=== PATIENT | male | born 1955 | race Caucasian/White ===

== ENCOUNTER 2020-07-30 22:53 | Outpatient (RCR) | payer BC, SELFPAY ==
[2020-07-30] MEDS: COVID-19 VACC, MRNA(PFIZER)/PF 30 MCG/0.3 ML SYRINGE IM (14:03)
[2020-08-20] MEDS: COVID-19 VACC, MRNA(PFIZER)/PF 30 MCG/0.3 ML SYRINGE IM (14:07)
== END 2020-10-29 23:59 ==
LOC: IMMUN 22:53
PROVIDERS: PCP Internal Medicine; Visit Provider Family Medicine
DX: Z23 Encounter for immunization (principal)
CPT/HCPCS: 0001A; 0002A; 91300

== ENCOUNTER 2024-04-05 17:51 | Inpatient (IN) | payer MEDICARE, OTHER, SELFPAY ==
[2024-04-05 17:52] VITALS: BP 151/103; PULSE 91; RESP 16; TEMP 36.8; O2SAT 96; BMI 34.4
--- NOTE | 2024-04-05 18:35 | EDS_ITS ---
HPI HPI - Fall History of Present Illness Chief Complaint: Fall Narrative Narrative: 69-year-old male past medical history of sciatica and spinal stenosis states he usually gets numbness of his low back and pain radiating down his legs. There are times when his legs buckled out from under him. He states that today, while he was in the bathroom, he experienced the same pain and numbness and his knees buckled causing him to fall hard onto his left hip. He states he may have struck his head but is unsure, but does not take any blood thinners. He states he was unable to move his leg especially at the hip secondary to pain. He also has mild ankle pain on the left as well. His was at home and heard him yelling. She called EMS because he was unable to get up secondary to his left hip and ankle pain. He denies any neck pain, no other injury. Pain is worsened by attempted movement of his left hip and lower extremity. [facility] Medical History (Updated 04/05/24 @ 22:00 by Efrain Lobo MD) Former tobacco use BPH (benign prostatic hyperplasia) Obesity GERD (gastroesophageal reflux disease) Lumbar back pain with radiculopathy affecting lower extremity History of pelvic fracture Hernia Arthritis Spinal stenosis of lumbar region Home Medications ?Medication ?Instructions ?Recorded ?Last Taken ?Type famotidine 40 mg tablet 40 mg PO DAILY 04/05/24 Unknown History finasteride 5 mg tablet 5 mg PO DAILY 04/05/24 Unknown History gabapentin 600 mg tablet 600 mg PO TID 04/05/24 Unknown History meloxicam 15 mg tablet 15 mg PO DAILY 04/05/24 Unknown History tamsulosin 0.4 mg capsule 0.4 mg PO DAILY 04/05/24 Unknown History tramadol 50 mg tablet 50 mg PO TID 04/05/24 Unknown History Allergy/AdvReac Type Severity Reaction Status Date / Time No Known Allergies Allergy Verified 04/05/24 17:52 Social History Smoking Status: Former smoker ROS ROS ED ROS Narrative Review of systems positive for left hip and left ankle pain. No headache. No neck pain. Denies any prodromal chest pain or shortness of breath. EXAM Physical Exam Narrative Exam Narrative: GCS 15. ABCs intact. Head is normocephalic and atraumatic. PERRL EOMI. Cardiovascular examination reveals a regular rate and rhythm. Lungs clear to auscultation bilaterally. Abdomen soft nontender with positive bowel sounds. Pelvis appears stable but he has diffuse tenderness to palpation left hip. His left leg is held in external rotation. There is diffuse tenderness to the left ankle as well. EHL intact, left. Range of motion of left hip limited secondary to pain. Positive pain with minimal logrolling of left femur. Const Vital Signs: 04/05/24 17:52 04/05/24 17:56 04/05/24 19:51 Temperature 98.3 F Temperature Source Oral Pulse Rate 91 85 Respiratory Rate 16 16 Respiratory Effort Normal Respiratory Depth Normal Respiratory Pattern Normal Blood Pressure 151/103 H 164/115 H Blood Pressure Mean 119 131 Pulse Ox 96 97 Oxygen Delivery Method Room Air Room Air Room Air Oxygen Flow Rate (L/min) 96 04/05/24 21:00 04/05/24 21:44 Temperature 97.8 F Temperature Source Pulse Rate 71 113 H Respiratory Rate 16 16 Respiratory Effort Respiratory Depth Respiratory Pattern Blood Pressure 161/112 H 166/109 H Blood Pressure Mean 128 128 Pulse Ox 97 96 Oxygen Delivery Method Room Air Oxygen Flow Rate (L/min) MDM MDM MDM Narrative Medical decision making narrative: Differential diagnosis includes but not limited to left hip fracture versus p elvic fracture versus fracture dislocation versus hip contusion. Patient had received 100 mcg of fentanyl per EMS. He was administered Dilaudid 0.5 mg here intravenously and x-rays obtained of the pelvis and left hip as well as the left ankle. Patient was unable to tolerate laying flat for CT of the brain, I do not think that it is necessarily indicated as I have low suspicion for intracranial hemorrhage because he does have a headache and there was no loss of consciousness. X-rays of the left hip interpreted by myself independently show intertrochanteric fracture of the left hip. I will obtain medical screening laboratories including CBC, CMP, EKG, and chest x-ray. I reviewed and interpreted the x-rays of the left ankle and see no evidence of acute fracture or dislocation. I reviewed the radiology report which confirms my independent interpretation. I reviewed the radiology report for the left hip as well, and they comment that there is no visualized fracture line and that the re is deformity and CT would be helpful. Although clinically and on my independent interpretation I do feel that he probably has an intertrochanteric hip fracture, I discussed patient with Dr. Lucas with orthopedics who agrees with CT scan of the left hip. Patient did receive additional dose of Dilaudid 0.5 mg and oral Valium 2.5 mg for muscle spasms. He was able to lie flat for the left hip CT scan. I reviewed the radiology report for the CT scan of the left hip which does show an impacted, comminuted left hip fracture that is intertrochanteric. Chest x-ray in 1 view interpreted by myself for preop clearance shows no evidence of an acute pneumothorax or pneumonia. I reviewed the radiology report which comments on right middle lobe atelectasis which confirms my independent interpretation. I was able to review his laboratory work, and he has a normal white count of 7.9 with hemoglobin 13.9 and platelet count low at 125 which I think is nonspecific. There is no prior with which to compare. CMP is remarkable for glucose of 137. Chloride slightly elevated at 109, normal sodium and potassium. EKG obtained and interpreted by myself independently as sinus tachycardia at [address] changes. No STEMI. Given his left hip fracture, I did inform Dr. Lucas of the CT results via backline. I then discussed patient with Dr. Beatriz Hsieh for admission to the medical surgical floor. Disposition admit in stable condition. History & Record Review Discussion w/independent historian: Patient and Family Lab Data Attestation: I reviewed the patient's lab results. Labs: Laboratory Results - last 24 hr 04/05/24 20:06 WBC 7.9 RBC 4.17 L Hgb 13.9 Hct 41.1 MCV 98.6 H MCH 33.3 H MCHC 33.8 RDW Std Deviation 48.8 H RDW Coeff of Roseann 13.4 Plt Count 125 L MPV 10.7 Immature Gran % (Auto) 0.800 Neut % (Auto) 85.1 H Lymph % (Auto) 7.5 L Wilbarger % (Auto) 6.0 Eos % (Auto) 0.3 Baso % (Auto) 0.3 Absolute Neuts (auto) 6.7 Absolute Lymphs (auto) 0.59 L Nucleated RBC % 0 Sodium 141 Potassium 4.4 Chloride 109 H Carbon Dioxide 27.0 Anion Gap 5 BUN 26 H Creatinine 0.88 Estim Creat Clear Calc 112.84 Est GFR (MDRD) Af Amer 111 Est GFR (MDRD) Non-Af 92 BUN/Creatinine Ratio 29.6 H Glucose 137 H Calcium 8.7 Total Bilirubin 1.30 H AST 24 ALT 23 Alkaline Phosphatase 71 Total Protein 7.2 Albumin 3.7 Globulin 3.5 Albumin/Globulin Ratio 1.1 Radiography Diagnostic Testing: Clinical Impression(s) from Imaging Studies Ankle X-Ray 04/05/24 18:55 IMPRESSION: Severe diffuse osteopenia of uncertain etiology. No acute fracture or dislocation Electronically Signed: Tevin Braun MD at 20:13 EST , Hip/Pelvis X-Ray 04/05/24 18:55 IMPRESSION: Deformity of the left hip possibly posttraumatic. CT would be helpful for further evaluation if strong clinical suspicion for acute fracture . Electronically Signed: Tevin Braun MD at 20:10 EST , Chest X-Ray 04/05/24 20:26 IMPRESSION: Probable right middle lobe atelectasis. Lateral view would be useful for further assessment Electronically Signed: Tevin Braun MD at 20:51 EST , Lower Extremity CT 04/05/24 20:43 IMPRESSION: Acute impacted comminuted impacted intertrochanteric fracture. Electronically Signed: Tevin Braun MD at 21:11 EST , Management Discussion w/another healthcare provider: Hospitalist (Dr. Hsieh) and Hand Bindery Assembly Worker (Dr. Lucas, Orthopaedics) Discharge Plan Dx/Rx/DC Orders Clinical Impression: Fall, Closed left hip fracture, Left ankle sprain Disposition Disposition: Acute Care Hospital [facility]
[2024-04-05] MEDS: HYDROmorphone 0.5 MG/0.5 ML SYRINGE IV ×2 (18:41→20:17)
--- NOTE | 2024-04-05 18:55 | RAD_ITS ---
STUDY: X-RAY - LEFT ANKLE REASON FOR EXAM: Male, 69 years old. trauma, pain TECHNIQUE: 2 view(s) of the ankle. COMPARISON: None. FINDINGS: Bony structures are severely osteopenic for age. No evidence for acute fracture or dislocation. Normal medial and lateral malleoli. Normal tibiotalar articulation and ankle mortise. Normal visualized talus and calcaneus. The visualized subtalar, talonavicular, calcaneocuboid and tarsal articulations are normal. The soft tissue structures are unremarkable. RAD/Ankle 2 Views IMPRESSION: Severe diffuse osteopenia of uncertain etiology. No acute fracture or dislocation Electronically Signed: Tevin Braun MD at 20:13 EST ,
--- NOTE | 2024-04-05 18:55 | RAD_ITS ---
STUDY: X-RAY - PELVIS AND LEFT HIP REASON FOR EXAM: Male, 69 years old. trauma, pain TECHNIQUE: 3 views of the pelvis and hip. COMPARISON: None. FINDINGS: There is a non-specific bowel gas pattern. Normal visualized soft tissue structures. Normal bilateral iliac wings, sacroiliac joints and visualized sacrum. Normal bilateral superior and inferior pubic rami. Normal pubic symphysis. Normal bilateral ischial tuberosities. There are degenerative changes of both hips . There is deformity of left hip although no fracture line is observed. CT would be useful for more definitive evaluation. RAD/HIP, UNI W/ Pelvis 2-3 Views IMPRESSION: Deformity of the left hip possibly posttraumatic. CT would be helpful for further evaluation if strong clinical suspicion for acute fracture . Electronically Signed: Tevin Braun MD at 20:10 EST ,
[2024-04-05 19:51] VITALS: BP 164/115; PULSE 85; RESP 16; O2SAT 97
--- NOTE | 2024-04-05 19:55 | EKG12_ITS ---
Test Reason : ARRYTH Blood Pressure : */* mmHG Vent. Rate : 101 BPM Atrial Rate : 101 BPM P-R Int : 148 ms QRS Dur : 94 ms QT Int : 330 ms P-R-T Axes : 31 6 58 degrees QTcB Int : 427 ms Sinus tachycardia Junctional ST depression, probably normal Borderline ECG Confirmed by CISCO BORDEN, BYRON ([id number]), associate editor SAM BOUCHER ([id number]) on 04/06/2024 1:50:22 P M Referred By: Efrain Lobo Confirmed By: BYRON PECK MD
[2024-04-05 20:13] LABS: Absolute Lymphocyte Count 0.59 X10^3/uL (0.83-4.51); Absolute Neutrophil Count 6.7 X10^3/uL (2.0-7.7); Basophil# 0.02 X10^3/uL; Basophil% 0.3 % (0-1); Eosinophil# 0.02 X10^3/uL; Eosinophils% 0.3 % (0-5); Hematocrit 41.1 % (40-54); Hemoglobin 13.9 g/dL (13.0-16.5); Lymphocyte # 0.59 X10^3/ul (0.83-4.51); Lymphocyte % 7.5 % (19-41); Mean Corp Hgb Conc 33.8 g/dL (32-36); Mean Corpuscular Hgb 33.3 pg (27.0-32.0); Mean Corpuscular Volume 98.6 fL (80-94); Mean Platelet Vol. 10.7 fl (6.2-12.0); Monocyte# 0.47 X10^3/uL; NRBC Flagged by Analyzer 0 % (0-5); Neutrophil # 6.72 X10^3/uL (2.7-7.7); Neutrophil % 85.1 % (47-70); POSITIVE DIFFERENTIAL YES; Platelet Count 125 K/mm3 (150-450); RBC Distribution Width CV 13.4 % (11.6-14.6); RBC Distribution Width SD 48.8 fl (35.1-43.9); Red Blood Count 4.17 M/mm3 (4.6-6.2); White Blood Count 7.9 K/mm3 (4.4-11.0)
[2024-04-05] MEDS: diazePAM 5 MG Tablet 2.5 MG PO (20:17)
--- NOTE | 2024-04-05 20:26 | RAD_ITS ---
STUDY: X-RAY CHEST REASON FOR EXAM: Male, 69 years old. cad TECHNIQUE: AP portable COMPARISON: None. FINDINGS: Mildly increased density obscuring the right lung border which may be consistent with mild right middle lobe atelectasis. There is no demonstrated pleural abnormality. Normal size heart. Normal mediastinum and rene. Normal visualized pulmonary arteries. Normal visualized aortic arch and descending thoracic aorta. Dorsal spine demonstrates degenerative changes. Normal visualized ribs, clavicles, and shoulders. There is no demonstrated abnormality of the visualized soft tissue structures of the upper abdomen. RAD/Chest 1 View (Portable) IMPRESSION: Probable right middle lobe atelectasis. Lateral view would be useful for further assessment Electronically Signed: Tevin Braun MD at 20:51 EST ,
[2024-04-05 20:33] LABS: ALB/GLOB Ratio 1.1 RATIO (0.9-2.4); AST(SGOT) 24 U/L (15-37); Alanine Aminotransfer ALT/SGPT 23 U/L (16-61); Albumin, Serum 3.7 g/dL (3.2-5.0); Alkaline Phosphatase 71 U/L (45-117); Anion Gap 5 (5-15); BUN 26 mg/dL (7-18); BUN/Creat Ratio 29.6 RATIO (10-20); Calcium,Total 8.7 mg/dL (8.5-10.1); Chloride 109 mmol/L (98-107); Creatinine, Serum 0.88 mg/dL (0.70-1.30); EST Glomerular Filtration Rate 92 mL/min (>60); Est Glom Filt Rate - Afr Amer 111 mL/min (>60); Estimated Creatinine Clearance 112.84 ml/min; Globulin 3.5 g/dL (2.2-4.2); Glucose 137 mg/dL (74-106); Potassium 4.4 mmol/L (3.5-5.1); Protein, Total 7.2 g/dL (6.4-8.2); Sodium Level 141 mmol/L (136-145)
--- NOTE | 2024-04-05 20:43 | CT_ITS ---
CT LEFT LOWER EXTREMITY WITH 3-D IMAGING CLINICAL INDICATION: pain TECHNIQUE: Axial CT images of the LEFT lower extremity was performed IV contrast material. Coronal and sagittal reformats were provided. The protocol utilizes one or more of the following dose reduction techniques: automated exposure control, adjustment of mA and/or kV according to patient size,and/or use of iterative reconstruction technique. RADIATION DOSAGE (If Supplied By Facility): CTDIvol = ( 46.14 ) mGy, DLP = ( 1359.25 ) mGycm COMPARISON: FINDINGS: Bones: There is an acute impacted comminuted intertrochanteric fracture with mild separation separation, overlapping and varus angulation of fracture fragments. No lytic or blastic osseous masses. Soft Tissues: There are mild edematous changes seen within the muscle bundles. The superficial soft tissues are unremarkable without evidence of edema, hematoma, or foreign body. CT/Extremity Lower without Contra IMPRESSION: Acute impacted comminuted impacted intertrochanteric fracture. Electronically Signed: Tevin Braun MD at 21:11 [facility] ,
[2024-04-05 21:00] VITALS: BP 161/112; PULSE 71; RESP 16; O2SAT 97
--- NOTE | 2024-04-05 21:42 | PCM.HP.STD ---
HPI - General General Date of Admission: 04/05/24 Date of Service: 04/05/24 Chief Complaint: Fall, L hip pain. HPI Narrative The patient is a 69 y/o M w/ PMHx: RADHA not using PAP therapy, Former, tobacco use, Obesity, BPH, Chronic neuropathy/sciatica with spinal stenosis, GERD who presents to the [facility] ED on 04/05/24 with history of chronic issues with paresthesias to the lumbar back rating down his legs unfortunately sometimes causing his legs to buckle and unfortunately on day of presentation he was in the restroom and experienced the same symptoms causing him to fall onto his left hip with unclear trauma to the head with immediate pain following as well as to the left ankle prompting to immediately call EMS as he was unable to get up and crying out for pain. He is currently reporting his pain 5/10 in severity, worse with movement attempts, but improved following ED interventions. Workup in the ED included T98.3, heart rate 91, BP 151/103, respiratory rate 16, 96% on room air, CBC with WBC 7.9, hemoglobin 13.9, platelet 125 with lymphopenia, CMP with chloride 109, BUN/creatinine 26/0.88, GFR 92, glucose 137, T. bili 1.30 otherwise hepatic profile not marked appearing, plain film of the left ankle with severe diffuse osteopenia of unclear etiology with no acute fracture or dislocation, plain film of the left hip and pelvis with deformity of the left hip possibly posttraumatic with recommended CT follow-up, chest x-ray with probable right middle lobe atelectasis, left lower extremity CT with acute impacted comminuted intertrochanteric fracture, EKG with sinus tachycardia with no acute evidence of ischemia. In the ED patient administered Dilaudid 0.5 mg IV x 1 as well as diazepam 2.5 mg p.o. x 1. Per ED report patient did receive 100 mcg of fentanyl per EMS on route secondary to pain. ED discussed case with Orthopedic surgeon Dr. Lucas. [facility] Medical History (Updated 04/05/24 @ 23:[address] Beatriz Hsieh MD) RADHA (obstructive sleep apnea) Former tobacco use BPH (benign prostatic hyperplasia) Obesity GERD (gastroesophageal reflux disease) Lumbar back pain with radiculopathy affecting lower extremity History of pelvic fracture Hernia Arthritis Spinal stenosis of lumbar region Home Medications ?Medication ?Instructions ?Recorded ?Last Taken ?Type famotidine 40 mg tablet 40 mg PO DAILY stomach 04/05/24 Unknown History finasteride 5 mg tablet 5 mg PO DAILY prostate 04/05/24 Unknown History gabapentin 600 mg tablet 600 mg PO TID Pain 04/05/24 Unknown History meloxicam 15 mg tablet 15 mg PO DAILY Pain 04/05/24 Unknown History tamsulosin 0.4 mg capsule 0.4 mg PO DAILY Bph 04/05/24 Unknown History tramadol 50 mg tablet 50 mg PO TID pain 04/05/24 Unknown History Allergy/AdvReac Type Severity Reaction Status Date / Time No Known Allergies Allergy Verified 04/05/24 17:52 Family History (Updated 04/05/24 @ 23:[address] Beatriz Hsieh MD) Mother Kidney disease Father Heart disease CAD (coronary artery disease) Hypertension Surgical History (Updated 04/05/24 @ 23:[address] Beatriz Hsieh MD) History of bilateral inguinal hernia repair History of ankle surgery S/P foot surgery, right Social History (Updated 04/05/24 @ 23:[address] Beatriz Hsieh MD) household members: spouse Smoking Status: Former smoker Tobacco: How many years used: 3 how long ago did patient quit smoking: Smoked in the 1980s x 3 years < 1/4 ppd. alcohol intake: never substance use type: does not use ROS ROS Narrative Admission Review of Systems: CONSTITUTIONAL: No weight loss, fever, chills, + weakness or fatigue. HEENT: Eyes: No visual loss, blurred vision, double vision or yellow sclerae. Ears, Nose, Throat: No hearing loss, sneezing, congestion, runny nose or sore throat. SKIN: No rash or itching, lesions, wounds. CARDIOVASCULAR: No chest pain, chest pressure or chest discomfort, palpitations, edema, orthopnea, syncopal events. RESPIRATORY: No shortness of breath, cough or sputum, wheezing, hemoptysis. GASTROINTESTINAL: No anorexia, nausea, vomiting or diarrhea, abdominal pain, melena, BRBPR. GENITOURINARY: + Intermittent chronic issues with urinary retention w/ BPH. No dysuria, frequency, urgency. NEUROLOGICAL: + intermittent lumbar back pain with radiculopathy/radicular pain. No headache, dizziness, syncope, paralysis, ataxia, focal weakness, change in bowel or bladder control, seizure. MUSCULOSKELETAL: + muscle, back pain, joint pain or stiffness. HEMATOLOGIC: No anemia, bleeding or bruising. LYMPHATICS: No enlarged nodes. No history of splenectomy. PSYCHIATRIC: No history of depression or anxiety. ENDOCRINOLOGIC: No reports of sweating, cold or heat intolerance. No polyuria or polydipsia. ALLERGIES: No history of asthma, hives, eczema or rhinitis. Vital Signs Vital Signs Vital Signs: 04/05/24 17:52 04/05/24 17:56 04/05/24 19:51 Temperature 98.3 F Temperature Source Oral Pulse Rate 91 85 Respiratory Rate 16 16 Respiratory Effort Normal Respiratory Depth Normal Respiratory Pattern Normal Blood Pressure 151/103 H 164/115 H Blood Pressure Mean 119 131 Pulse Ox 96 97 Oxygen Delivery Method Room Air Room Air Room Air Oxygen Flow Rate (L/min) 96 04/05/24 21:00 Temperature Temperature Source Pulse Rate 71 Respiratory Rate 16 Respiratory Effort Respiratory Depth Respiratory Pattern Blood Pressure 161/112 H Blood Pressure Mean 128 Pulse Ox 97 Oxygen Delivery Method Room Air Oxygen Flow Rate (L/min) Weight Weight: 275 lb 9.245 oz Body Mass Index (BMI) 34.4 Physical Exam Narrative Physical Examination: General: Awake, alert, oriented x 3 and cooperative, seated upright in the ED bed, severely uncomfortable, currently rating pain 10 out of 10, asking for more regimen. Skin: Normal color, normal turgor, no icterus, no cyanosis except for ecchymoses likely related with recent fall. HEENT: AT/NC, EOMI, PERRLA, moderately dry MM, no carotid bruits or JVD noted. Lungs: Diminished, greater bases, mildly increased respiratory rate but no evidence of any distress, no rales, ronchi or wheezing. Heart: Mildly tachycardic with regular rhythm; no gallop, rub audible. Abdomen: Soft, obese, NTTP, ND, mildly hyperactive BS, no appreciated HSM. Extremities: No cyanosis, no clubbing, mild ankle bilateral not markedly pitting edema, left lower extremity mildly shortened and rotated. Neurological: Patient awake, alert, oriented as noted, cognitive function intact; pupils equally reactive to light and accommodation, cranial nerves grossly normal, significantly limited movement given fall with left hip fracture, strength severely globally decreased. Psychiatric: Affect appears severely uncomfortable, no acute evidence of depressive or anxiety feelings. Results Lab / Micro Data 04/05/24 20:06 04/05/24 20:06 Labs: Laboratory Results - last 24 hr 04/05/24 20:06: WBC 7.9, RBC 4.17 L, Hgb 13.9, Hct 41.1, MCV 98.6 H, MCH 33.3 H, MCHC 33.8, RDW Std Deviation 48.8 H, RDW Coeff of Roseann 13.4, Plt Count 125 L, MPV 10.7, Immature Gran % (Auto) 0.800, Neut % (Auto) 85.1 H, Lymph % (Auto) 7.5 L, Grayson % (Auto) 6.0, Eos % (Auto) 0.3, Baso % (Auto) 0.3, Absolute Neuts (auto) 6.7, Absolute Lymphs (auto) 0.59 L, Nucleated RBC % 0, Sodium 141, Potassium 4.4, Chloride 109 H, Carbon Dioxide 27.0, Anion Gap 5, BUN 26 H, Creatinine 0.88, Estim Creat Clear Calc 112.84, Est GFR (MDRD) Af Amer 111, Est GFR (MDRD) Non-Af 92, BUN/Creatinine Ratio 29.6 H, Glucose 137 H, Calcium 8.7, Total Bilirubin 1.30 H, AST 24, ALT 23, Alkaline Phosphatase 71, Total Protein 7.2, Albumin 3.7, Globulin 3.5, Albumin/Globulin Ratio 1.1 Imaging Radiology Impression Ankle X-Ray 04/05/24 18:55 IMPRESSION: Severe diffuse osteopenia of uncertain etiology. No acute fracture or dislocation Electronically Signed: Tevin Braun MD at 20:13 EST Reading Location ID and State: [facility] / [place] Tel [phone], Service support , Hip/Pelvis X-Ray 04/05/24 18:55 IMPRESSION: Deformity of the left hip possibly posttraumatic. CT would be helpful for further evaluation if strong clinical suspicion for acute fracture . Electronically Signed: Tevin Braun MD at 20:10 EST , Chest X-Ray 04/05/24 20:26 IMPRESSION: Probable right middle lobe atelectasis. Lateral view would be useful for further assessment Electronically Signed: Tevin Braun MD at 20:51 EST Reading Location ID and State: [place] / [place] Tel [phone], Service support , Lower Extremity CT 04/05/24 20:43 IMPRESSION: Acute impacted comminuted impacted intertrochanteric fracture. Electronically Signed: Tevin Braun MD at 21:11 EST , Assessment & Plan Assessment/Plan (1) Closed left hip fracture: PLAN: Plan The patient is a 69 y/o M w/ PMHx: RADHA not using PAP therapy, Former, tobacco use, Obesity, BPH, Chronic neuropathy/sciatica with spinal stenosis, GERD who presents to the [facility] ED on 04/05/24 with history of chronic issues with paresthesias to the lumbar back rating down his legs unfortunately sometimes causing his legs to buckle and unfortunately on day of presentation he was in the restroom and experienced the same symptoms causing him to fall onto his left hip with unclear trauma to the head with immediate pain following as well as to the left ankle prompting to immediately call EMS as he was unable to get up and crying out for pain. #1. General debility, left hip pain s/p mechanical fall w/ left acutely impacted comminuted intertrochanteric fracture: Orthopedic surgery consulted from ED. Will admit to MS, maintain NPO after midnight for planned operative intervention, continue gentle IVFs, casper placement, monitor I/Os, frequent positioning, fall precautions, as needed pain, anti-emetic regimen, continue chronic gabapentin home regimen. PT/OT following operative intervention. CM consulted for discharge planning. Per NSQIP patient risk on the lower to moderate and with no marked medical history with EKG with ST with no acute evidence of ischemia thus given no acute concerning findings agree with progression to operative intervention as soon as surgery is able which was discussed with surgery. #2. Elevated BP without hypertensive diagnosis: Admission BP/ED BP elevated above goal, possibly related with acute presentation pain, continue to monitor and add regimen if appropriate, as needed IV hydralazine in the interim #3. Thrombocytopenia, unclear chronicity: Admission platelet 125, no comparison baseline, will continue to trend CBC. #4. Hyperglycemia, no diabetic history reported: Admission glucose 137, possibly stress response given pain and acute presentation as noted, will obtain hemoglobin A1c. #5. Chronic lumbar back pain with radiculopathy: Complicates presentation, encourage positional changes once able, will continue patient chronic gabapentin regimen with additional adjustments to pain regimen given acute presentation as noted above. #6. BPH: We will continue patient home finasteride and Flomax regimen. #7. Obesity: Weight loss and lifestyle changes encouraged. #8. GERD: We will continue patient on famotidine regimen. #9. Former tobacco use: Encourage continued tobacco cessation. #10. RADHA: Not using PAP therapy but if needed amenable he notes. #11. DVT prophylaxis: SCDs in preparation for operative intervention 04/06/2024. #12. CODE status: Patient HCPOA and LW are not in place but his who is present would be his decision maker he notes if he was unable. Discussed CODE status at length including difference between FULL code, DNR-CCA and DNR-CC status. Following discussions about the differences in these status, requested Full Code status. Advanced Care Planning Face to Face Time: 16 minutes. Charges/Coding Visit Charges Inpatient E&M: 02136 Init Hosp L3 Procedures Hospitalists Procedures: 13900 Advncd Care Plan 30 Min
[2024-04-05 21:44] VITALS: BP 166/109; PULSE 113; RESP 16; TEMP 36.6; O2SAT 96
[2024-04-05 23:02] VITALS: BP 147/87; PULSE 118; RESP 18; TEMP 36.6; O2SAT 94
[2024-04-05] MEDS: Morphine 4 MG/ML Syringe IV (23:16)
[2024-04-05] MEDS: Gabapentin 600 MG Tablet PO (23:36)
[2024-04-05] MEDS: Senna/Docusate Sodium 1 Tablet 2 TABLET PO (23:36)
[2024-04-06] VITALS (18 sets, daily range): BP systolic 116–143; BP diastolic 67–83; PULSE 86–122; RESP 16–18; TEMP 36.2–37.6; O2SAT 93–97; BMI 33.1; BMI 32.9
[2024-04-06] MEDS: oxyCODONE 5 MG Tablet PO ×4 (00:20→23:18)
[2024-04-06] MEDS: Acetaminophen 325 MG Tablet 650 MG PO ×3 (00:20→23:18)
[2024-04-06] MEDS: Ondansetron 4 MG/2 ML Vial IV (00:49)
[2024-04-06] MEDS: Morphine 4 MG/ML Syringe IV ×5 (01:18→11:10)
[2024-04-06] MEDS: Gabapentin 600 MG Tablet PO ×2 (04:59→20:55)
[2024-04-06 07:09] LABS: Absolute Lymphocyte Count 0.88 X10^3/uL (0.83-4.51); Absolute Neutrophil Count 5.7 X10^3/uL (2.0-7.7); Hematocrit 37.3 % (40-54); Hemoglobin 12.7 g/dL (13.0-16.5); Lymphocyte # 0.88 X10^3/ul (0.83-4.51); Lymphocyte % 12.2 % (19-41); Mean Corpuscular Hgb 33.1 pg (27.0-32.0); Mean Corpuscular Volume 97.1 fL (80-94); Mean Platelet Vol. 10.8 fl (6.2-12.0); Monocyte# 0.57 X10^3/uL; Monocyte% 7.9 % (0-10); NRBC Flagged by Analyzer 0 % (0-5); Neutrophil % 79.3 % (47-70); Platelet Count 127 K/mm3 (150-450); RBC Distribution Width CV 13.4 % (11.6-14.6); RBC Distribution Width SD 47.9 fl (35.1-43.9); Red Blood Count 3.84 M/mm3 (4.6-6.2); White Blood Count 7.2 K/mm3 (4.4-11.0)
[2024-04-06 07:51] LABS: ALB/GLOB Ratio 1.1 RATIO (0.9-2.4); AST(SGOT) 20 U/L (15-37); Alanine Aminotransfer ALT/SGPT 18 U/L (16-61); Albumin, Serum 3.4 g/dL (3.2-5.0); Alkaline Phosphatase 64 U/L (45-117); Anion Gap 5 (5-15); BUN 20 mg/dL (7-18); BUN/Creat Ratio 31.1 RATIO (10-20); Calcium,Total 8.8 mg/dL (8.5-10.1); Chloride 107 mmol/L (98-107); Creatinine, Serum 0.64 mg/dL (0.70-1.30); EST Glomerular Filtration Rate 131 mL/min (>60); Est Glom Filt Rate - Afr Amer 158 mL/min (>60); Estimated Creatinine Clearance 121.76 ml/min; Globulin 3.1 g/dL (2.2-4.2); Glucose 142 mg/dL (74-106); Potassium 3.8 mmol/L (3.5-5.1); Protein, Total 6.5 g/dL (6.4-8.2); Sodium Level 139 mmol/L (136-145)
--- NOTE | 2024-04-06 08:01 | PN.HOSP_ITS ---
Reason for Visit Reason for Visit: Diagnoses Fracture of unspecified part of neck of left femur, initial encounter for closed fracture (04/05/24) Subjective Subjective Patient is a 69-year-old gentleman who presented to the emergency department following a fall imaging studies demonstrated left acutely impacted comminuted intertrochanteric fracture. Admitted to regular nursing floor with consultation placed orthopedic surgery Objective Data Objective Data Vital Signs: Vital Signs Temp Pulse Resp BP Pulse Ox O2 Del Method O2 Flow Rate 98.5 F 117 H 16 129/69 H 97 Room Air 96 04/06/24 04:52 04/06/24 05:04 04/06/24 04:52 04/06/24 04:52 04/06/24 04:52 04/06/24 04:52 04/05/24 17:56 Oxygen Flow Rate (L/min) 96 Oxygen Delivery Method Room Air Weight: 120.2 kg Body Mass Index (BMI) 32.9 Intake & Output: Intake and Output for Last 24 Hours 04/04/24 04/05/24 04/06/24 23:59 23:59 23:59 Intake Total 0 / 300 300 / 300 Output Total 275 / 275 450 / 450 Balance -275 / 25 -150 / -150 Lab / Micro Data 04/06/24 06:35 04/06/24 06:35 Labs: Laboratory Results - last 24 hr 04/05/24 20:06: WBC 7.9, RBC 4.17 L, Hgb 13.9, Hct 41.1, MCV 98.6 H, MCH 33.3 H, MCHC 33.8, RDW Std Deviation 48.8 H, RDW Coeff of Roseann 13.4, Plt Count 125 L, MPV 10.7, Immature Gran % (Auto) 0.800, Neut % (Auto) 85.1 H, Lymph % (Auto) 7.5 L, [place] % (Auto) 6.0, Eos % (Auto) 0.3, Baso % (Auto) 0.3, Absolute Neuts (auto) 6.7, Absolute Lymphs (auto) 0.59 L, Nucleated RBC % 0, Sodium 141, Potassium 4.4, Chloride 109 H, Carbon Dioxide 27.0, Anion Gap 5, BUN 26 H, Creatinine 0.88, Estim Creat Clear Calc 112.84, Est GFR (MDRD) Af Amer 111, Est GFR (MDRD) Non-Af 92, BUN/Creatinine Ratio 29.6 H, Glucose 137 H, Calcium 8.7, Total Bilirubin 1.30 H, AST 24, ALT 23, Alkaline Phosphatase 71, Total Protein 7.2, Albumin 3.7, Globulin 3.5, Albumin/Globulin Ratio 1.1 04/06/24 06:35: WBC 7.2, RBC 3.84 L, Hgb 12.7 L, Hct 37.3 L, MCV 97.1 H, MCH 33.1 H, MCHC 34.0, RDW Std Deviation 47.9 H, RDW Coeff of Roseann 13.4, Plt Count 127 L, MPV 10.8, Immature Gran % (Auto) 0.600, Neut % (Auto) 79.3 H, Lymph % (Auto) 12.2 L, [place] % (Auto) 7.9, Eos % (Auto) 0.0, Baso % (Auto) 0.0, Absolute Neuts (auto) 5.7, Absolute Lymphs (auto) 0.88, Nucleated RBC % 0, Sodium 139, Potassium 3.8, Chloride 107, Carbon Dioxide 27.0, Anion Gap 5, BUN 20 H, C reatinine 0.64 L, Estim Creat Clear Calc 121.76, Est GFR (MDRD) Af Amer 158, Est GFR (MDRD) Non-Af 131, BUN/Creatinine Ratio 31.1 H, Glucose 142 H, Calcium 8.8, Total Bilirubin 2.10 H, AST 20, ALT 18, Alkaline Phosphatase 64, Total Protein 6.5, Albumin 3.4, Globulin 3.1, Albumin/Globulin Ratio 1.1 Radiography Diagnostic Testing: Radiology Impression Ankle X-Ray 04/05/24 18:55 IMPRESSION: Severe diffuse osteopenia of uncertain etiology. No acute fracture or dislocation Electronically Signed: Tevin Braun MD at 20:13 EST , Hip/Pelvis X-Ray 04/05/24 18:55 IMPRESSION: Deformity of the left hip possibly posttraumatic. CT would be helpful for further evaluation if strong clinical suspicion for acute fracture . Electronically Signed: Tevin Braun MD at 20:10 EST , Chest X-Ray 04/05/24 20:26 IMPRESSION: Probable right middle lobe atelectasis. Lateral view would be useful for further assessment Electronically Signed: Tevin Braun MD at 20:51 EST , Lower Extremity CT 04/05/24 20:43 IMPRESSION: Acute impacted comminuted impacted intertrochanteric fracture. Electronically Signed: Tevin Braun MD at 21:11 EST , Physical Exam Narrative GENERAL: cooperative HEENT: Atraumatic; normocephalic EYES; Anicteric, Normal Conjunctiva NECK; supple, normal thyroid, RESPIRATORY: Diminished to auscultation CARDIOVASCULAR: Regular S1 S2, GI: soft, normoactive bowel sounds, : No Renal angle tenderness; EXTREMITIES: No edema, no clubbing, MUSCULOSKELETAL: no muscle wasting NEURO: Awake; no lateralizing signs. SKIN: No Rash PSYCH; Flat affect Assessment & Plan Assessment/Plan (1) Closed left hip fracture: PLAN: Plan Patient is a 69-year-old gentleman who presented to the emergency department following a fall imaging studies demonstrated left acutely impacted comminuted intertrochanteric fracture. Admitted to regular nursing floor with consultation placed orthopedic surgery 1. Fall with left acutely impacted comminuted intertrochanteric fracture. -Admitted to regular nursing floor treatment initiated with pain meds immobilization with consultation placed to orthopedic surgery. Patient preop assessment as documented by admitting physician 2.Elevated blood pressure on admission ? Patient does not have history of hypertension. This is reactive to. Do expect improvement seen blood pressure once pain is adequately controlled 3. Peripheral neuropathy ? Patient is a gabapentin 4. GERD ? On famotidine 5. BPH with lower urinary obstructive symptoms - Patient treated with tamsulosin and finasteride continued 7. Mild thrombocytopenia -Ordered CBC with differential for monitoring 8. Class I obesity with BMI of 33.1 ? Complicating care weight loss advised 9. Obstructive sleep apnea ? Consistent use of PAP therapy encouraged 10. Generalized osteoarthritis ? Patient is on meloxicam at home 11. DVT prophylaxis ? Bilateral SCDs for now with plans to initiate chemoprophylaxis following patient's surgery Time spent in the patient's overall evaluation,decision-making process, review of diagnostic data, adjustment of management, discussion with other providers, nursing nursing and ancillary staff involved in patient's care documentation, 50 Minutes Charges/Coding Visit Charges Inpatient E&M: 42172 Subs Hosp L3
[2024-04-06] MEDS: 0.9% Saline Lock 10 ML Syringe IV ×2 (09:04→11:10)
[2024-04-06 10:02] LABS: Hemoglobin A1c 5.6 % (3.8-5.6)
[2024-04-06] MEDS: Lactated Ringers 1,000 ML 15 ML IV (12:13)
--- NOTE | 2024-04-06 12:39 | CONS.ORTHO ---
Documented by User: DIANA Colon 04/06/24 13:07 HPI Consult Data Date of Consult: 04/06/24 HPI Narrative HPI Narrative: TAVO SALAZAR, is a 69 M who presents w/ PMHx: RADHA not using PAP therapy, Former, tobacco use, Obesity, BPH, Chronic neuropathy/sciatica with spinal stenosis, GERD who presents to the [facility] ED on 04/05/24 with history of chronic issues with paresthesias to the lumbar back rating down his legs unfortunately sometimes causing his legs to buckle and unfortunately on day of presentation he was in the restroom and experienced the same symptoms causing him to fall onto his left hip with unclear trauma to the head with immediate pain following as well as to the left ankle prompting to immediately call EMS as he was unable to get up and crying out for pain. [facility] Medical History RADHA (obstructive sleep apnea) Former tobacco use BPH (benign prostatic hyperplasia) Obesity GERD (gastroesophageal reflux disease) Lumbar back pain with radiculopathy affecting lower extremity History of pelvic fracture Hernia Arthritis Spinal stenosis of lumbar region Home Medications ?Medication ?Instructions ?Recorded ?Last Taken ?Type famotidine 40 mg tablet 40 mg PO DAILY stomach 04/05/24 Unknown History finasteride 5 mg tablet 5 mg PO DAILY prostate 04/05/24 Unknown History gabapentin 600 mg tablet 600 mg PO TID Pain 04/05/24 Unknown History meloxicam 15 mg tablet 15 mg PO DAILY Pain 04/05/24 Unknown History tamsulosin 0.4 mg capsule 0.4 mg PO DAILY Bph 04/05/24 Unknown History tramadol 50 mg tablet 50 mg PO TID pain 04/05/24 Unknown History Allergy/AdvReac Type Severity Reaction Status Date / Time No Known Allergies Allergy Verified 04/05/24 17:52 Family History Mother Kidney disease Father Heart disease CAD (coronary artery disease) Hypertension Surgical History History of bilateral inguinal hernia repair History of ankle surgery S/P foot surgery, right Social History household members: spouse Smoking Status: Former smoker Tobacco: How many years used: 3 how long ago did patient quit smoking: Smoked in the 1980s x 3 years < 1/4 ppd. alcohol intake: never substance use type: does not use Vital Signs Vital Signs Vital Signs: 04/05/24 17:52 04/05/24 17:56 04/05/24 19:51 Temperature 98.3 F Temperature Source Oral Pulse Rate 91 85 Respiratory Rate 16 16 Respiratory Effort Normal Respiratory Depth Normal Respiratory Pattern Normal Blood Pressure 151/103 H 164/115 H Blood Pressure Mean 119 131 Blood Pressure Source Blood Pressure Position Blood Pressure Location Pulse Ox 96 97 Oxygen Delivery Method Room Air Room Air Room Air Oxygen Flow Rate (L/min) 96 04/05/24 21:00 04/05/24 21:44 04/05/24 23:02 Temperature 97.8 F 98 F Temperature Source Temporal Pulse Rate 71 113 H 118 H Respiratory Rate 16 16 18 Respiratory Effort Respiratory Depth Respiratory Pattern Blood Pressure 161/112 H 166/109 H 147/87 H Blood Pressure Mean 128 128 107 Blood Pressure Source Monitor Blood Pressure Position Semi-Fowlers Blood Pressure Location Left Forearm Pulse Ox 97 96 94 Oxygen Delivery Method Room Air Room Air Oxygen Flow Rate (L/min) 04/06/24 01:17 04/06/24 01:22 04/06/24 04:52 Temperature 98.5 F Temperature Source Oral Pulse Rate 122 H 117 H Respiratory Rate 16 16 Respiratory Effort Normal Non-Labored Respiratory Depth Normal Respiratory Pattern Normal Blood Pressure 138/79 H 129/69 H Blood Pressure Mean 98 89 Blood Pressure Source Monitor Monitor Blood Pressure Position Semi-Fowlers Semi-Fowlers Blood Pressure Location Right Forearm Left Arm Pulse Ox 94 97 Oxygen Delivery Method Room Air Room Air Oxygen Flow Rate (L/min) 04/06/24 05:04 04/06/24 07:36 04/06/24 08:14 Temperature 97.8 F Temperature Source Temporal Pulse Rate 117 H 103 H Respiratory Rate 18 Respiratory Effort Respiratory Depth Respiratory Pattern Blood Pressure 136/81 H Blood Pressure Mean 99 Blood Pressure Source Monitor Blood Pressure Position Semi-Fowlers Blood Pressure Location Left Arm Pulse Ox 97 Oxygen Delivery Method Room Air Room Air Oxygen Flow Rate (L/min) 04/06/24 08:17 Temperature Temperature Source Pulse Rate Respiratory Rate Respiratory Effort Normal Non-Labored Respiratory Depth Normal Respiratory Pattern Normal Blood Pressure Blood Pressure Mean Blood Pressure Source Blood Pressure Position Blood Pressure Location Pulse Ox Oxygen Delivery Method Room Air Oxygen Flow Rate (L/min) Weight Weight: 264 lb 15.93 oz Body Mass Index (BMI) 32.9 Physical Exam Const alert and oriented x3 Extremity Extremity Narrative: Left hip pain, leg is shorted with external rotation. Lab / Micro Data 04/06/24 06:35 04/06/24 06:35 Labs: Laboratory Results - last 24 hr 04/05/24 20:06: WBC 7.9, RBC 4.17 L, Hgb 13.9, Hct 41.1, MCV 98.6 H, MCH 33.3 H, MCHC 33.8, RDW Std Deviation 48.8 H, RDW Coeff of Roseann 13.4, Plt Count 125 L, MPV 10.7, Immature Gran % (Auto) 0.800, Neut % (Auto) 85.1 H, Lymph % (Auto) 7.5 L, [place] % (Auto) 6.0, Eos % (Auto) 0.3, Baso % (Auto) 0.3, Absolute Neuts (auto) 6.7, Absolute Lymphs (auto) 0.59 L, Nucleated RBC % 0, Sodium 141, Potassium 4.4, Chloride 109 H, Carbon Dioxide 27.0, Anion Gap 5, BUN 26 H, Creatinine 0.88, Estim Creat Clear Calc 112.84, Est GFR (MDRD) Af Amer 111, Est GFR (MDRD) Non-Af 92, BUN/Creatinine Ratio 29.6 H, Glucose 137 H, Calcium 8.7, Total Bilirubin 1.30 H, AST 24, ALT 23, Alkaline Phosphatase 71, Total Protein 7.2, Albumin 3.7, Globulin 3.5, Albumin/Globulin Ratio 1.1 04/06/24 06:35: WBC 7.2, RBC 3.84 L, Hgb 12.7 L, Hct 37.3 L, MCV 97.1 H, MCH 33.1 H, MCHC 34.0, RDW Std Deviation 47.9 H, RDW Coeff of Roseann 13.4, Plt Count 127 L, MPV 10.8, Immature Gran % (Auto) 0.600, Neut % (Auto) 79.3 H, Lymph % (Auto) 12.2 L, [place] % (Auto) 7.9, Eos % (Auto) 0.0, Baso % (Auto) 0.0, Absolute Neuts (auto) 5.7, Absolute Lymphs (auto) 0.88, Nucleated RBC % 0, Sodium 139, Potassium 3.8, Chloride 107, Carbon Dioxide 27.0, Anion Gap 5, BUN 20 H, Creatinine 0.64 L, Estim Creat Clear Calc 121.76, Est GFR (MDRD) Af Amer 158, Est GFR (MDRD) Non-Af 131, BUN/Creatinine Ratio 31.1 H, Glucose 142 H, Hemoglobin A1c 5.6, Calcium 8.8, Total Bilirubin 2.10 H, AST 20, ALT 18, Alkaline Phosphatase 64, Total Protein 6.5, Albumin 3.4, Globulin 3.1, Albumin/Globulin Ratio 1.1, Blood Type O POSITIVE, Antibody Screen NEGATIVE Imaging Radiology Impression Ankle X-Ray 04/05/24 18:55 IMPRESSION: Severe diffuse osteopenia of uncertain etiology. No acute fracture or dislocation Electronically Signed: Tevin Braun MD at 20:13 EST , Hip/Pelvis X-Ray 04/05/24 18:55 IMPRESSION: Deformity of the left hip possibly posttraumatic. CT would be helpful for further evaluation if strong clinical suspicion for acute fracture . Electronically Signed: Tevin Braun MD at 20:10 EST , Chest X-Ray 04/05/24 20:26 IMPRESSION: Probable right middle lobe atelectasis. Lateral view would be useful for further assessment Electronically Signed: Tevin Braun MD at 20:51 EST , Lower Extremity CT 04/05/24 20:43 IMPRESSION: Acute impacted comminuted impacted intertrochanteric fracture. Electronically Signed: Tevin Braun MD at 21:11 EST , Assessment & Plan Assessment/Plan (1) Fracture, intertrochanteric, left femur: QUALIFIERS: Encounter type: initial encounter Fracture alignment: displaced Fracture type: closed Qualified Code(s): S72.142A - Displaced intertrochanteric fracture of left femur, initial encounter for closed fracture Documented by User: Dr. Jian Lucas MD 04/06/24 13:04 HPI Consult Data Date of Consult: 04/06/24 HPI Narrative HPI Narrative: TAVO SALAZAR, is a 69 M who presents w/ PMHx: RADHA not using PAP therapy, Former, tobacco use, Obesity, BPH, Chronic neuropathy/sciatica with spinal stenosis, GERD who presents to the [facility] ED on 04/05/24 with history of chronic issues with paresthesias to the lumbar back rating down his legs unfortunately sometimes causing his legs to buckle and unfortunately on day of presentation he was in the restroom and experienced the same symptoms causing him to fall onto his left hip with unclear trauma to the head with immediate pain following as well as to the left ankle prompting to immediately call EMS as he was unable to get up and crying out for pain. I was consulted for left hip intertrochanteric fracture. I saw the patient in 306 this morning. Patient has pain and tenderness around the left hip. He also complains of some pain around the left ankle. He has had right ankle surgery many decades ago. Prior to the injury he was able to walk with a cane. He has severe balance issues which he attributes to his spinal pathology. He occasionally uses a walker. He had a pelvic fracture in the past and also had bone graft taken from his right iliac crest for likely has foot and ankle surgery many years ago. [facility] Medical History RADHA (obstructive sleep apnea) Former tobacco use BPH (benign prostatic hyperplasia) Obesity GERD (gastroesophageal reflux disease) Lumbar back pain with radiculopathy affecting lower extremity History of pelvic fracture Hernia Arthritis Spinal stenosis of lumbar region Home Medications ?Medication ?Instructions ?Recorded ?Last Taken ?Type famotidine 40 mg tablet 40 mg PO DAILY stomach 04/05/24 Unknown History finasteride 5 mg tablet 5 mg PO DAILY prostate 04/05/24 Unknown History gabapentin 600 mg tablet 600 mg PO TID Pain 04/05/24 Unknown History meloxicam 15 mg tablet 15 mg PO DAILY Pain 04/05/24 Unknown History tamsulosin 0.4 mg capsule 0.4 mg PO DAILY Bph 04/05/24 Unknown History tramadol 50 mg tablet 50 mg PO TID pain 04/05/24 Unknown History Allergy/AdvReac Type Severity Reaction Status Date / Time No Known Allergies Allergy Verified 04/05/24 17:52 Family History Mother Kidney disease Father Heart disease CAD (coronary artery disease) Hypertension Surgical History History of bilateral inguinal hernia repair History of ankle surgery S/P foot surgery, right Social History household members: spouse Smoking Status: Former smoker Tobacco: How many years used: 3 how long ago did patient quit smoking: Smoked in the 1980s x 3 years < 1/4 ppd. alcohol intake: never substance use type: does not use Physical Exam Extremity Extremity Narrative: Left hip pain, leg is shorted with external rotation. Distal neurovascular exam is intact. Mild tenderness along the left ankle but able to dorsiflex and plantarflex with minimal pain. Lab / Micro Data 04/06/24 06:35 04/06/24 06:35 Assessment & Plan Assessment/Plan (1) Fracture, intertrochanteric, left femur: QUALIFIERS: Encounter type: initial encounter Fracture alignment: displaced Fracture type: closed Qualified Code(s): S72.142A - Displaced intertrochanteric fracture of left femur, initial encounter for closed fracture PLAN: Plan I evaluated the x-rays done in the ER last night. I also looked through the CT of the pelvis and hip done last night. These show comminuted fracture of the left intertrochanteric femur. No obvious fracture on the ankle on the left side. I explained to the patient the imaging findings. I went through different treatment options. Surgical treatment would allow earliest possibility of return to ambulation with reduced risk of recumbency complications. I recommend left hip ORIF with cephalomedullary nailing. All risk benefits and alternatives were discussed in detail. The risks include but are not limited to infection, bleeding, hematoma formation, need for further surgery, injury to nerves and vessels, shortening, limb length discrepancy, persistent limp, persistent pain, recurrent falls, hardware failure, need for hip replacement, need for further surgery, RADHA implant fracture, DVT, pulm embolism, cardiopulmonary event. Patient understands and agrees to proceed with surgery. Consent was signed. Charges/Coding Visit Charges Inpatient E&M: 36320 Init Hosp L3
--- NOTE | 2024-04-06 12:54 | PRE.ANES_ITS ---
ASA Classification* ASA Classification ASA Classification: 3 Assessment & Plan Anesthesia* Anesthesia Assessment Anesthesia Assessment: Discussed sedation and/or anesthesia options, risks, benefits, and alternatives with patient/parents/legal guardian/POA. Questions invited. The patient/parents/legal guardian/POA seems to understand and agrees to proceed with anesthesia plan. Reviewed the physical assessment, medical history, allergy history and patient home medications list prior to surgery/procedure/anesthetic and documented any changes. Performed airway and anesthesia risk assessments. Anesthesia Type Anesthesia Type: General History Source History Obtained from:: Patient and Chart Anesthesia Focused Assessment* Temperature: 97.8 F Pulse Rate: 103 Blood Pressure: 136/81 Respiratory Rate: 18 Pulse Ox: 97 Oxygen Delivery Method: Room Air Airway Assessment Mouth opens: >3 cm Mallampati Score: III Teeth Condition: Missing (Multiple missing teeth) and Partial Neck Range of motion (ROM): Limited ROM (Slight decrease in extension.) Pertinent Findings EKG Pertinent Findings:: April 05, 2024. Sinus tachycardia [address] depression probably normal Focused Labs Anesthesia Preop lab: CBC WBC 7.2 K/mm3 (4.4-11.0) 04/06/24 06:35 RBC 3.84 M/mm3 (4.6-6.2) L 04/06/24 06:35 Hgb 12.7 g/dL (13.0-16.5) L 04/06/24 06:35 Hct 37.3 % (40-54) L 04/06/24 06:35 Plt Count 127 K/mm3 (150-450) L 04/06/24 06:35 CHEMISTRY Potassium 3.8 mmol/L (3.5-5.1) 04/06/24 06:35 Sodium 139 mmol/L (136-145) 04/06/24 06:35 BUN 20 mg/dL (7-18) H 04/06/24 06:35 Creatinine 0.64 mg/dL (0.70-1.30) L 04/06/24 06:35 Glucose 142 mg/dL (74-106) H 04/06/24 06:35 COAG Pre-Assessment Diagnosis/Proposed Procedure Planned Operative Procedure(s): Gamma nail left hip Anesthesia History 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 When Was Last Pacemaker Check QUESTION #4 FULL TEXT: You/Your Family Experience fever (hyperthermia) with Anesthesia Last Oral Intake Last Oral intake: Last Oral Intake NPO since Meds taken in AM with sips of water? Meds patient instructed to take am of surgery Any additional information?: Yes NPO since: 00:00 Meds taken in AM with sips of water?: Yes PONV PONV - technology lab teacher: PONV - technology lab teacher Female HX of Motion Sickness HX of N/V After Surgery Non-Smoker Duration of Surgery greater than 60 minutes Number of Risk Factors PONV Score Height & Weight Height & Weight: Anesthesia: Height & Weight Height 6 ft 3 in 04/06/24 01:20 Weight: 120.2 kg 04/06/24 06:00 Body Mass Index (BMI) 32.9 04/06/24 06:00 Respiratory Assessment Respiratory Assessment - technology lab teacher: Respiratory Tract Infection Hx - technology lab teacher Hx Respiratory Tract Infection No 04/05/24 23:00 STOP Sleep Apnea STOP Sleep Apnea - technology lab teacher: STOP Sleep Apnea - technology lab teacher Hx Hypertension No 04/05/24 22:56 Hx Sleep Apnea Yes 04/05/24 22:56 CPAP No 04/05/24 22:56 BIPAP No 04/05/24 22:56 Do you snore loudly (louder than talking or can be heard Do you often feel tired/ fatigued/ sleepy during daytime? Has anyone observed you stop breathing during sleep? STOP Results Positive 04/05/24 22:56 QUESTION #5 FULL TEXT : Do you snore loudly (louder than talking or can be heard through closed doors)? Tobacco Use History Tobacco Use History - technology lab teacher: Tobacco Use History - technology lab teacher Tobacco Use Smoking Status Former smoker 04/05/24 23:17 Hx Tobacco Use No 04/05/24 22:56 Years Smoking Packs Smoked per Day Smoking Cessation Date was No - quit smoking greater 04/05/24 22:56 within the last 15 years than 15 years ago Hx Smoking Cessation Date Hx Smoking Cessation Counseling Hematologic Medial History Hematologic Hx - technology lab teacher: Hematologic Medical Hx - chemical processor Hx of Blood Transfusion Yes 04/05/24 22:56 Hx of Transfusion in last 3 No 04/05/24 22:56 Months Date of Last Transfusion (if within last 3 months) Ever experience any problems No 04/05/24 22:56 with transfusion(s)? Specify any problems Hx of Preganancy in last 3 N/A 04/05/24 22:56 Months Nurse Filling Out Transfusion DREDICK 04/05/24 22:56 & Questions: Date: 04/05/24 04/05/24 22:56 Time: 22:57 04/05/24 22:56 Patient unable to answer at this time (ie. confused, unrespo /Reproduction History /Reproductive History - technology lab teacher: /Reproductive Hx- technology lab teacher Hx Now No 04/05/24 23:00 Gestational Age (in weeks): EDC: Hx Hx Para Hx Section SAB No 04/05/24 23:00 Active Medications Active Medications: Current Medications Generic Name Dose Route Start Last Admin Trade Name Freq PRN Reason Stop Dose Admin Acetaminophen 650 mg 04/05/24 22:48 04/06/24 04:58 Acetaminophen 325 Mg Tablet PO 650 mg Q4H PRN PRN Administration Fever, pain 1-10 Al Hydroxide/Mg Hydroxide 30 ml 04/05/24 22:48 Mag Hydrox/Al Hydrox/Simeth 30 Ml Udc PO Q6H PRN PRN Gastric Burning Albuterol Sulfate 2.5 mg 04/05/24 22:48 Albuterol 2.5 Mg/3 Ml Vial.Neb. INHALATION Q2H PRN PRN Dyspnea, wheezing Famotidine 40 mg 04/06/24 10:00 04/06/24 08:10 Famotidine 20 Mg Tablet PO Not Given DAILY SINA Finasteride 5 mg 04/06/24 10:00 04/06/24 08:11 Finasteride 5 Mg Tablet PO Not Given DAILY SINA Gabapentin 600 mg 04/05/24 22:48 04/06/24 04:59 Gabapentin 600 Mg Tablet PO 600 mg TID SINA Administration Guaifenesin 20 ml 04/05/24 22:48 Guaifenesin 10 Ml Udc (200mg/10ml) PO Q4H PRN PRN COUGH Hydralazine HCl 10 mg 04/05/24 22:48 Hydralazine 20 Mg/Ml Vial IV Q4H PRN PRN SBP > 160 Protocol Sodium Chloride 500 mls @ 15 mls/hr 04/05/24 22:50 IV .[id number] PRN Saline Flush Sodium Chloride 500 mls @ 15 mls/hr 04/05/24 22:50 IV .[id number] PRN Additional IVPB Infusion Lactated Ringer's 1,000 mls @ 15 mls/hr 04/06/24 12:15 04/06/24 12:13 IV 04/12/24 01:34 15 mls/hr .Q48H SINA Administration Protocol Influenza Virus Vaccine 180 mcg 04/07/24 10:00 Flu Vaccine High Dose Tv 24-25 180 Mcg/0.5 Ml Syringe IM 04/07/24 10:01 .ONCE ONE Melatonin 3 mg 04/05/24 22:48 Melatonin 3 Mg Tablet PO QHS PRN PRN INSOMNIA Morphine Sulfate 2 - 4 mg 04/05/24 22:48 04/06/24 11:10 Morphine 4 Mg/Ml Syringe IV 4 mg Q2H PRN PRN Administration MODSEVPAIN Nutritional Formula (Lactose Free) 120 ml 04/06/24 08:00 04/06/24 10:02 Ensure Plus High Protein 120 Ml Liquid PO Not Given TIDCM [facility] Ondansetron HCl 4 mg 04/05/24 22:48 04/06/24 00:49 Ondansetron 4 Mg/2 Ml Vial IV 4 mg Q8H PRN PRN Administration NAUSEA/VOMITING Oxycodone HCl 5 - 10 mg 04/05/24 22:48 04/06/24 04:59 Oxycodone 5 Mg Tablet PO 10 mg Q4H PRN PRN Administration Pain Score 4-10 Prochlorperazine Edisylate 5 mg 04/05/24 22:48 Prochlorperazine 10 Mg/2 Ml Vial IV Q4H PRN PRN Breakthrough Nausea/Vomiting Senna/Docusate Sodium 2 tablet 04/05/24 22:48 04/06/24 08:11 Senna/Docusate Sodium 1 Tablet PO Not Given BID SINA Sodium Chloride 10 - 40 ml 04/05/24 22:50 04/06/24 11:10 0.9% Saline Lock 10 Ml Syringe IV 10 ml UD PRN Administration SALINE FLUSH Tamsulosin HCl 0.4 mg 04/06/24 10:00 04/06/24 08:10 Tamsulosin Hcl 0.4 Mg Capsule PO Not Given DAILY [facility]INA COUNTS INCLUDE 234 BEDS AT THE [facility] Medical History RADHA (obstructive sleep apnea) Former tobacco use BPH (benign prostatic hyperplasia) Obesity GERD (gastroesophageal reflux disease) Lumbar back pain with radiculopathy affecting lower extremity History of pelvic fracture Hernia Arthritis Spinal stenosis of lumbar region Home Medications ?Medication ?Instructions ?Recorded ?Last Taken ?Type famotidine 40 mg tablet 40 mg PO DAILY stomach 04/05/24 Unknown History finasteride 5 mg tablet 5 mg PO DAILY prostate 04/05/24 Unknown History gabapentin 600 mg tablet 600 mg PO TID Pain 04/05/24 Unknown History meloxicam 15 mg tablet 15 mg PO DAILY Pain 04/05/24 Unknown History tamsulosin 0.4 mg capsule 0.4 mg PO DAILY Bph 04/05/24 Unknown History tramadol 50 mg tablet 50 mg PO TID pain 04/05/24 Unknown History Allergy/AdvReac Type Severity Reaction Status Date / Time No Known Allergies Allergy Verified 04/05/24 17:52 Family History Mother Kidney disease Father Heart disease CAD (coronary artery disease) Hypertension Surgical History History of bilateral inguinal hernia repair History of ankle surgery S/P foot surgery, right Social History household members: spouse Smoking Status: Former smoker Tobacco: How many years used: 3 how long ago did patient quit smoking: Smoked in the 1980s x 3 years < 1/4 ppd. alcohol intake: never substance use type: does not use Review of Systems (Anesthesia) ROS Narrative System reviewed and no additional complaints, except as documented.
--- NOTE | 2024-04-06 12:54 | CASEMGMT ---
Addendum entered by Stephanie Jensen 04/06/24 14:30: Pt remains out of room. Original Note: RN CM NOTE: RN CM to room to complete assessment. Pt is out of room @ OR. RN CM to attempt at a later time. Tamir ELIASN RN CM
[2024-04-06] MEDS: Cefazolin 3 GM in Syringe 1 EACH IV (13:24)
[2024-04-06] MEDS: TXA 1000mg in NS100 100ml (IVPB at Incision) 660 MG IV (13:29)
--- NOTE | 2024-04-06 13:30 | RAD_ITS ---
STUDY: X-RAY - PELVIS AND LEFT HIP REASON FOR EXAM: Male, 69 years old. GAMMA NAIL TECHNIQUE: 21 C-arm views of the pelvis and hip. 161 seconds fluoroscopy time. COMPARISON: None. FINDINGS: This sequence of images shows ORIF of the left proximal femoral fracture. Correlate with procedure note. Electronically Signed: Rafita Perdue MD at 22:45 EST , RAD/Hip Min 2 Views (Portable) IMPRESSION: undefined
--- NOTE | 2024-04-06 15:12 | PCM.OPRPT ---
Operative Report (Standard) Operative Information Surgery/Procedure Performed: Left hip ORIF of intertrochanteric fracture, cephalomedullary gamma nailing Surgeon: Jian Lucas Date of Procedure: 04/06/24 Procedure Start Time: 14:00 Procedure Stop Time: 15:09 Pre-Operative Diagnosis: Left hip intertrochanteric femoral fracture Post-Operative Diagnosis: Same Select all DRAINS/GRAFTS/IMPLANTS that apply: Implanted device Implanted device details: Magazine short gamma nail Type of Anesthesia: General Estimated Blood Loss: 50 cc Specimen collected: No Description of surgery: Operative Report Pre-operative Diagnosis: Left intertrochanteric Femur Fracture Post-operative Diagnosis: Left intertrochanteric Femur Fracture Procedure(s) Performed: Left femur Cephalmedullary Nailing CPT 96972 Surgeon: Dr. Jian Lucas MD New Accounts Banking Representative: None Estimated Blood Loss: 50 ml Anesthesia: General Drains: None Specimens: None Implants: Edel Gamma3 Trochanteric Nail 11 x 180 mm, 125 degree, 105 mm lag screw Complications: None Condition: stable Indications: 69-year-old gentleman had a ground-level fall and sustained a left intertrochanteric femur Fracture. We discussed the benefits and risks of the procedure including but not limited toinfection, bleeding, injury to nerves and vessels, limb length discrepancy, nonunion, malunion, hardware failure, bonnie-implant fracture, hip and knee stiffness, persistent pain, difficulty to ambulate, DVT, pulmonary embolism, cardiopulmonary event, need for further surgeries. The patient concurred with the proposed plan, giving informed consent. Procedure Details: The patient was seen in the pre-operative preparation area. The site of surgery was verbally confirmed and marked by the surgical team. The patient was properly identified by the unique identifiers and was then at that time transported to the operative theater by [facility]. A Time Out was held and the above information confirmed. Both lower extremities were placed on the fracture table with the contralateral extremity extended down to allow C-arm to come in. Close reduction was performed in AP lateral views showed good reduction of intertrochanteric fracture. Operative area was prepped and draped in a sterile fashion. Final timeout was performed. With the help of C-arm incision was marked. A 4 cm Incision was made proximal to the greater trochanter. An appropriate greater trochanter starting point was found using the curved awl under AP and lateral fluoroscopy. The guide wire was then passed to the metadiaphyseal region of the femur through the cannulated awl. The opening reamer was then drilled into the metadiaphysis under fluoro. 180 mm short Gamma Nail with 125 degree angle was then placed into the intramedullary canal of the femur and placement was verified with fluoroscopy and advanced to an appropriate level to allow placement of the lag screw. Guidewire was removed. We then drilled the wire for the lag screw up the neck of the femur under fluoroscopic guidance. AP and lateral x-rays showed good positioning of the wire through the neck into the head with good tip apex distance. The wire was then measured. Cannulated drill was used to drill a channel for the lag screw and a 105 mm lag screw was placed up the neck of the femur. A distal static interlocking screw 40 mm was placed with the help of the C-arm using the jig. Jig was then removed. Final fluorscopic images were then taken and the placement of the intramedullary device and fracture was deemed appropriate. The wounds were irrigated copiously with sterile solution as well as Irrisept. The deep fascia was closed with 0 vicryl suture. The subcutaneous layer was closed with 2-0 vicryl suture. Zainab were used to close the skin. Gauze with Tegaderm dressing was used for all the incisions. The patient was then awaken, extubated and taken to the PACU. I was present and scrubbed for the entire procedure. Postoperative plan: Patient will be WBAT. Recommend PT/OT evaluation Pain Control F/u Outpatient in 2 weeks Surgical Findings: See operative note Tension Machine Operator compression molding machine operator: Yes Refrigerator Crater: ELIAS COXcarpet measurer Tasks completed by sampler first: Closing, Implanting device and Retracting Complications Complications: No Procedures Musculoskeletal [id number]: Other Procedure See Report
--- NOTE | 2024-04-06 15:23 | PCM.POST.ANE ---
Anesthesia: Postop Eval I Current Vital Signs Temperature: 98 F Pulse Rate: 87 Blood Pressure: 129/73 Respiratory Rate: 18 Pulse Ox: 93 Assessment Airway patent: Yes Spontaneous unlabored respirations: Yes nausea: No Vomiting: No Anesthesia Complication: No Fluid Hydration Crystalloid volume administer (ml): 800 Total IV fluid infused: 800 Progress Note Anesthesia document: Postop Eval 1 completed: Yes
--- NOTE | 2024-04-06 15:52 | SUR.PHASEI ---
PATIENT CONTINUES TO YELL OUT IN PAIN, STATES HIS ABDOMEN HURTS, WHEN ASKED TO DESCRIBE IT, HE SAYS IT'S NAUSEA, THEN STATES IT'S LIKE CRAMPY PAIN MOSTLY TO RIGHT LOWER QUADRANT. ABDOMEN SOFT, MILD TENDERNESS. DID HAVE SOME DRY HEAVES ON PACU ARRIVAL, 12.5 MG BENADRYL & 10 MG REGLAN GIVEN AFTER WHICH HE HAD NO MORE DRY HEAVES, BUT CONTINUES TO C/O RLQ PAIN. PATIENT STATES UNKNOWN WHEN HE HAD HIS LAST BM. VEHEMENTLY DENIES ANY LEFT HIP PAIN EXCEPT w/ GROSS MOVEMENT. COMFORT MEASURES, REPOSITIONING ALL ATTEMPTED. BOTH DRS. CORONADO AND BONY AT BEDSIDE WHO EVALUATED, INSTRUCTED TO CONTINUE CURRENT ORDERS.
[2024-04-06] MEDS: Ketorolac 15 MG/ML Vial IV (16:07)
--- NOTE | 2024-04-06 16:19 | POSTOPAN2_ITS ---
Anesthesia Postop Eval I Sum Postop Eval Completion status Anesthesia document: Postop Eval 1 completed: Yes Anesthesia Postop Eval I Summary Anesthesia Postop Eval I Summary: Anesthesia Postop Eval I: Assessment Summary Airway patent Yes 04/06/24 15:23 TRAINING [email or web address] Spontaneous unlabored Yes 04/06/24 15:23 TRAINING [email or web address] respirations Mental status nausea No 04/06/24 15:23 TRAINING [email or web address] Vomiting No 04/06/24 15:23 TRAINING [email or web address].[email or web address] Anesthesia Postop Eval I: Fluid Summary Crystalloid volume administer 800 04/06/24 15:23 TRAINING [email or web address].CSIR (ml) Colloids volume administered ( ml) Blood Product volume administered (ml) Total IV fluid infused 800 04/06/24 15:23 TRAINING [email or web address] Anesthesia Postop Eval I: Summary Notes Anesthesia Complication No 04/06/24 15:23 TRAINING [email or web address] Anesthesia Complication Comment: Post-operative progress note Anesthesia: Postop Eval II Evaluation Mental status: Awake Pain Level: 4 nausea: No Vomiting: No Progress Note Post-operative progress note: Patient complaining of right sided pain. RUQ by palpation by DR Lucas. He has informed the hospitalist taking care of the patient. Complications Anesthesia Complication: No
--- NOTE | 2024-04-06 16:19 | PCM.POSTANE2 ---
Anesthesia Postop Eval I Sum Postop Eval Completion status Anesthesia document: Postop Eval 1 completed: Yes Anesthesia Postop Eval I Summary Anesthesia Postop Eval I Summary: Anesthesia Postop Eval I: Assessment Summary Airway patent Yes 04/06/24 15:23 SENIOR SQL [email or web address] Spontaneous unlabored Yes 04/06/24 15:23 SENIOR SQL [email or web address] respirations Mental status nausea No 04/06/24 15:23 SENIOR SQL [email or web address] Vomiting No 04/06/24 15:23 SENIOR [email or web address] Anesthesia Postop Eval I: Fluid Summary Crystalloid volume administer 800 04/06/24 15:23 SENIOR SQL [email or web address] (ml) Colloids volume administered ( ml) Blood Product volume administered (ml) Total IV fluid infused 800 04/06/24 15:23 SENIOR [email or web address] Anesthesia Postop Eval I: Summary Notes Anesthesia Complication No 04/06/24 15:23 SENIOR [email or web address] Anesthesia Complication Comment: Post-operative progress note Anesthesia: Postop Eval II Evaluation Mental status: Awake Pain Level: 4 nausea: No Vomiting: No Progress Note Post-operative progress note: Patient complaining of right sided pain. RUQ by palpation by DR Lucas. He has informed the hospitalist taking care of the patient. Complications Anesthesia Complication: No
[2024-04-06] MEDS: Calcium Carbonate 500 MG Tablet PO (18:37)
[2024-04-06] MEDS: Rivaroxaban 10 MG Tablet PO (18:37)
[2024-04-06] MEDS: Senna/Docusate Sodium 1 Tablet 2 TABLET PO (20:54)
[2024-04-07 00:56] VITALS: BP 109/72; PULSE 112; RESP 16; TEMP 37.6; O2SAT 93
[2024-04-07 04:50] VITALS: BP 102/69; PULSE 106; RESP 16; TEMP 36.9; O2SAT 95
[2024-04-07] MEDS: Ketorolac 15 MG/ML Vial IV ×2 (05:02→14:04)
[2024-04-07] MEDS: Gabapentin 600 MG Tablet PO ×3 (05:02→21:25)
[2024-04-07 05:48] VITALS: BMI 33.4
[2024-04-07 06:08] LABS: Absolute Lymphocyte Count 1.28 X10^3/uL (0.83-4.51); Absolute Neutrophil Count 5.7 X10^3/uL (2.0-7.7); Basophil# 0.01 X10^3/uL; Basophil% 0.1 % (0-1); Hematocrit 36.1 % (40-54); Hemoglobin 11.9 g/dL (13.0-16.5); Lymphocyte # 1.28 X10^3/ul (0.83-4.51); Lymphocyte % 16.4 % (19-41); Mean Corpuscular Hgb 32.6 pg (27.0-32.0); Mean Corpuscular Volume 98.9 fL (80-94); Mean Platelet Vol. 10.9 fl (6.2-12.0); Monocyte# 0.74 X10^3/uL; Monocyte% 9.5 % (0-10); NRBC Flagged by Analyzer 0 % (0-5); Neutrophil # 5.72 X10^3/uL (2.7-7.7); Neutrophil % 73.1 % (47-70); Platelet Count 122 K/mm3 (150-450); RBC Distribution Width CV 13.7 % (11.6-14.6); RBC Distribution Width SD 50.2 fl (35.1-43.9); Red Blood Count 3.65 M/mm3 (4.6-6.2); White Blood Count 7.8 K/mm3 (4.4-11.0)
[2024-04-07 06:24] LABS: Anion Gap 4 (5-15); BUN 23 mg/dL (7-18); BUN/Creat Ratio 28.5 RATIO (10-20); Calcium,Total 8.6 mg/dL (8.5-10.1); Chloride 105 mmol/L (98-107); Creatinine, Serum 0.81 mg/dL (0.70-1.30); EST Glomerular Filtration Rate 101 mL/min (>60); Est Glom Filt Rate - Afr Amer 122 mL/min (>60); Estimated Creatinine Clearance 121.08 ml/min; Glucose 142 mg/dL (74-106); Magnesium 1.9 mg/dL (1.6-2.6); Potassium 4.1 mmol/L (3.5-5.1); Sodium Level 135 mmol/L (136-145)
--- NOTE | 2024-04-07 07:25 | PCM.PN.HOSP ---
Reason for Visit Reason for Visit: Diagnoses Fracture of unspecified part of neck of left femur, initial encounter for closed fracture (04/05/24) Displaced intertrochanteric fracture of left femur, initial encounter for closed fracture (04/05/24) Subjective Subjective patient underwent cephalomedullary gamma nailing by Dr. Lucas on 04/06/2024. Objective Data Objective Data Vital Signs: Vital Signs Temp Pulse Resp BP Pulse Ox O2 Del Method O2 Flow Rate 98.5 F 106 H 16 102/69 95 Room Air 96 04/07/24 04:50 04/07/24 04:50 04/07/24 04:50 04/07/24 04:50 04/07/24 04:50 04/07/24 04:50 04/06/24 12:57 Oxygen Flow Rate (L/min) 96 Oxygen Delivery Method Room Air Weight: 121.9 kg Body Mass Index (BMI) 33.4 Intake & Output: Intake and Output for Last 24 Hours 04/05/24 04/06/24 04/07/24 23:59 23:59 23:59 Intake Total 0 / 300 440 / 590 150 / 150 Output Total 275 / 275 450 / 525 75 / 75 Balance -275 / 25 - 75 / 75 Lab / Micro Data 04/07/24 05:29 04/07/24 05:29 Labs: Laboratory Results - last 24 hr 04/06/24 06:35: Sodium 139, Potassium 3.8, Chloride 107, Carbon Dioxide 27.0, Anion Gap 5, BUN 20 H, Creatinine 0.64 L, Estim Creat Clear Calc 121.76, Est GFR (MDRD) Af Amer 158, Est GFR (MDRD) Non-Af 131, BUN/Creatinine Ratio 31.1 H, Glucose 142 H, Hemoglobin A1c 5.6, Calcium 8.8, Total Bilirubin 2.10 H, AST 20, ALT 18, Alkaline Phosphatase 64, Total Protein 6.5, Albumin 3.4, Globulin 3.1, Albumin/Globulin Ratio 1.1, Blood Type O POSITIVE, Antibody Screen NEGATIVE 04/07/24 05:29: WBC 7.8, RBC 3.65 L, Hgb 11.9 L, Hct 36.1 L, MCV 98.9 H, MCH 32.6 H, MCHC 33.0, RDW Std Deviation 50.2 H, RDW Coeff of Roseann 13.7, Plt Count 122 L, MPV 10.9, Immature Gran % (Auto) 0.900, Neut % (Auto) 73.1 H, Lymph % (Auto) 16.4 L, Whitfield % (Auto) 9.5, Eos % (Auto) 0.0, Baso % (Auto) 0.1, Absolute Neuts (auto) 5.7, Absolute Lymphs (auto) 1.28, Nucleated RBC % 0, Sodium 135 L, Potassium 4.1, Chloride 105, Carbon Dioxide 26.0, Anion Gap 4 L, BUN 23 H, Creatinine 0.81, Estim Creat Clear Calc 121.08, Est GFR (MDRD) Af Amer 122, Est GFR (MDRD) Non-Af 101, BUN/Creatinine Ratio 28.5 H, Glucose 142 H, Calcium 8.6, Phosphorus 3.0, Magnesium 1.9 Radiography Diagnostic Testing: Radiology Impression Hip X-Ray 04/06/24 13:30 IMPRESSION: undefined Physical Exam Narrative GENERAL: cooperative HEENT: Atraumatic; normocephalic EYES; Anicteric, Normal Conjunctiva NECK; supple, normal thyroid, RESPIRATORY: Diminished to auscultation CARDIOVASCULAR: Regular S1 S2, GI: soft, normoactive bowel sounds, : No Renal angle tenderness; EXTREMITIES: No edema, no clubbing, MUSCULOSKELETAL: no muscle wasting NEURO: Awake; no lateralizing signs. SKIN: No Rash PSYCH; Flat affect Assessment & Plan Assessment/Plan (1) Closed left hip fracture: QUALIFIERS: Encounter type: initial encounter Qualified Code(s): S72.002A - Fracture of unspecified part of neck of left femur, initial encounter for closed fracture PLAN: Plan Patient is a 69-year-old gentleman who presented to the emergency department following a fall imaging studies demonstrated left acutely impacted comminuted intertrochanteric fracture. Admitted to regular nursing floor with consultation placed orthopedic surgery 1. Fall with left acutely impacted comminuted intertrochanteric fracture. -Admitted to regular nursing floor treatment initiated with pain meds immobilization with consultation placed to orthopedic surgery. Patient preop assessment as documented by admitting physician ? 04/07/2024 patient underwent cephalomedullary gamma nailing by Dr. Lucas on 04/06/2024. 2.Elevated blood pressure on admission ? Patient does not have history of hypertension. This is reactive to. Do expect improvement seen blood pressure once pain is adequately controlled 3. Peripheral neuropathy ? Patient is a gabapentin 4. GERD ? On famotidine 5. BPH with lower urinary obstructive symptoms - Patient treated with tamsulosin and finasteride continued 7. Mild thrombocytopenia -Ordered CBC with differential for monitoring 8. Class I obesity with BMI of 33.1 ? Complicating care weight loss advised 9. Obstructive sleep apnea ? Consistent use of PAP therapy encouraged 10. Generalized osteoarthritis ? Patient is on meloxicam at home 11. DVT prophylaxis ? Bilateral SCDs for now with plans to initiate chemoprophylaxis following patient's surgery ? 04/07/2024 patient started on Xarelto for DVT prophylaxis following his surgical intervention Time spent in the patient's overall evaluation,decision-making process, review of diagnostic data, adjustment of management, discussion with other providers, nursing nursing and ancillary staff involved in patient's care documentation, 38 Minutes Charges/Coding Visit Charges Inpatient E&M: 95309 Subs Hosp L2
[2024-04-07 07:51] VITALS: O2SAT 95
[2024-04-07] MEDS: Acetaminophen 500 MG Tablet 1000 MG PO ×3 (08:57→21:27)
[2024-04-07] MEDS: Calcium Carbonate 500 MG Tablet PO (08:58)
[2024-04-07] MEDS: Ensure Plus High Protein 120 ML LIQUID PO (08:58)
[2024-04-07] MEDS: Finasteride 5 MG Tablet PO (08:59)
[2024-04-07] MEDS: Tamsulosin HCl 0.4 MG Capsule PO (08:59)
[2024-04-07] MEDS: Senna/Docusate Sodium 1 Tablet 2 TABLET PO ×2 (08:59→21:27)
[2024-04-07] MEDS: oxyCODONE 5 MG Tablet PO ×3 (09:03→21:26)
--- NOTE | 2024-04-07 09:14 | CASEMGMT ---
Discharge Planning A list of?SNF providers including quality and resource use data and consistent with the patient's preferred geographic region, medical needs, and insurance network was created in [employer] Guide.? This list was provided to the RN DAVID. Linh Austin, Discharge Planning Asst.
[2024-04-07] MEDS: Famotidine 20 MG Tablet 40 MG PO (10:00)
[2024-04-07] MEDS: FLU VACCINE **HIGH DOSE** TV 24-25 180 MCG/0.5 ML SYRINGE IM (10:31)
--- NOTE | 2024-04-07 10:50 | CASEMGMT ---
RN DAVID LAMINATION INSPECTOR DAVID?to room to meet with patient for initial transition planning/care coordination assessment. RN DAVID?introduced self and role at [facility]. Pt voices understanding and consents to assessment?at this time. Pt resting in bed in no distress at this time. @ bedside. Pt is A/O at this time and answers all questions appropriately. Care providers, pharmacy, and demographics verified/updated at this time. PCP: Dr Tubbs Specialists: none Preferred Pharmacy: [facility] Insurance: [facility], [facility] Prescription Benefit: yes LNOK: , Zaynab. Daughter, Brandy. Living Arrangements: Lives w/his in 2-story home w/bedroom and bathroom on 2nd floor. No bathroom on main floor. Indep @ home prior to fall/hip fracture. Transportation:Pt drives. does not drive. DME: States has the following DME: shower chair, grab bars, cane. Pt uses rollator for community distances. Pt will also use a scooter when in the stores, if available. Pt used to wear a PAP, but has not used it for years. HHC/SNF: No hx of either. Discussed discharge plan and questions answered. Pt and wish for pt to go to either [facility]CU or [facility], and decline wanting list of other SNF options at this time. PLAN: SNF vs RU Tamir MAGAÑA RN, CM
[2024-04-07 11:00] VITALS: PULSE 80; RESP 18; O2SAT 98
[2024-04-07] MEDS: Morphine 4 MG/ML Syringe IV (11:38)
[2024-04-07] MEDS: Ondansetron 4 MG/2 ML Vial IV (11:39)
[2024-04-07 12:00] VITALS: BP 126/67; PULSE 98; RESP 18; TEMP 36.7; O2SAT 94
--- NOTE | 2024-04-07 12:26 | CASEMGMT ---
Social Work- SW met with pt to discuss preferences at d/c. Pt would like TCU referral and declines list d/t knowing FOC. SW completed referral to TCU. Pt accepted and can admit tomorrow d/t bed availability. SW updated pt and physician. [facility] remains available to follow. JORDANA Paulson
--- NOTE | 2024-04-07 12:49 | PN.ORTHO_ITS ---
Subjective Subjective Seen with Dr. Lucas. POD 1 left hip ORIF of intertrochanteric fracture, cephalomedullary gamma nailing. His hip pain has been generally well managed with his pain being primarily in his back. He has a history of lumbar stenosis. Patient was sitting up in bed upon arrival. Says that his oxygen dropped below 90% and was put on 2 L nasal cannula. He is not having any shortness of breath or chest pain. Continues to have generalized abdominal pain and was nauseous this morning with 1 episode of emesis. He was given something for the nausea and feels that it has improved since the morning. He was seen by PT/OT where he was able to stand edge of bed however he was not able to take any steps with them due to the hip pain. Objective Data Objective Data Vital Signs: Vital Signs Temp Pulse Resp BP Pulse Ox O2 Del Method O2 Flow Rate 98.0 F 98 18 126/67 H 94 Nasal Cannula 2 04/07/24 12:00 04/07/24 12:00 04/07/24 12:00 04/07/24 12:00 04/07/24 12:00 04/07/24 12:00 04/07/24 12:00 Oxygen Flow Rate (L/min) 2 Oxygen Delivery Method Nasal Cannula Weight: 268 lb 11.896 oz Body Mass Index (BMI) 33.4 Intake & Output: Intake and Output for Last 24 Hours 04/05/24 04/06/24 04/07/24 23:59 23:59 23:59 Intake Total 0 / 300 440 / 590 150 / 150 Output Total 275 / 275 450 / 525 75 / 75 Balance -275 / 25 - 75 / 75 Lab / Micro Data 04/07/24 05:29 04/07/24 05:29 Labs: Laboratory Results - last 24 hr 04/07/24 05:29: WBC 7.8, RBC 3.65 L, Hgb 11.9 L, Hct 36.1 L, MCV 98.9 H, MCH 32.6 H, MCHC 33.0, RDW Std Deviation 50.2 H, RDW Coeff of Roseann 13.7, Plt Count 122 L, MPV 10.9, Immature Gran % (Auto) 0.900, Neut % (Auto) 73.1 H, Lymph % (Auto) 16.4 L, [place] % (Auto) 9.5, Eos % (Auto) 0.0, Baso % (Auto) 0.1, Absolute Neuts (auto) 5.7, Absolute Lymphs (auto) 1.28, Nucleated RBC % 0, Sodium 135 L, Potassium 4.1, Chloride 105, Carbon Dioxide 26.0, Anion Gap 4 L, BUN 23 H, Creatinine 0.81, Estim Creat Clear Calc 121.08, Est GFR (MDRD) Af Amer 122, Est GFR (MDRD) Non-Af 101, BUN/Creatinine Ratio 28.5 H, Glucose 142 H, Calcium 8.6, Phosphorus 3.0, Magnesium 1.9 Radiography Diagnostic Testing: Radiology Impression Hip X-Ray 04/06/24 13:30 IMPRESSION: undefined Physical Exam Narrative Neurological exam of the lower extremities shows 4 power of the left leg due to hip pain. He has good ankle ROM. Tegaderm and gauze intact over incisions, mild bloody discharge of lower incision. Sensations intact. Const alert, oriented x3 and no apparent distress Assessment & Plan Assessment/Plan (1) Status post hip surgery: PLAN: Plan POD 1. He is doing generally well postoperatively. Discussed the importance of walking with therapy, even if it hurts. He has been doing some in bed exercises, he should continue these. Plan to go the TCU tomorrow to continue therapy there. He is only Xarelto 10mg daily for DVT prophylaxis. Follow up in 2 weeks.
[2024-04-07] MEDS: proCHLORPERazine 10 MG/2 ML Vial 5 MG IV (16:19)
[2024-04-07] MEDS: Rivaroxaban 10 MG Tablet PO (16:19)
--- NOTE | 2024-04-07 18:30 | NURSING ---
offerredd to assist pt back to bed and pt declines at this time
[2024-04-07 21:13] VITALS: BP 132/68; PULSE 98; RESP 18; TEMP 37.1; O2SAT 96
[2024-04-08 03:15] VITALS: BP 128/62; PULSE 86; RESP 16; TEMP 36.6; O2SAT 95
[2024-04-08 05:25] VITALS: BP 136/78; PULSE 98; RESP 18; TEMP 37.2; O2SAT 95
[2024-04-08] MEDS: oxyCODONE 5 MG Tablet PO ×2 (05:31→12:27)
[2024-04-08] MEDS: Gabapentin 600 MG Tablet PO ×2 (05:32→14:27)
[2024-04-08] MEDS: Acetaminophen 500 MG Tablet 1000 MG PO ×2 (05:33→14:22)
[2024-04-08 06:00] VITALS: BMI 34.4
[2024-04-08 06:03] LABS: Absolute Lymphocyte Count 0.78 X10^3/uL (0.83-4.51); Absolute Neutrophil Count 5.9 X10^3/uL (2.0-7.7); Basophil# 0.01 X10^3/uL; Basophil% 0.1 % (0-1); Eosinophil# 0.04 X10^3/uL; Eosinophils% 0.5 % (0-5); Hematocrit 32.3 % (40-54); Hemoglobin 10.6 g/dL (13.0-16.5); Lymphocyte # 0.78 X10^3/ul (0.83-4.51); Lymphocyte % 10.6 % (19-41); Mean Corp Hgb Conc 32.8 g/dL (32-36); Mean Corpuscular Hgb 32.5 pg (27.0-32.0); Mean Corpuscular Volume 99.1 fL (80-94); Monocyte# 0.62 X10^3/uL; Monocyte% 8.4 % (0-10); NRBC Flagged by Analyzer 0 % (0-5); Neutrophil # 5.85 X10^3/uL (2.7-7.7); Neutrophil % 79.5 % (47-70); Platelet Count 110 K/mm3 (150-450); RBC Distribution Width CV 13.7 % (11.6-14.6); RBC Distribution Width SD 50.4 fl (35.1-43.9); Red Blood Count 3.26 M/mm3 (4.6-6.2); White Blood Count 7.4 K/mm3 (4.4-11.0)
[2024-04-08 06:30] VITALS: O2SAT 95
[2024-04-08 07:01] LABS: Anion Gap 4 (5-15); BUN 21 mg/dL (7-18); BUN/Creat Ratio 31.7 RATIO (10-20); Calcium,Total 8.3 mg/dL (8.5-10.1); Chloride 104 mmol/L (98-107); Creatinine, Serum 0.66 mg/dL (0.70-1.30); EST Glomerular Filtration Rate 127 mL/min (>60); Est Glom Filt Rate - Afr Amer 153 mL/min (>60); Estimated Creatinine Clearance 124.37 ml/min; Glucose 155 mg/dL (74-106); Sodium Level 136 mmol/L (136-145)
--- NOTE | 2024-04-08 08:03 | TREXTCAR_ITS ---
Diet Diet Order/Speech Therapy: 04/06/24 18:10 Diet: Regular - General Routine Orders/Code Status Code Status: Full Code Wound(s) Left Shoulder: Wound Type: Surgical Incision LEFT HIP, LATERAL: Wound Type: Surgical Incision Therapies Physical Therapy: Eval and Treat Occupational Therapy: Eval and Treat Problem/Diagnosis (1) Status post hip surgery: Status: Acute Code(s): Z98.890 - Other specified postprocedural states Plan Patient is a 69-year-old gentleman who presented to the emergency department following a fall imaging studies demonstrated left acutely impacted comminuted intertrochanteric fracture. Admitted to regular nursing floor with consultation placed orthopedic surgery 1. Fall with left acutely impacted comminuted intertrochanteric fracture. -Admitted to regular nursing floor treatment initiated with pain meds immobilization with consultation placed to orthopedic surgery. Patient preop assessment as documented by admitting physician ? 04/07/2024 patient underwent cephalomedullary gamma nailing by Dr. Lucas on 04/06/2024. 2.Elevated blood pressure on admission ? Patient does not have history of hypertension. This is reactive to. Do expect improvement seen blood pressure once pain is adequately controlled 3. Peripheral neuropathy ? Patient is a gabapentin 4. GERD ? On famotidine 5. BPH with lower urinary obstructive symptoms - Patient treated with tamsulosin and finasteride continued 7. Mild thrombocytopenia -Ordered CBC with differential for monitoring 8. Class I obesity with BMI of 33.1 ? Complicating care weight loss advised 9. Obstructive sleep apnea ? Consistent use of PAP therapy encouraged 10. Generalized osteoarthritis ? Patient is on meloxicam at home 11. DVT prophylaxis ? Bilateral SCDs for now with plans to initiate chemoprophylaxis following patient's surgery ? 04/07/2024 patient started on Xarelto for DVT prophylaxis following his surgical intervention Time spent in the patient's overall evaluation,decision-making process, review of diagnostic data, adjustment of management, discussion with other providers, nursing nursing and ancillary staff involved in patient's care documentation, 38 Minutes Allergies/Procedures Done in Hospital Allergies No Known Allergies Allergy (Verified 04/05/24 17:52) Type of Care/Length of Stay Estimated LOS: Convalescent Care Less Than 30 days Type of Care Needed: Skilled Rehab Potential: Good Prognosis: Good Additional Orders/Day of Discharge Day of Discharge: 04/08/24 Dietary and Speech Recommendations Dietitian Recommendations/Changes: Recommend Regular diet when medical able to optimize oral intakes. Recommend 120mL ensure plus high protein TID with medpass to provide supplemental energy Discharge Plan Admission Admit Date/Time: 04/05/24 21:59 Attending Provider: Karel Perez Primary Care Provider: Jalil Tubbs Consulting Providers: Jian Lucas; Beatriz Hsieh Discharge Orders/Prescriptions Prescriptions: New albuterol sulfate 2.5 mg /3 mL (0.083 %) Solution For Nebulization 2.5 mg inhalation Q2H PRN PRN (Reason: Dyspnea, wheezing) Qty: 0 0RF melatonin 3 mg Tablet 3 mg PO QHS PRN PRN (Reason: Insomnia) Qty: 0 0RF acetaminophen 500 mg Tablet 1,000 mg PO Q8 Qty: 0 0RF calcium carbonate 200 mg calcium (500 mg) Tablet,Chewable 500 mg PO TIDCM Qty: 0 0RF alum-mag hydroxide-simeth [Mag-Al Plus Extra Strength] 400-400-40 mg/5 mL Suspension 30 ml PO Q6H PRN PRN (Reason: Gastric Burning) Qty: 0 0RF Ensure Plus High Protein 0.08 gram-1.5 kcal/mL Liquid 120 ml PO TIDCM Qty: 0 0RF sennosides-docusate sodium [Stimulant Laxative Plus] 8.6-50 mg Tablet 2 tab PO BID Qty: 0 0RF oxycodone 5 mg Tablet 5 - 10 mg PO Q4H PRN PRN (Reason: Pain Score 4-10) Qty: 0 0RF Continued gabapentin 600 mg tablet 600 mg PO TID famotidine 40 mg tablet 40 mg PO DAILY finasteride 5 mg tablet 5 mg PO DAILY meloxicam 15 mg tablet 15 mg PO DAILY tramadol 50 mg tablet 50 mg PO TID tamsulosin 0.4 mg capsule 0.4 mg PO DAILY Referrals / Follow Up: Jian Lucas MD [Med Staff - Active Staff] - Within 2 Weeks Jalil Tubbs MD [Primary Care Provider] - Within 2 Weeks Disposition Disposition (needs filled in before D/C Order can be placed): [facility]
[2024-04-08 08:07] VITALS: BP 137/75; PULSE 98; RESP 18; TEMP 536.6; TEMP 997.8; O2SAT 94
--- NOTE | 2024-04-08 08:13 | DS.PCM_ITS ---
Providers Date of Admission: 04/05/24 Date of Discharge: 04/08/24 Primary Care Physician: Dr. Jalil Tubbs MD Consultations 04/05/24 22:48 Consult: Orthopedics Routine Consulting Provider: Jian Lucas Reason for Consult: Fall, L hip fracture EMERGENT Consult: No MD Notified: Yes Date Notified: 04/05/24 Time Notified: 22:01 Method of Notification: ED Physician Initiated Reason For Visit: FALL, L HIP FRACTURE Diagnosis Discharge Diagnosis (1) Status post hip surgery: Status: Acute Code(s): Z98.890 - Other specified postprocedural states Plan Patient is a 69-year-old gentleman who presented to the emergency department following a fall imaging studies demonstrated left acutely impacted comminuted intertrochanteric fracture. Admitted to regular nursing floor with consultation placed orthopedic surgery 1. Fall with left acutely impacted comminuted intertrochanteric fracture. -Admitted to regular nursing floor treatment initiated with pain meds immobilization with consultation placed to orthopedic surgery. Patient preop assessment as documented by admitting physician ? 04/07/2024 patient underwent cephalomedullary gamma nailing by Dr. Lucas on 04/06/2024. 2.Elevated blood pressure on admission ? Patient does not have history of hypertension. This is reactive to. Do expect improvement seen blood pressure once pain is adequately controlled 3. Peripheral neuropathy ? Patient is a gabapentin 4. GERD ? On famotidine 5. BPH with lower urinary obstructive symptoms - Patient treated with tamsulosin and finasteride continued 7. Mild thrombocytopenia -Ordered CBC with differential for monitoring 8. Class I obesity with BMI of 33.1 ? Complicating care weight loss advised 9. Obstructive sleep apnea ? Consistent use of PAP therapy encouraged 10. Generalized osteoarthritis ? Patient is on meloxicam at home 11. DVT prophylaxis ? Bilateral SCDs for now with plans to initiate chemoprophylaxis following patient's surgery ? 04/07/2024 patient started on Xarelto for DVT prophylaxis following his surgical intervention Time spent in the patient's overall evaluation,decision-making process, review of diagnostic data, adjustment of management, discussion with other providers, nursing nursing and ancillary staff involved in patient's care documentation, 38 Minutes Medications at Discharge Home Medications famotidine 40 mg tablet 40 mg PO DAILY stomach 04/05/24 finasteride 5 mg tablet 5 mg PO DAILY prostate 04/05/24 gabapentin 600 mg tablet 600 mg PO TID Pain 04/05/24 tamsulosin 0.4 mg capsule 0.4 mg PO DAILY Bph 04/05/24 acetaminophen 500 mg tablet 1,000 mg (2 x 500 mg) PO Q8 #0 tabs 04/08/24 albuterol sulfate 2.5 mg/3 mL (0.083 %) solution for nebulization 2.5 mg (3 mL) inhalation Q2H PRN PRN Dyspnea, wheezing #0 mL 04/08/24 aluminum-mag hydroxide-simethicone 400 mg-400 mg-40 mg/5 mL oral susp (Mag-Al Plus Extra Strength) 30 ml PO Q6H PRN PRN Gastric Burning #0 mL 04/08/24 calcium carbonate 500 mg (2.5 x 200 mg calcium (500 mg)) PO TIDCM #0 tabs 04/08/24 food supplemt, lactose-reduced 0.08 gram-1.5 kcal/mL oral liquid (Ensure Plus High Protein) 120 ml PO TIDCM #0 mL 04/08/24 melatonin 3 mg tablet 3 mg PO QHS PRN PRN Insomnia #0 tabs 04/08/24 oxycodone 5 mg tablet 5 - 10 mg (1 - 2 x 5 mg) PO Q4H PRN PRN Pain Score 4-10 #0 tabs 04/08/24 rivaroxaban 10 mg tablet 10 mg PO DAILY #30 tabs 04/08/24 sennosides 8.6 mg-docusate sodium 50 mg tablet (Stimulant Laxative Plus) 2 tab PO BID #0 tabs 04/08/24 Hospital Course Summary of Care Provided Minutes Spent on Discharge: 35 Weight / BMI Weight Weight: 125.5 kg Body Mass Index (BMI) 34.4 ABG / Lab / Microbiology Data 04/08/24 05:29 04/08/24 05:29 Laboratory: Laboratory Results - last 24 hr 04/08/24 05:29: WBC 7.4, RBC 3.26 L, Hgb 10.6 L, Hct 32.3 L, MCV 99.1 H, MCH 32.5 H, MCHC 32.8, RDW Std Deviation 50.4 H, RDW Coeff of Roseann 13.7, Plt Count 110 L, MPV 11.0, Immature Gran % (Auto) 0.900, Neut % (Auto) 79.5 H, Lymph % (Auto) 10.6 L, [place] % (Auto) 8.4, Eos % (Auto) 0.5, Baso % (Auto) 0.1, Absolute Neuts (auto) 5.9, Absolute Lymphs (auto) 0.78 L, Nucleated RBC % 0, Sodium 136, Potassium 4.0, Chloride 104, Carbon Dioxide 28.0, Anion Gap 4 L, BUN 21 H, C reatinine 0.66 L, Estim Creat Clear Calc 124.37, Est GFR (MDRD) Af Amer 153, Est GFR (MDRD) Non-Af 127, BUN/Creatinine Ratio 31.7 H, Glucose 155 H, Calcium 8.3 L D/C Instructions Discharge Diet: No restrictions Discharge Activity: Return to Normal Activity Call your doctor if you observe: Fever of 101 or Higher, Shortness of breath, Fainting spells and Chest pain Meaningful Use Info Meaningful Use Meaningful Use Diagnoses (Choose all that apply): None applicable Ischemic Stroke Statin Dosing Therapy Reference: STATIN DOSE THERAPY REFERENCE: * Patients > 75 years receive moderate or high dose statin therapy. * Patients 75 years or YOUNGER should receive HIGH intensity statin dose unless contraindicated. You will be required to document reason for non-treatment if statin daily dose does not meet guidelines. HIGH DOSE STATIN THERAPY DAILY Atorvastatin > than or = to 40 mg Rosuvastatin > than or = to 20 mg Amlodipine + Atorvastatin > than or = to 2.5/40 mg Ezetimibe + Simvastatin 10/80 mg Simvastatin 80mg Discharge Plan Admission Admit Date/Time: 04/05/24 21:59 Attending Provider: Karel Perez Primary Care Provider: Jalil Tubbs Consulting Providers: Jian Lucas; Beatriz Hsieh Discharge Orders/Prescriptions Prescriptions: New albuterol sulfate 2.5 mg /3 mL (0.083 %) Solution For Nebulization 2.5 mg inhalation Q2H PRN PRN (Reason: Dyspnea, wheezing) Qty: 0 0RF melatonin 3 mg Tablet 3 mg PO QHS PRN PRN (Reason: Insomnia) Qty: 0 0RF acetaminophen 500 mg Tablet 1,000 mg PO Q8 Qty: 0 0RF calcium carbonate 200 mg calcium (500 mg) Tablet,Chewable 500 mg PO TIDCM Qty: 0 0RF alum-mag hydroxide-simeth [Mag-Al Plus Extra Strength] 400-400-40 mg/5 mL Suspension 30 ml PO Q6H PRN PRN (Reason: Gastric Burning) Qty: 0 0RF Ensure Plus High Protein 0.08 gram-1.5 kcal/mL Liquid 120 ml PO TIDCM Qty: 0 0RF sennosides-docusate sodium [Stimulant Laxative Plus] 8.6-50 mg Tablet 2 tab PO BID Qty: 0 0RF oxycodone 5 mg Tablet 5 - 10 mg PO Q4H PRN PRN (Reason: Pain Score 4-10) Qty: 0 0RF rivaroxaban 10 mg tablet 10 mg PO DAILY Qty: 30 0RF Continued gabapentin 600 mg tablet 600 mg PO TID famotidine 40 mg tablet 40 mg PO DAILY finasteride 5 mg tablet 5 mg PO DAILY tamsulosin 0.4 mg capsule 0.4 mg PO DAILY Discontinued meloxicam 15 mg tablet 15 mg PO DAILY tramadol 50 mg tablet 50 mg PO TID Referrals / Follow Up: Jian Lucas MD [Med Staff - Active Staff] - Within 2 Weeks Jalil Tubbs MD [Primary Care Provider] - Within 2 Weeks Disposition Disposition (needs filled in before D/C Order can be placed[facility] Charges/Coding Visit Charges Inpatient E&M: 95364 Disch Hosp >30min
[2024-04-08] MEDS: Famotidine 20 MG Tablet 40 MG PO (09:16)
[2024-04-08] MEDS: Finasteride 5 MG Tablet PO (09:16)
[2024-04-08] MEDS: Tamsulosin HCl 0.4 MG Capsule PO (09:16)
[2024-04-08] MEDS: Morphine 4 MG/ML Syringe IV (09:17)
[2024-04-08] MEDS: Ondansetron 4 MG/2 ML Vial IV (09:18)
--- NOTE | 2024-04-08 09:30 | RAD_ITS ---
EXAM: XR LEFT HIP WITH PELVIS WHEN PERFORMED, 2 OR 3 VIEWS CLINICAL INDICATION: unable to put any weight on foot left foot externa TECHNIQUE: Two or three views of the left hip with pelvis when performed. COMPARISON: No relevant prior studies available. FINDINGS: BONES/JOINTS: Acute incomplete fracture in the lesser trochanter of left femur. Partially-threaded screw penetrating the left femoral head and neck and the trochanteric nail are intact. No destructive or sclerotic lesions. Note that overlapping bowel shadows may however obscure fine detail. Sacroiliac joint is unremarkable. No widening of the pubic symphysis. The articular structures are unremarkable. SOFT TISSUES: Unremarkable. No soft tissue swelling or gas. RAD/HIP, UNI W/ Pelvis 2-3 Views IMPRESSION: Acute incomplete fracture in the lesser trochanter of the left femur but intact trochanteric fixation nail and the partially-threaded screw penetrating the left femoral head and neck. Electronically Signed: Efrain Vaca MD at 10:01 [facility] ,
[2024-04-08 10:00] VITALS: PULSE 60; RESP 18; O2SAT 95
--- NOTE | 2024-04-08 10:18 | NURSING ---
pt to x-ray and returned via bed after premedicated for pain/nausea
--- NOTE | 2024-04-08 12:55 | NURSING ---
report called to Kyara GRIFFIN in TCU-pt will go to room #3-they will call when it is ready-jb called about pt not getting lunch and they were given his requests to send jeramy so that pt can eat before he goes to TCU
--- NOTE | 2024-04-08 14:14 | NURSING ---
pt taken to TCU after staff called and stated bed was ready
[2024-04-08] MEDS: Calcium Carbonate 500 MG Tablet PO (14:22)
== END 2024-04-08 15:01 | disposition skilled nursing facility (03) | DRG 481 ==
LOC: ED 22:00 → MS3 22:13
PROVIDERS: Orthopaedic Surgery Orthopaedic Surgery of the Spine; Admitting Provider Family Medicine; Emergency Provider Emergency Medicine; PCP Internal Medicine; Visit Provider Internal Medicine
PROC: 0SSB04Z Reposition Left Hip Joint with Internal Fixation Device, Open Approach (ICD-10-PCS; CPT 27245; principal; 2024-04-06 12:30)
DX: S72.142A Displaced intertrochanteric fracture of left femur, initial encounter for closed fracture (principal); N13.8 Other obstructive and reflux uropathy; S32.029A Unspecified fracture of second lumbar vertebra, initial encounter for closed fracture; E66.811 Obesity, class 1; K21.9 Gastro-esophageal reflux disease without esophagitis; G62.9 Polyneuropathy, unspecified; M54.50 Low back pain, unspecified; M51.16 Intervertebral disc disorders with radiculopathy, lumbar region; M15.9 Polyosteoarthritis, unspecified; M54.30 Sciatica, unspecified side; G47.33 Obstructive sleep apnea (adult) (pediatric); M54.16 Radiculopathy, lumbar region; M48.061 Spinal stenosis, lumbar region without neurogenic claudication; R54 Age-related physical debility; M51.26 Other intervertebral disc displacement, lumbar region; Z87.891 Personal history of nicotine dependence; R73.9 Hyperglycemia, unspecified; G89.29 Other chronic pain; Z68.33 Body mass index [BMI] 33.0-33.9, adult; N40.1 Benign prostatic hyperplasia with lower urinary tract symptoms
CPT/HCPCS: 36415; 71045; 73502; 73600; 73700; 76000; 80048; 80053; 83036; 83735; 84100; 85025; 86850; 86900; 86901; 90662; 93005; 94668; 97163; 97166; 99285; C1713; A4216; J2405

== ENCOUNTER 2024-04-08 15:30 | Inpatient (IN) | payer MEDICARE, OTHER, SELFPAY ==
[2024-04-08 15:23] VITALS: BP 139/72; PULSE 119; RESP 18; TEMP 37; O2SAT 91; BMI 33.5
--- NOTE | 2024-04-08 16:37 | HP.PCM_ITS ---
HPI - General General Date of Admission: 04/08/24 Date of Service: 04/10/24 Chief Complaint: Here for rehabilitation. HPI Narrative TAVO SALAZAR, is a 69 Male who presents with followin04/05/2024 [facility] ED with fall. History of sciatica, spinal stenosis, numbness of low back radiating down legs, buttocks at times. Fell hard on left hip, possible head injury. Unable to move left leg 2/2 hip pain, unable to get up 2/2 left hip pain. Left ankle pain. Fentanyl, Dilaudid for pain. Chest X-ray okay. X-ray shows left hip fracture, CT shows left hip fracture. 04/05/2024 Admit [facility]. Prepare for surgery for left hip fracture. IV Hydralazine for elevated blood pressure. 04/06/2024 Dr. Lucas performed left hip ORIF of intertrochanteric fracture, cephaomedullary gamma nailing. 04/07/2024 Blood pressure adequately controlled. 04/07/2024 Pain in back, Pulsox 90%, Oxygen 2 liters per nasal cannula. Abdominal pain, nausea, vomiting x 1 episode. Xarelto 10mg daily for DVT prophylaxis. PT/OT for TCU. 04/08/2024 Admit to TCU with debility, here for rehabilitation, strengthening, prior to discharge home with . [facility] Medical History (Updated 04/08/24 @ 16:[address] Fernando Mejia MD) RADHA (obstructive sleep apnea) Former tobacco use BPH (benign prostatic hyperplasia) Obesity GERD (gastroesophageal reflux disease) Lumbar back pain with radiculopathy affecting lower extremity History of pelvic fracture Hernia Arthritis Spinal stenosis of lumbar region Home Medications ?Medication ?Instructions ?Recorded ?Last Taken ?Type famotidine 40 mg tablet 40 mg PO DAILY stomach 04/05/24 Unknown History finasteride 5 mg tablet 5 mg PO DAILY prostate 04/05/24 Unknown History gabapentin 600 mg tablet 600 mg PO TID Pain 04/05/24 Unknown History tamsulosin 0.4 mg capsule 0.4 mg PO DAILY Bph 04/05/24 Unknown History acetaminophen 500 mg tablet 1,000 mg (2 x 500 mg) PO Q8 Pain 04/08/24 Unknown Rx #0 tabs albuterol sulfate 2.5 mg/3 mL 2.5 mg (3 mL) inhalation Q2H PRN 04/08/24 Unknown Rx (0.083 %) solution for nebulization PRN Dyspnea, wheezing #0 mL aluminum-mag hydroxide-simethicone 30 ml PO Q6H PRN PRN Gastric 04/08/24 Unknown Rx 400 mg-400 mg-40 mg/5 mL oral susp Burning #0 mL (Mag-Al Plus Extra Strength) calcium carbonate 500 mg (2.5 x 200 mg calcium (500 04/08/24 Unknown Rx mg)) PO TIDCM GERD #0 tabs food supplemt, lactose-reduced 120 ml PO TIDCM Supplement #0 mL 04/08/24 Unknown Rx 0.08 gram-1.5 kcal/mL oral liquid (Ensure Plus High Protein) melatonin 3 mg tablet 3 mg PO QHS PRN PRN Insomnia #0 04/08/24 Unknown Rx tabs methocarbamol 500 mg tablet 500 mg PO TID PRN spasms #10 tabs 04/08/24 Unknown Rx oxycodone 5 mg tablet 5 - 10 mg (1 - 2 x 5 mg) PO Q4H 04/08/24 Unknown Rx PRN PRN Pain Score 4-10 #0 tabs rivaroxaban 10 mg tablet 10 mg PO DAILY DVT Prophylaxis #30 04/08/24 Unknown Rx tabs sennosides 8.6 mg-docusate sodium 2 tab PO BID Constipation #0 tabs 04/08/24 Unknown Rx 50 mg tablet (Stimulant Laxative Plus) Allergy/AdvReac Type Severity Reaction Status Date / Time No Known Allergies Allergy Verified 04/05/24 17:52 Family History Mother Kidney disease Father Heart disease CAD (coronary artery disease) Hypertension Surgical History History of bilateral inguinal hernia repair History of ankle surgery S/P foot surgery, right Social History household members: spouse Smoking Status: Former smoker Tobacco: How many years used: 3 how long ago did patient quit smoking: Smoked in the 1980s x 3 years < 1/4 ppd. alcohol intake: never substance use type: does not use ROS Constitutional Constitutional: Reports weakness; Denies chills, fever(s) or weight gain ENT HEENT: Denies headache(s), nasal congestion or nasal discharge Cardiovascular Cardiovascular: Denies chest pain or palpitations Respiratory/Chest Respiratory/Chest: Denies cough, excessive phlegm production or shortness of breath with exertion Gastrointestinal Gastrointestinal: Denies abdominal pain, nausea or vomiting Genitourinary Genitourinary: Denies dysuria Musculoskeletal Musculoskeletal: Denies joint pain or joint swelling Integumentary Integumentary: Denies rash or wounds Neurologic Neurologic: Denies focal weakness, numbness or tingling Psychiatric Psychiatric: Denies anxiety, auditory hallucinations, depression, homicidal ideation or suicidal ideation Vital Signs Vital Signs Vital Signs: 04/08/24 15:23 Temperature 98.6 F Temperature Source Oral Pulse Rate 119 H Respiratory Rate 18 Blood Pressure 139/72 H Blood Pressure Mean 94 Blood Pressure Source Monitor Blood Pressure Position Semi-Fowlers Blood Pressure Location Left Arm Pulse Ox 91 Oxygen Delivery Method Room Air Weight Weight: 118.66 kg Body Mass Index (BMI) 33.5 Physical Exam Const alert General Appearance: cooperative HEENT normocephalic Eyes PERRL and EOMs intact bilaterally Neck supple, no JVD and no carotid bruits Resp normal respiratory effort, normal air movement and clear to auscultation bilaterally Cardio regular rate and regular rhythm GI normal to inspection, nondistended, normoactive bowel sounds, non-tender and non-distended Extremity normal capillary refill General Extremity: Negative for edema Skin no rashes or lesions noted General Skin Exam: no breakdown Psych affect normal Appearance: appropriate Results Lab / Micro Data 04/09/24 06:18 04/09/24 06:18 Assessment & Plan Assessment/Plan (1) Debility: (2) Fall: (3) Fracture, intertrochanteric, left femur: QUALIFIERS: Encounter type: initial encounter Fracture alignment: displaced Fracture type: closed Qualified Code(s): S72.142A - Displaced intertrochanteric fracture of left femur, initial encounter for closed fracture (4) Closed left hip fracture: QUALIFIERS: Encounter type: initial encounter Qualified Code(s): S72.002A - Fracture of unspecified part of neck of left femur, initial encounter for closed fracture (5) Spinal stenosis of lumbar region: (6) Sciatica: (7) GERD (gastroesophageal reflux disease): (8) BPH (benign prostatic hyperplasia): (9) Osteoarthritis: PLAN: Plan 69 year old male with below past medical history hospitalized for left hip fracture, underwent left hip ORIF cephalomedullary gamma nailing 04/06/[address] Lucas, admitted to TCU with debility, here for rehabilitation, strengthening, prior to discharge home with . * Debility - PT/OT. * Pain - Tylenol 1000mg q8, Oxycodone 5-10mg q4 prn. * Bowel - senna/colace 2 tablets bid, Magnesium citrate 300mL po daily prn. * Adult immunization - Administer pneumonia vaccine, covid vaccine, flu vaccine as appropriate. * DVT prophylaxis - Xarelto 10mg daily thru 05/11/2024. * Shortness of breath - Albuterol 2.5mg q2h prn * Calcium deficiency - TUMS 500mg tidcm. * Nutrition - Ensure Plus 120mL po tidcm. * GERD - Famotidine 40mg daily, Mylanta 2 30ml q6 prn. * BPH - Finasteride 5mg daily, Tamsulosin 0.4mg daily. * Sciatica - Gabapentin 600mg tid. * Insomnia - Melatonin 3mg qhs prn. * Muscle spasm - Robaxin 500mg tidcm.
[2024-04-08] MEDS: Ensure Plus High Protein 120 ML LIQUID PO (16:51)
[2024-04-08] MEDS: oxyCODONE 5 MG Tablet PO ×2 (16:51→20:40)
[2024-04-08] MEDS: Calcium Carbonate 500 MG Tablet PO (16:51)
[2024-04-08] MEDS: Methocarbamol 500 MG Tablet PO (16:53)
[2024-04-08] MEDS: Rivaroxaban 10 MG Tablet PO (16:53)
[2024-04-08] MEDS: 0.9% Saline Lock 10 ML Syringe IV (20:38)
[2024-04-08] MEDS: Gabapentin 600 MG Tablet PO (20:38)
[2024-04-08] MEDS: Senna/Docusate Sodium 1 Tablet 2 TABLET PO (20:39)
[2024-04-08] MEDS: Acetaminophen 500 MG Tablet 1000 MG PO (20:40)
[2024-04-08] MEDS: MELATONIN 3 MG TABLET PO (20:43)
[2024-04-09] MEDS: oxyCODONE 5 MG Tablet PO ×5 (02:17→21:24)
[2024-04-09] MEDS: Gabapentin 600 MG Tablet PO ×3 (05:00→21:22)
[2024-04-09] MEDS: Acetaminophen 500 MG Tablet 1000 MG PO ×3 (05:00→21:23)
[2024-04-09 07:17] LABS: Absolute Lymphocyte Count 0.74 X10^3/uL (0.83-4.51); Absolute Neutrophil Count 5.6 X10^3/uL (2.0-7.7); Basophil# 0.02 X10^3/uL; Basophil% 0.3 % (0-1); Eosinophil# 0.04 X10^3/uL; Eosinophils% 0.6 % (0-5); Hematocrit 29.7 % (40-54); Hemoglobin 9.9 g/dL (13.0-16.5); Lymphocyte # 0.74 X10^3/ul (0.83-4.51); Lymphocyte % 10.4 % (19-41); Mean Corp Hgb Conc 33.3 g/dL (32-36); Mean Platelet Vol. 10.7 fl (6.2-12.0); Monocyte# 0.61 X10^3/uL; Monocyte% 8.6 % (0-10); NRBC Flagged by Analyzer 0 % (0-5); Platelet Count 117 K/mm3 (150-450); RBC Distribution Width CV 13.4 % (11.6-14.6); RBC Distribution Width SD 48.8 fl (35.1-43.9); White Blood Count 7.1 K/mm3 (4.4-11.0)
[2024-04-09 07:36] LABS: Anion Gap 3 (5-15); BUN 18 mg/dL (7-18); BUN/Creat Ratio 32.4 RATIO (10-20); Calcium,Total 8.5 mg/dL (8.5-10.1); Chloride 103 mmol/L (98-107); Creatinine, Serum 0.56 mg/dL (0.70-1.30); EST Glomerular Filtration Rate 155 mL/min (>60); Est Glom Filt Rate - Afr Amer 188 mL/min (>60); Glucose 135 mg/dL (74-106); Potassium 4.1 mmol/L (3.5-5.1); Sodium Level 136 mmol/L (136-145)
[2024-04-09] MEDS: Calcium Carbonate 500 MG Tablet PO ×3 (08:02→16:55)
[2024-04-09] MEDS: Ensure Plus High Protein 120 ML LIQUID PO ×3 (08:02→16:55)
[2024-04-09] MEDS: Tamsulosin HCl 0.4 MG Capsule PO (08:02)
[2024-04-09] MEDS: Finasteride 5 MG Tablet PO (08:03)
[2024-04-09] MEDS: Senna/Docusate Sodium 1 Tablet 2 TABLET PO (08:04)
[2024-04-09] MEDS: Methocarbamol 500 MG Tablet PO ×3 (08:06→23:21)
[2024-04-09] MEDS: Famotidine 20 MG Tablet 40 MG PO (09:36)
[2024-04-09] MEDS: Tuberculin,Purif.prot.deriv. 50 TU/ML Vial 0.1 ML ID (10:44)
[2024-04-09 13:31] VITALS: BP 132/70; PULSE 102; RESP 14; TEMP 37.3; O2SAT 94
[2024-04-09] MEDS: Magnesium Citrate 300 ML PO (15:39)
[2024-04-09] MEDS: 0.9% Saline Lock 10 ML Syringe IV ×2 (15:42→21:22)
[2024-04-09 15:51] VITALS: TEMP 36.7
[2024-04-09] MEDS: Rivaroxaban 10 MG Tablet PO (16:56)
--- NOTE | 2024-04-09 17:51 | RAD_ITS ---
EXAM: XR ABDOMEN, 1 VIEW CLINICAL INDICATION: constipation/vomiting TECHNIQUE: Frontal supine view of the abdomen/pelvis. COMPARISON: No relevant prior studies available. FINDINGS: LOWER THORAX: No acute pathology. GASTROINTESTINAL TRACT: Unremarkable. Non-obstructive. No bowel or stomach distention. ORGANS: Unremarkable as visualized. No organomegaly. No abnormal calcifications. BONES/JOINTS: Left femoral head IM sindy in place. Mild degenerative findings in both hips. Degenerative findings in the lumbar spine. SOFT TISSUES: No acute pathology. RAD/Abdomen Single View IMPRESSION: Mild degenerative findings in both hips. Electronically Signed: Otilio Maguire MD at 19:16 EST ,
[2024-04-09] MEDS: Nystatin Powder 15gm Bottle 1 APPLIC TOPICAL (23:16)
[2024-04-10] MEDS: oxyCODONE 5 MG Tablet PO ×2 (01:45→05:45)
[2024-04-10] MEDS: Methocarbamol 500 MG Tablet PO (04:12)
[2024-04-10] MEDS: Acetaminophen 500 MG Tablet 1000 MG PO ×3 (05:44→21:59)
[2024-04-10] MEDS: Gabapentin 600 MG Tablet PO (05:45)
[2024-04-10] MEDS: Tamsulosin HCl 0.4 MG Capsule PO (08:23)
[2024-04-10] MEDS: Calcium Carbonate 500 MG Tablet PO ×3 (08:23→17:17)
[2024-04-10] MEDS: Senna/Docusate Sodium 1 Tablet 2 TABLET PO (08:23)
[2024-04-10] MEDS: Famotidine 20 MG Tablet 40 MG PO (08:24)
[2024-04-10] MEDS: Nystatin Powder 15gm Bottle 1 APPLIC TOPICAL ×2 (08:24→22:08)
[2024-04-10] MEDS: Finasteride 5 MG Tablet PO (08:24)
[2024-04-10] MEDS: Ensure Plus High Protein 120 ML LIQUID PO ×3 (08:26→17:17)
[2024-04-10 08:30] VITALS: BP 134/74; PULSE 103; O2SAT 93
--- NOTE | 2024-04-10 08:32 | NURSING ---
Wharf Operator Note; Activity Asset: William Rees prefers to be called Shad. He is independent in his choice of daily activities. is activities coordinator has been in to visits twice and will continue visits along with and family. Shad has his smartphone, tv and will read. He welcomes visits from hunter trapper and therapy dog when available. Staff will remind him of weekly activities and respect his right to say no.
--- NOTE | 2024-04-10 09:56 | NURSING ---
CALLED OFFICE AND TALKED TO HIS NURSE. STATED PT NEEDS A FOLLOW UP AND DRESSING ORDERS,PT HAS SMALL AMOUNT OF BLEEDING. HIS NURSE STATED SHE WOULD REACH OUT TO AND CALL US BACK. RN AWARE
[2024-04-10] MEDS: oxyCODONE 5 MG Tablet 10 MG PO ×3 (10:10→20:16)
--- NOTE | 2024-04-10 11:01 | NURSING ---
Dr Lucas notified regarding xray done on 04/08 to be sure he viewed it, stated he did and its all good pt very painful, dr Mejia increased oxyir, neuronti, & robaxin doses.
[2024-04-10] MEDS: Gabapentin 800 MG Tablet PO ×2 (13:11→22:00)
[2024-04-10] MEDS: 0.9% Saline Lock 10 ML Syringe IV ×2 (13:14→22:01)
[2024-04-10] MEDS: Methocarbamol 500 MG Tablet 1000 MG PO ×2 (13:32→22:00)
--- NOTE | 2024-04-10 14:02 | PHA.CONS_ITS ---
Documented by User: Sean Martinez 04/10/24 14:18 TCU RX Drug Regimen Review Subjective/Objective Subjective/Objective Subjective: TCU admission note. 69 year old male with below past medical history hospitalized for left hip fracture, underwent left hip ORIF cephalomedullary gamma nailing 04/06/[address] Lucas, admitted to TCU with debility, here for rehabilitation, strengthening, prior to discharge home with . Objective: Allergies No Known Allergies Allergy (Verified 04/05/24 17:52) Current Medications Generic Name Dose Route Start Last Admin Trade Name Freq PRN Reason Stop Dose Admin Acetaminophen 1,000 mg 04/08/24 22:00 04/10/24 13:11 Acetaminophen 500 Mg Tablet PO 1,000 mg Q8 SINA Administration Al Hydroxide/Mg Hydroxide 30 ml 04/08/24 15:27 Mag Hydrox/Al Hydrox/Simeth 30 Ml Udc PO Q6H PRN PRN Gastric Burning Albuterol Sulfate 2.5 mg 04/08/24 15:27 Albuterol 2.5 Mg/3 Ml Vial.Neb. INHALATION Q2H PRN PRN Dyspnea, wheezing Calcium Carbonate 500 mg 04/08/24 17:45 04/10/24 13:11 Calcium Carbonate 500 Mg Tablet PO 500 mg TIDCM SINA Administration Famotidine 40 mg 04/09/24 10:00 04/10/24 08:24 Famotidine 20 Mg Tablet PO 40 mg DAILY SINA Administration Finasteride 5 mg 04/09/24 10:00 04/10/24 08:24 Finasteride 5 Mg Tablet PO 5 mg DAILY SINA Administration Gabapentin 800 mg 04/10/24 14:00 04/10/24 13:11 Gabapentin 800 Mg Tablet PO 800 mg TID SINA Administration Sodium Chloride 500 mls @ 15 mls/hr 04/08/24 15:51 IV .[id number] PRN Saline Flush Sodium Chloride 500 mls @ 15 mls/hr 04/08/24 15:51 IV .[id number] PRN Additional IVPB Infusion Magnesium Citrate 300 ml 04/08/24 16:52 04/09/24 15:39 Magnesium Citrate 300 Ml PO 300 ml DAILY PRN Administration Constipation Melatonin 3 mg 04/08/24 15:27 04/08/24 20:43 Melatonin 3 Mg Tablet PO 3 mg QHS PRN PRN Administration Insomnia Methocarbamol 1,000 mg 04/10/24 22:00 Methocarbamol 500 Mg Tablet PO QHS SINA Methocarbamol 1,000 mg 04/10/24 07:39 04/10/24 13:32 Methocarbamol 500 Mg Tablet PO 1,000 mg TID PRN PRN Administration spasms Nutritional Formula (Lactose Free) 120 ml 04/08/24 17:45 04/10/24 13:12 Ensure Plus High Protein 120 Ml Liquid PO 120 ml TIDCM SINA Administration Nystatin 1 applic 04/09/24 22:25 04/10/24 08:24 Nystatin Powder 15gm Bottle TOPICAL 1 applic BID SINA Administration Protocol Oxycodone HCl 10 mg 04/10/24 07:39 04/10/24 10:10 Oxycodone 5 Mg Tablet PO 10 mg Q4H PRN PRN Administration Pain Score 4-10 Rivaroxaban 10 mg 04/08/24 17:00 04/09/24 16:56 Rivaroxaban 10 Mg Tablet PO 05/11/24 23:59 10 mg DINNER SINA Administration Senna/Docusate Sodium 2 tablet 04/08/24 22:00 04/10/24 08:23 Senna/Docusate Sodium 1 Tablet PO 2 tablet BID SINA Administration Sodium Chloride 10 - 40 ml 04/08/24 15:51 04/10/24 13:14 0.9% Saline Lock 10 Ml Syringe IV 10 ml UD PRN Administration SALINE FLUSH Tamsulosin HCl 0.4 mg 04/09/24 10:00 04/10/24 08:23 Tamsulosin Hcl 0.4 Mg Capsule PO 0.4 mg DAILY SINA Administration Tuberculin PPD 0.1 ml 04/16/24 10:00 Tuberculin,Purif.Prot.Deriv. 50 Tu/Ml Vial ID 04/16/24 10:01 X1 ONE Problem List Osteoarthritis (Acute) BPH (benign prostatic hyperplasia) (Acute) GERD (gastroesophageal reflux disease) (Acute) Sciatica (Acute) Spinal stenosis of lumbar region (Acute) Debility (Acute) Fracture, intertrochanteric, left femur (Acute) Fall (Acute) Closed left hip fracture (Acute) Vital Signs Temp Pulse Resp BP Pulse Ox O2 Del Method 98.0 F 103 H 14 134/74 H 93 Room Air 04/09/24 15:51 04/10/24 08:30 04/09/24 13:31 04/10/24 08:30 04/10/24 08:30 04/10/24 08:30 Oxygen Delivery Method Room Air Weight: 118.6 kg Body Mass Index (BMI) 33.5 Sodium 136 mmol/L (136-145) 04/09/24 06:18 Potassium 4.1 mmol/L (3.5-5.1) 04/09/24 06:18 Chloride 103 mmol/L (98-107) 04/09/24 06:18 Carbon Dioxide 29.0 mmol/L (21.0-32.0) 04/09/24 06:18 Anion Gap 3 (5-15) L 04/09/24 06:18 BUN 18 mg/dL (7-18) 04/09/24 06:18 Creatinine 0.56 mg/dL (0.70-1.30) L 04/09/24 06:18 Est GFR (MDRD) Af Amer 188 mL/min (>60) 04/09/24 06:18 Est GFR (MDRD) Non-Af 155 mL/min (>60) 04/09/24 06:18 BUN/Creatinine Ratio 32.4 RATIO (10-20) H 04/09/24 06:18 Glucose 135 mg/dL (74-106) H 04/09/24 06:18 Assessment/Plan: 1. Pain: acetaminophen 1000 mg PO Q8, oxycodone 5-10 mg PO Q4H PRN pain. The patient has required 1 PRN dose of oxycodone so far this admission. Please continue to monitor pain levels, LFTs (AST/ALT = 20/18 U/L on 04/06/24), for constipation, for respiratory depression, for dizziness/syncope/ataxia/falls. 2. Bowel: senna/docusate 2 tablets PO BID, magnesium citrate 300 mL PO daily PRN constipation. The patient has required 1 dose of magnesium citrate so far this admission, and the patient's last bowel movement was on 04/10/24. Please continue to monitor for bowel movements, PRN medication usage, constipation and diarrhea. 3. DVT prophylaxis: rivaroxaban 10 mg PO with dinner through 05/11/24. Please continue to monitor for s/s of a DVT such as pain/swelling/erythema in an extremity, renal function (serum creatinine = 0.56 mg/dL with creatinine clearance ~ 119 mL/min on 04/09/24), for s/s of bleeding/excessive bruising, hemoglobin levels (Hgb = 9.9 g/dL on 04/09/24), and platelet counts (plt = 117 K /mm3 on 04/09/24). 4. BPH: finasteride 5 mg PO daily, tamsulosin 0.4 mg PO daily. Please continue to monitor for urinary retention, urine stream, for s/s of orthostasis and blood pressures (recent range = 102-139/62-75 mmHg). 5. Sciatica: gabapentin 800 mg PO TID. Please continue to monitor for nerve pain, renal function (serum creatinine = 0.56 mg/dL with creatinine clearance ~ 119 mL/min on 04/09/24), for lower extremity edema, and for dizziness/drowsiness, syncope ataxia and falls. 6. Muscle spasms: methocarbamol 1000 mg PO QHS, methocarbamol 1000 mg PO TID PRN spasms. The patient has required 1 dose of PRN methocarbamol so far this admission. Please continue to monitor for muscle spasms, for dizziness/ataxia/falls, and for drowsiness. 7. GERD: famotidine 40 mg PO daily, mylanta 30 mL PO daily PRN indigestion. The patient has not required any PRN doses of mylanta so far this admission. Please continue to monitor for s/s of GERD, renal function (serum creatinine = 0.56 mg/dL with creatinine clearance ~ 119 mL/min on 04/09/24), for confusion, and platelet counts (plt = 117 K/mm3 on 04/09/24). 8. Shortness of breath: albuterol 2.5 mg inhalation Q2H PRN shortness of breath. The patient has not required any PRN doses of albuterol so far this admission. Please continue to monitor for shortness of breath, and PRN medication usage. 9. Insomnia: melatonin 3 mg PO QHS PRN insomnia. The patient has required 1 PRN dose of melatonin so far this admission. Please continue to monitor for insomnia, for drowsiness, and for PRN medication administration. 10. Calcium deficiency: calcium carbonate 500 mg PO TID with meals. Please continue to monitor calcium levels (Ca = 8.5 mg/dL on 04/09/24). 11. Nutrition: ensure plus high protein 120 mL PO TID with meals. Please continue to monitor overall nutritional status. 12. Tinea corporis: nystatin powder 1 application topically BID. Please continue to monitor for resolution of tinea corporis. Assessment/Plan for indications treated with psychotropic medications: NA Medical chart and medication regimen reviewed. The following medication irregularities or issues were identified: NA Date Date of Note: 04/10/24 Documented by User: Dr. Fernando Mejia MD 04/10/24 15:05 TCU RX Drug Regimen Review Provider Comments Provider responsibility Provider Comments to Recommendations by Pharmacy Agree
[2024-04-10 15:56] VITALS: RESP 16; TEMP 36.8
--- NOTE | 2024-04-10 16:47 | CASEMGMT ---
Social Work SW met with patient to complete initial assessment. Introduced self and role. and dtr, Minerva, present. pt granted permission for SW to complete assessment with family present. Verified/updated contacts. Patient code status as full code. Pt agreed to complete advanced directives during stay. SW educated to Medicare benefit and copay coverage. pt's goal is [facility] a SNF. SW will continue to follow for DC planning and support. JAMAAL GalindoW
[2024-04-10] MEDS: Rivaroxaban 10 MG Tablet PO (17:16)
[2024-04-11] MEDS: MELATONIN 3 MG TABLET PO ×2 (00:20→22:39)
[2024-04-11] MEDS: oxyCODONE 5 MG Tablet 10 MG PO ×4 (00:20→20:01)
[2024-04-11] MEDS: Methocarbamol 500 MG Tablet 1000 MG PO ×2 (04:52→21:14)
[2024-04-11] MEDS: Acetaminophen 500 MG Tablet 1000 MG PO ×3 (06:10→21:16)
[2024-04-11] MEDS: Gabapentin 800 MG Tablet PO ×3 (06:11→21:14)
[2024-04-11] MEDS: Ensure Plus High Protein 120 ML LIQUID PO ×3 (08:37→17:11)
[2024-04-11] MEDS: Famotidine 20 MG Tablet 40 MG PO (08:37)
[2024-04-11] MEDS: Finasteride 5 MG Tablet PO (08:37)
[2024-04-11] MEDS: Calcium Carbonate 500 MG Tablet PO ×3 (08:37→17:12)
[2024-04-11] MEDS: Tamsulosin HCl 0.4 MG Capsule PO (08:37)
[2024-04-11] MEDS: Nystatin Powder 15gm Bottle 1 APPLIC TOPICAL ×2 (08:38→21:18)
[2024-04-11 09:40] VITALS: BMI 33.5
--- NOTE | 2024-04-11 12:36 | PCM.PN.ORT ---
Subjective Subjective Seen with Dr. Lucas. Asked to see patient in the TCU because of saturated dressings and pain. Patient has been in the TCU since Wednesday. Says that he walked 7 steps on Wednesday but then after that due to pain he has not ambulated more. Says that when he stands up his left hip and back hurts. Says he has a history of stenosis in his back. Patient continues to see therapy however he limits what they can do for him due to fear of pain. Objective Data Objective Data Vital Signs: Vital Signs Temp Pulse Resp BP Pulse Ox O2 Del Method 98.2 F 103 H 16 134/74 H 93 Room Air 04/10/24 15:56 04/10/24 08:30 04/10/24 15:56 04/10/24 08:30 04/10/24 08:30 04/11/24 10:00 Oxygen Delivery Method Room Air Weight: 261 lb 11.2 oz Body Mass Index (BMI) 33.5 Intake & Output: Intake and Output for Last 24 Hours 04/09/24 04/10/24 04/11/24 23:59 23:59 23:59 Intake Total 480 / 480 840 / 840 480 / 480 Output Total 650 / 650 550 / 550 Balance -170 / -170 290 / 290 480 / 480 Lab / Micro Data 04/09/24 06:18 04/09/24 06:18 Physical Exam Const alert, oriented x3 and no apparent distress Extremity Extremity Narrative: Patient is now 5 days post op L hip gamma nail fixation. Removed Tegaderm and gauze. Donna intact. Limited left lower extremity range of motion due to pain. Patient able to move left ankle. Right lower extremity also limited due to pain in his back with movement. Assessment & Plan Assessment/Plan (1) Fracture, intertrochanteric, left femur: QUALIFIERS: Encounter type: initial encounter Fracture type: closed Fracture alignment: displaced Qualified Code(s): S72.142A - Displaced intertrochanteric fracture of left femur, initial encounter for closed fracture PLAN: Plan POD 5 left hip gamma nail fixation. Xrays reviewed show good hardware positioning. Discussed imaging with the patient. Explained to the patient that he needs to do more with therapy and do more weight bearing activities such as walking, even if it hurts. Patient is not motivated to stand or walk when in pain but discussed that he will not get better if he does not start walking. Tegaderm and gauze removed, okay to keep incision open. If the donna bother the patient, okay to cover with a Bandaid. Change bandaid daily thereafter. [place] to be removed later next week. He will follow up in clinic at that time, or be seen in the TCU if still there.
[2024-04-11 15:32] VITALS: BP 135/68; PULSE 94; RESP 16; TEMP 36.3; O2SAT 95
[2024-04-11] MEDS: Rivaroxaban 10 MG Tablet PO (17:11)
[2024-04-11] MEDS: Senna/Docusate Sodium 1 Tablet 2 TABLET PO (21:16)
[2024-04-12] MEDS: oxyCODONE 5 MG Tablet 10 MG PO ×3 (02:56→12:05)
[2024-04-12] MEDS: Acetaminophen 500 MG Tablet 1000 MG PO ×2 (06:04→13:08)
[2024-04-12] MEDS: Gabapentin 800 MG Tablet PO ×2 (06:04→13:08)
[2024-04-12] MEDS: Methocarbamol 500 MG Tablet 1000 MG PO ×2 (06:05→15:12)
[2024-04-12] MEDS: Ensure Plus High Protein 120 ML LIQUID PO ×2 (07:48→12:08)
[2024-04-12] MEDS: Calcium Carbonate 500 MG Tablet PO ×2 (07:51→13:09)
[2024-04-12] MEDS: Tamsulosin HCl 0.4 MG Capsule PO (07:52)
[2024-04-12] MEDS: Nystatin Powder 15gm Bottle 1 APPLIC TOPICAL (07:52)
[2024-04-12] MEDS: Senna/Docusate Sodium 1 Tablet 2 TABLET PO (07:53)
[2024-04-12] MEDS: Finasteride 5 MG Tablet PO (07:53)
[2024-04-12] MEDS: Famotidine 20 MG Tablet 40 MG PO (07:53)
[2024-04-12] MEDS: 0.9% Saline Lock 10 ML Syringe IV (08:07)
[2024-04-12 08:17] VITALS: BP 132/79; PULSE 90; O2SAT 93
--- NOTE | 2024-04-12 09:26 | CASEMGMT ---
Social Work IDT met with patient, , dtr Minerva, for care plan meeting. Discussed patient's progress in PT/OT/SN. Educated to Medicare benefit. Provided family with written communication on insurance process and copay coverage during stay. Pt is currently a reuben. Pt's goal is to DC to his dtr[facility]. cannot care for pt. Discussed interventions to assist with pt's pain, appetite, repositioning, strengthening and the impact of mental health on the physical health. With pt and family input, concluded Dr. Mejia to speak with pt on baseline pain and medications, potentially adjust pain medication, nursing/therapy to offer heat/ice, OOB for lunch and dinner, notify nursing of potentially getting pt a trapeze, changed consistency of diet to assist with teeth pain from chewing (baseline). If pt does not improve, pt is agreeable to antidepressant to assist with appetite and motivation. Encouraged pt to provide feedback on pain, etc, for nursing and therapy to assist. Pt and family appreciative. Written communication left for Dr. Mejia. Will continue to follow. JAMAAL Galindo WIRE STITCHER
--- NOTE | 2024-04-12 11:44 | EKG12_ITS ---
Test Reason : CP Blood Pressure : */* mmHG Vent. Rate : 97 BPM Atrial Rate : 97 BPM P-R Int : 148 ms QRS Dur : 92 ms QT Int : 326 ms P-R-T Axes : 42 16 25 degrees QTcB Int : 414 ms Normal sinus rhythm Normal ECG No previous ECGs available Confirmed by JANEEN BORDEN, REMY ([id number]), newspaper or periodical editor PETER VÁZQUEZ ([id number]) on 04/13/2024 6:34:58 AM Referred By: LISETTE Confirmed By: REMY VERNON MD
[2024-04-12 11:48] VITALS: BP 127/90; PULSE 108; RESP 18; TEMP 36.6; O2SAT 93
--- NOTE | 2024-04-12 11:50 | NURSING ---
PT CAME BACK WITH THERAPY AND PT/THERAPY STATED THAT PT WAS HAVING SOME RT SIDE CHEST PAIN,DIZZINESS,NAUSEA. VITALS DONE,RESPIRATORY CALLED FOR A EKG STAT. PT SWEATY WITH SOME ANXIETY. RN AWARE. WILL BE NOTIFIED.
--- NOTE | 2024-04-12 14:19 | NURSING ---
Addendum entered by Bryan Vásquez 04/12/24 15:03: PT RETURNED TO FLOOR BY BED AT 1500. Original Note: PT TAKEN BY BED FOR A MRI OF THE SPINE NO CONTRAST AT 1400.
[2024-04-12 15:07] VITALS: RESP 16; TEMP 36.7
--- NOTE | 2024-04-12 17:20 | NURSING ---
dr cates reviewed MRI results, spoke with pt and . new order to send pt to ER for evaluation. pt transferred in bed to ER
--- NOTE | 2024-04-12 19:54 | DS.PCM_ITS ---
Providers Date of Admission: 04/08/24 Primary Care Physician: Dr. Jalil Tubbs MD Reason For Visit: FALL, L HIP FRACTURE Diagnosis Discharge Diagnosis (1) Fracture, intertrochanteric, left femur: Status: Acute Code(s): S72.142A - Displaced intertrochanteric fracture of left femur, initial encounter for closed fracture Qualifiers: Encounter type: initial encounter Fracture type: closed Fracture alignment: displaced Qualified Code(s): S72.142A - Displaced intertrochanteric fracture of left femur, initial encounter for closed fracture Plan 69 year old male with below past medical history hospitalized for left hip fracture, underwent left hip ORIF cephalomedullary gamma nailing 04/06/[address] Lucas, admitted to TCU with debility, here for rehabilitation, strengthening, prior to discharge home with . * Debility - PT/OT. * Pain - Tylenol 1000mg q8, Oxycodone 5-10mg q4 prn. * Bowel - senna/colace 2 tablets bid, Magnesium citrate 300mL po daily prn. * Adult immunization - Administer pneumonia vaccine, covid vaccine, flu vaccine as appropriate. * DVT prophylaxis - Xarelto 10mg daily thru 05/11/2024. * Shortness of breath - Albuterol 2.5mg q2h prn * Calcium deficiency - TUMS 500mg tidcm. * Nutrition - Ensure Plus 120mL po tidcm. * GERD - Famotidine 40mg daily, Mylanta 2 30ml q6 prn. * BPH - Finasteride 5mg daily, Tamsulosin 0.4mg daily. * Sciatica - Gabapentin 600mg tid. * Insomnia - Melatonin 3mg qhs prn. * Muscle spasm - Robaxin 500mg tidcm. Medications at Discharge Home Medications famotidine 40 mg tablet 40 mg PO DAILY stomach 04/05/24 finasteride 5 mg tablet 5 mg PO DAILY prostate 04/05/24 gabapentin 600 mg tablet 600 mg PO TID Pain 04/05/24 tamsulosin 0.4 mg capsule 0.4 mg PO DAILY Bph 04/05/24 acetaminophen 500 mg tablet 1,000 mg (2 x 500 mg) PO Q8 Pain #0 tabs 04/08/24 albuterol sulfate 2.5 mg/3 mL (0.083 %) solution for nebulization 2.5 mg (3 mL) inhalation Q2H PRN PRN Dyspnea, wheezing #0 mL 04/08/24 aluminum-mag hydroxide-simethicone 400 mg-400 mg-40 mg/5 mL oral susp (Mag-Al Plus Extra Strength) 30 ml PO Q6H PRN PRN Gastric Burning #0 mL 04/08/24 calcium carbonate 500 mg (2.5 x 200 mg calcium (500 mg)) PO TIDCM GERD #0 tabs 04/08/24 food supplemt, lactose-reduced 0.08 gram-1.5 kcal/mL oral liquid (Ensure Plus High Protein) 120 ml PO TIDCM Supplement #0 mL 04/08/24 melatonin 3 mg tablet 3 mg PO QHS PRN PRN Insomnia #0 tabs 04/08/24 methocarbamol 500 mg tablet 500 mg PO TID PRN spasms #10 tabs 04/08/24 oxycodone 5 mg tablet 5 - 10 mg (1 - 2 x 5 mg) PO Q4H PRN PRN Pain Score 4-10 #0 tabs 04/08/24 rivaroxaban 10 mg tablet 10 mg PO DAILY DVT Prophylaxis #30 tabs 04/08/24 sennosides 8.6 mg-docusate sodium 50 mg tablet (Stimulant Laxative Plus) 2 tab PO BID Constipation #0 tabs 04/08/24 Hospital Course Operations - (See below.) Procedures None Summary of Care Provided Hospital Course: 69 year old male with below past medical history hospitalized for left hip fracture, underwent left hip ORIF cephalomedullary gamma nailing 04/06/[address] Lucas, admitted to TCU with debility, here for rehabilitation, strengthening, prior to discharge home with . Resident has no pain in left hip, but severe pain of low back, limiting his ability to do therapy, MRI LS spine ordered. 04/12/2024 MRI LS spine: IMPRESSION: 1. A moderate to large sized oblique late subacute fracture is present through the anterior superior aspect of the L2 vertebral body with moderate displacement of the anterior superior smaller fracture fragment, partial tearing through the anterior longitudinal ligament across the disc space and attached to the small fracture fragment, and disruption/fracturing through the intervertebral disc which is expanded and full of hemorrhage and serous material. A small amount of extruded disc material and hemorrhage is present along the posterior cortex of the L2 vertebral body into the anterior epidural space resulting in severe central canal stenosis at this level which combine with facet joint and ligamenta flava hypertrophy. 2. Multilevel degenerative changes, as described above. Discharge to [facility] ED 04/12/2024 for evaluation, admission to hospital. Physical Exam Const alert General Appearance: cooperative HEENT normocephalic Eyes PERRL and EOMs intact bilaterally Neck supple, no JVD and no carotid bruits Resp normal respiratory effort, normal air movement and clear to auscultation bilaterally Cardio regular rate and regular rhythm GI normal to inspection, nondistended, normoactive bowel sounds, non-tender and non-distended Extremity normal capillary refill General Extremity: Negative for edema Skin no rashes or lesions noted General Skin Exam: no breakdown Neuro Neuro Narrative: Bilateral lower extremity weakness. Psych affect normal Appearance: appropriate Weight / BMI Weight Weight: 118.705 kg Body Mass Index (BMI) 33.5 ABG / Lab / Microbiology Data 04/09/24 06:18 04/09/24 06:18 D/C Instructions Weight Bearing Status: No weight bearing Call your doctor if you observe: Fever of 101 or Higher, Inability to urinate, Inability to have a bowel movement, Shortness of breath, Dizziness, Fainting spells, Swelling in the ankles, Chest pain and Uncontrolled pain DC O2, CPAP, BIPAP Needs Additional Home O2 Discharge instructions: No DC home with Oxygen: No Additional Instructions: Discharge to [facility] ED 04/12/2024 for evaluation, admission to hospital. Meaningful Use Info Meaningful Use Meaningful Use Diagnoses (Choose all that apply): None applicable Ischemic Stroke Statin Dosing Therapy Reference: STATIN DOSE THERAPY REFERENCE: * Patients > 75 years receive moderate or high dose statin therapy. * Patients 75 years or YOUNGER should receive HIGH intensity statin dose unless contraindicated. You will be required to document reason for non-treatment if statin daily dose does not meet guidelines. HIGH DOSE STATIN THERAPY DAILY Atorvastatin > than or = to 40 mg Rosuvastatin > than or = to 20 mg Amlodipine + Atorvastatin > than or = to 2.5/40 mg Ezetimibe + Simvastatin 10/80 mg Simvastatin 80mg Discharge Plan Admission Admit Date/Time: 04/08/24 15:30 Primary Reason for Your Visit: Debility. Attending Provider: Fernando Mejia Chi Primary Care Provider: Jalil Tubbs Instructions Additional Instructions / Restrictions: Discharge to [facility] ED 04/12/2024 for evaluation, admission to hospital. Discharge Orders/Prescriptions Prescriptions: No Action gabapentin 600 mg tablet 600 mg PO TID famotidine 40 mg tablet 40 mg PO DAILY finasteride 5 mg tablet 5 mg PO DAILY tamsulosin 0.4 mg capsule 0.4 mg PO DAILY albuterol sulfate 2.5 mg /3 mL (0.083 %) Solution For Nebulization 2.5 mg inhalation Q2H PRN PRN (Reason: Dyspnea, wheezing) Qty: 0 0RF melatonin 3 mg Tablet 3 mg PO QHS PRN PRN (Reason: Insomnia) Qty: 0 0RF acetaminophen 500 mg Tablet 1,000 mg PO Q8 Qty: 0 0RF calcium carbonate 200 mg calcium (500 mg) Tablet,Chewable 500 mg PO TIDCM Qty: 0 0RF alum-mag hydroxide-simeth [Mag-Al Plus Extra Strength] 400-400-40 mg/5 mL Suspension 30 ml PO Q6H PRN PRN (Reason: Gastric Burning) Qty: 0 0RF Ensure Plus High Protein 0.08 gram-1.5 kcal/mL Liquid 120 ml PO TIDCM Qty: 0 0RF sennosides-docusate sodium [Stimulant Laxative Plus] 8.6-50 mg Tablet 2 tab PO BID Qty: 0 0RF oxycodone 5 mg Tablet 5 - 10 mg PO Q4H PRN PRN (Reason: Pain Score 4-10) Qty: 0 0RF rivaroxaban 10 mg tablet 10 mg PO DAILY Qty: 30 0RF methocarbamol 500 mg tablet 500 mg PO TID PRN (Reason: spasms) Qty: 10 0RF Referrals / Follow Up: Jalil Tubbs MD [Primary Care Provider] - Disposition Disposition (needs filled in before D/C Order can be placed): Acute Care Hospital
--- NOTE | 2024-04-18 11:14 | MDS.RN ---
Information for the MDS was obtained from review of the clinical record, interview of resident, staff, and direct observation of resident?s care.
== END 2024-04-12 19:47 | disposition short-term general hospital (02) | DRG 561 ==
PROVIDERS: Admitting Provider Family Medicine Geriatric Medicine; PCP Internal Medicine; Visit Provider Family Medicine Geriatric Medicine
DX: S72.142D Displaced intertrochanteric fracture of left femur, subsequent encounter for closed fracture with routine healing (principal); S32.029D Unspecified fracture of second lumbar vertebra, subsequent encounter for fracture with routine healing; G47.00 Insomnia, unspecified; M48.061 Spinal stenosis, lumbar region without neurogenic claudication; K21.9 Gastro-esophageal reflux disease without esophagitis; M54.30 Sciatica, unspecified side; M19.90 Unspecified osteoarthritis, unspecified site; M62.838 Other muscle spasm; W19.XXXD Unspecified fall, subsequent encounter; G47.33 Obstructive sleep apnea (adult) (pediatric); N40.0 Benign prostatic hyperplasia without lower urinary tract symptoms; Z79.899 Other long term (current) drug therapy; Z87.891 Personal history of nicotine dependence; R06.02 Shortness of breath
CPT/HCPCS: 36415; 74018; 80048; 85025; 93005; 97110; 97162; 97167; 97530; 97802; A4216

== ENCOUNTER 2024-04-12 17:33 | Emergency (ER) | payer MEDICARE, OTHER, SELFPAY ==
[2024-04-12 17:34] VITALS: BP 147/74; PULSE 98; RESP 19; TEMP 37.1; O2SAT 94; BMI 34.1
--- NOTE | 2024-04-12 17:49 | EDS_ITS ---
HPI History of Present Illness Chief Complaint: Back Detail of Chief Complaint: Patient complains of back pain since fall April 05. Informant: patient and spouse/S.O. Onset/Context/Timing Onset: Days Mechanism/Context: Blunt Injury and Fall (Patient was seen on and diagnosed with a left hip fracture, intertrochanteric.) Location of pain/injuries: - (Central low back.) Quality of Pain: Dull and Aching Current Severity: Mild Maximum Severity: Severe Worsened by: Minimal movement of his legs Relieved by: Nothing Associated Symptoms Associated Symptoms: Positive for Inability to ambulate; Negative for Parasthesias, Weakness, Loss of function, Loss of consciousness or Amnesia Narrative Narrative: Patient is a 69-year-old male. Patient had a fall on the . He was admitted to the hospital for left hip fracture, intertrochanteric. He was operated on by Dr. Vera. He has had pain in his low back since. Is not been able to ambulate since surgery per patient and . He was sent from the TCU for evaluation because of an abnormal MRI. The MRI revealed a moderate to large sized tubelike subacute fracture through the anterior superior aspect of L2 vertebral body with moderate displacement of the anterior superior small fracture fragment with partial tear through the anterior longitudinal ligament across the disc space and attached to the small fracture fragment. There is disruption/fracturing through the intervertebral disc which is expanded and full of hemorrhage and serous material. There is also a small amount of extruded disc material and hemorrhage present along the posterior cortex of L2 vertebral body into the anterior epidural space resulting in severe central canal stenosis at this level which combined with the facet joint and ligament flavum hypertrophy. In light of this finding after examining patient Dr. Vigil was contacted. Prior similar symptoms: Yes Recent Illness/Hospitalization: Yes [facility] Medical History RADHA (obstructive sleep apnea) Former tobacco use BPH (benign prostatic hyperplasia) Obesity GERD (gastroesophageal reflux disease) Lumbar back pain with radiculopathy affecting lower extremity History of pelvic fracture Hernia Arthritis Spinal stenosis of lumbar region Home Medications ?Medication ?Instructions ?Recorded ?Last Taken ?Type famotidine 40 mg tablet 40 mg PO DAILY stomach 04/05/24 Unknown History finasteride 5 mg tablet 5 mg PO DAILY prostate 04/05/24 Unknown History gabapentin 600 mg tablet 600 mg PO TID Pain 04/05/24 Unknown History tamsulosin 0.4 mg capsule 0.4 mg PO DAILY Bph 04/05/24 Unknown History acetaminophen 500 mg tablet 1,000 mg (2 x 500 mg) PO Q8 Pain 04/08/24 Unknown Rx #0 tabs albuterol sulfate 2.5 mg/3 mL 2.5 mg (3 mL) inhalation Q2H PRN 04/08/24 Unknown Rx (0.083 %) solution for nebulization PRN Dyspnea, wheezing #0 mL aluminum-mag hydroxide-simethicone 30 ml PO Q6H PRN PRN Gastric 04/08/24 Unknown Rx 400 mg-400 mg-40 mg/5 mL oral susp Burning #0 mL (Mag-Al Plus Extra Strength) calcium carbonate 500 mg (2.5 x 200 mg calcium (500 04/08/24 Unknown Rx mg)) PO TIDCM GERD #0 tabs food supplemt, lactose-reduced 120 ml PO TIDCM Supplement #0 mL 04/08/24 Unknown Rx 0.08 gram-1.5 kcal/mL oral liquid (Ensure Plus High Protein) melatonin 3 mg tablet 3 mg PO QHS PRN PRN Insomnia #0 04/08/24 Unknown Rx tabs methocarbamol 500 mg tablet 500 mg PO TID PRN spasms #10 tabs 04/08/24 Unknown Rx oxycodone 5 mg tablet 5 - 10 mg (1 - 2 x 5 mg) PO Q4H 04/08/24 Unknown Rx PRN PRN Pain Score 4-10 #0 tabs rivaroxaban 10 mg tablet 10 mg PO DAILY DVT Prophylaxis #30 04/08/24 Unknown Rx tabs sennosides 8.6 mg-docusate sodium 2 tab PO BID Constipation #0 tabs 04/08/24 Unknown Rx 50 mg tablet (Stimulant Laxative Plus) Allergy/AdvReac Type Severity Reaction Status Date / Time Sulfa (Sulfonamide Allergy Hives Verified 04/12/24 17:36 Antibiotics) Family History Mother Kidney disease Father Heart disease CAD (coronary artery disease) Hypertension Surgical History History of bilateral inguinal hernia repair History of ankle surgery S/P foot surgery, right Social History household members: spouse Smoking Status: Former smoker Tobacco: How many years used: 3 how long ago did patient quit smoking: Smoked in the 1980s x 3 years < 1/4 ppd. alcohol intake: never substance use type: does not use ROS ROS ED Gastrointestinal Gastrointestinal: Reports other Details: Patient denies incontinence of stool. ; Denies abdominal pain, constipation, diarrhea, nausea or vomiting Genitourinary Genitourinary ED: Reports other Details: Patient denies urinary retention. Patient denies numbness in the perineal region. ; Denies dysuria, hematuria or urinary frequency Musculoskeletal Musculoskeletal: Reports back pain Integumentary Denies rash Neurologic Neurologic: Denies paresthesias or weakness Hematologic/Lymphatic Hematologic/Lymphatic: Reports other Details: Patient was placed on Xarelto postoperatively for DVT prophylaxis. ; Denies easy bleeding or easy bruising EXAM Physical Exam Const Vital Signs: 04/12/24 17:34 Temperature 98.8 F Temperature Source Oral Pulse Rate 98 Respiratory Rate 19 H Blood Pressure 147/74 H Blood Pressure Mean 98 Pulse Ox 94 Oxygen Delivery Method Room Air Positive well nourished and well developed Constitutional Narrative: Patient appears uncomfortable. BMI is 34.1. General Appearance ED: well developed; Negative for NAD HEENT atraumatic; Negative for tenderness Nose: Negative for septum abnormal Eyes EOMs intact bilaterally Chest Wall inspection of chest normal and palpation of chest normal Resp normal respiratory effort and clear to auscultation bilaterally Cardio regular rhythm, S1 normal heart sound, S2 normal heart sound and no murmurs GI normal to inspection, nondistended, normoactive bowel sounds, non-tender, non- distended and no masses Back/Spine Back/Spine Narrative: Unable to evaluate back because any attempt to move his legs or torso causes him significant pain. He states he developed spasms. Extremity Extremity Narrative: Patient has lymphedema. There is no neurovascular Mice. There is thickened toenails. Neuro oriented x3 and CN's II-XII intact bilaterally Neuro Narrative: He is able to wiggle his toes. He has normal sensation L3-L4 dermatome. Patella and ankle reflex are plus minus and symmetric. EHL is intact bilaterally. There is no Babinski sign noted right or right left. He has no decrease sensation in the perineal region. Marlee Coma Scale: document GCS findings Spontaneous Obeys Commands Oriented 15 Sensorium / Orientation: alert Plantar Reflex: Downgoing: bilateral Psych Mood & Affect: depressed Skin no rashes or lesions noted and no wounds Skin Narrative: Dressing from surgery is still in place. He had recent left hip surgery. MDM MDM MDM Narrative Medical decision making narrative: Patient was medicated for his pain. Dr. Vera was contacted. Reviewed MRI report. He will look at images and call back. Spoke with Dr. Vera. Dr. Vera did review the films. He stated patient be best served to transfer to a trauma center since he will need a multilevel fusion. Spoke with Regina at [facility] transfer line. She was informed the images were sent for the review of the spine surgeon. Will discuss case with the accepting physician and determine if he would like me to reverse him since he is on Xarelto and there is a epidural hematoma noted. Nurse checked with the facility and last dose of Xarelto was 1700 on April 11, yesterday. Patient is on Xarelto. Will reverse with Kcentra equivalent. Case was discussed with the ED physician Dr. Bourgeois at [facility]. The spine surgery who is any case is aware of the patient and MRI results. He requested ED to ED transfer to expedite definitive care for patient. History & Record Review Discussion w/independent historian: Patient and Family Additional record(s) reviewed:: Prior inpatient record, Prior outpatient record, Prior ED visit and Prior labs Lab Data Lab results narrative: H&H on 1115 was 11.9 and 36.1. H&H on 111 was 10.6 and 32.3. H&H on the was 9.9 and 29.7. Platelet count on April 09 was 117,000. Renal function has been normal. Glucose has been slightly elevated. Rhythm Strip Rhythm Strip: Sinus Rhythm Rate: 95 Ectopy: None Management Discussion w/another healthcare provider: Sustainability Consultant, Radiologist and Other (Regina transfer line nurse for [facility] who spoke to spine surgeon and I spoke to the ED physician) Critical Care Time Critical Care Time: Yes Critical care time (excluding procedures): 30-74 minutes (31), Including time spent: (History, physical, documentation, review of prior records and lab results), Discussing w/Patient &/or Family/Dump Grounds Checker, Discussing w/Consultants (Dr. Vera, transfer line, spine surgeon and ED physician), Arranging Admission or Transfer and - (Reversing agent for Xarelto due to epidural hematoma from fracture) Discharge Plan Triage Chief Complaint: Back ED Provider: Sarath Otero Dx/Rx/DC Orders Clinical Impression: Closed L2 vertebral fracture, Spinal stenosis of lumbar region, Herniated lumbar intervertebral disc, Spinal epidural hematoma Prescriptions: No Action gabapentin 600 mg tablet 600 mg PO TID famotidine 40 mg tablet 40 mg PO DAILY finasteride 5 mg tablet 5 mg PO DAILY tamsulosin 0.4 mg capsule 0.4 mg PO DAILY albuterol sulfate 2.5 mg /3 mL (0.083 %) Solution For Nebulization 2.5 mg inhalation Q2H PRN PRN (Reason: Dyspnea, wheezing) Qty: 0 0RF melatonin 3 mg Tablet 3 mg PO QHS PRN PRN (Reason: Insomnia) Qty: 0 0RF acetaminophen 500 mg Tablet 1,000 mg PO Q8 Qty: 0 0RF calcium carbonate 200 mg calcium (500 mg) Tablet,Chewable 500 mg PO TIDCM Qty: 0 0RF alum-mag hydroxide-simeth [Mag-Al Plus Extra Strength] 400-400-40 mg/5 mL Suspension 30 ml PO Q6H PRN PRN (Reason: Gastric Burning) Qty: 0 0RF Ensure Plus High Protein 0.08 gram-1.5 kcal/mL Liquid 120 ml PO TIDCM Qty: 0 0RF sennosides-docusate sodium [Stimulant Laxative Plus] 8.6-50 mg Tablet 2 tab PO BID Qty: 0 0RF oxycodone 5 mg Tablet 5 - 10 mg PO Q4H PRN PRN (Reason: Pain Score 4-10) Qty: 0 0RF rivaroxaban 10 mg tablet 10 mg PO DAILY Qty: 30 0RF methocarbamol 500 mg tablet 500 mg PO TID PRN (Reason: spasms) Qty: 10 0RF Primary Care Provider: Jalil Tubbs Referrals: Jalil Tubbs MD [Primary Care Provider] - Print Language: Guamanian
[2024-04-12] MEDS: Ondansetron 4 MG/2 ML Vial IV (18:03)
[2024-04-12] MEDS: HYDROmorphone 1 MG/ML Syringe 0.5 MG IV (18:03)
[2024-04-12 19:04] LABS: Absolute Lymphocyte Count 0.75 X10^3/uL (0.83-4.51); Absolute Neutrophil Count 6.7 X10^3/uL (2.0-7.7); Basophil# 0.04 X10^3/uL; Basophil% 0.5 % (0-1); Eosinophil# 0.02 X10^3/uL; Eosinophils% 0.2 % (0-5); Hematocrit 31.6 % (40-54); Hemoglobin 10.6 g/dL (13.0-16.5); Lymphocyte # 0.75 X10^3/ul (0.83-4.51); Lymphocyte % 8.9 % (19-41); Mean Corp Hgb Conc 33.5 g/dL (32-36); Mean Corpuscular Hgb 32.7 pg (27.0-32.0); Mean Corpuscular Volume 97.5 fL (80-94); Mean Platelet Vol. 9.8 fl (6.2-12.0); Monocyte# 0.67 X10^3/uL; Monocyte% 7.9 % (0-10); NRBC Flagged by Analyzer 0 % (0-5); Neutrophil # 6.74 X10^3/uL (2.7-7.7); Platelet Count 204 K/mm3 (150-450); RBC Distribution Width SD 49.9 fl (35.1-43.9); Red Blood Count 3.24 M/mm3 (4.6-6.2); White Blood Count 8.4 K/mm3 (4.4-11.0)
[2024-04-12] MEDS: VIAFLEX IV (19:12)
[2024-04-12] MEDS: HUM PROTHROMBIN CPLX LANS IV (19:12)
[2024-04-12 19:13] VITALS: BP 139/75; PULSE 95; RESP 14; O2SAT 95
[2024-04-12 19:18] LABS: Anion Gap 6 (5-15); BUN 25 mg/dL (7-18); BUN/Creat Ratio 36.4 RATIO (10-20); Calcium,Total 9.1 mg/dL (8.5-10.1); Chloride 98 mmol/L (98-107); Creatinine, Serum 0.69 mg/dL (0.70-1.30); EST Glomerular Filtration Rate 121 mL/min (>60); Est Glom Filt Rate - Afr Amer 147 mL/min (>60); Estimated Creatinine Clearance 120.26 ml/min; Glucose 140 mg/dL (74-106); Potassium 4.6 mmol/L (3.5-5.1); Sodium Level 134 mmol/L (136-145)
[2024-04-12 19:32] VITALS: BP 131/84; PULSE 98; RESP 16; TEMP 37.1; O2SAT 93
[2024-04-12] MEDS: HYDROmorphone 0.5 MG/0.5 ML SYRINGE IV (19:56)
[2024-04-12 19:57] VITALS: BP 111/79; PULSE 100; RESP 14; O2SAT 95
== END 2024-04-12 20:05 | disposition short-term general hospital (02) ==
PROVIDERS: Emergency Provider Emergency Medicine; PCP Internal Medicine; Visit Provider Emergency Medicine
DX: S32.029A Unspecified fracture of second lumbar vertebra, initial encounter for closed fracture (principal); S34.102A Unspecified injury to L2 level of lumbar spinal cord, initial encounter; W19.XXXA Unspecified fall, initial encounter; N40.0 Benign prostatic hyperplasia without lower urinary tract symptoms; E66.9 Obesity, unspecified; K21.9 Gastro-esophageal reflux disease without esophagitis; G47.33 Obstructive sleep apnea (adult) (pediatric); M51.16 Intervertebral disc disorders with radiculopathy, lumbar region; M48.061 Spinal stenosis, lumbar region without neurogenic claudication; Z88.2 Allergy status to sulfonamides; Z79.01 Long term (current) use of anticoagulants; Z68.34 Body mass index [BMI] 34.0-34.9, adult; Z87.19 Personal history of other diseases of the digestive system; Z79.899 Other long term (current) drug therapy; Z87.891 Personal history of nicotine dependence
CPT/HCPCS: 80048; 85025; 96365; 96375; 96376; 99284; A4216; C9159; J2405

== ENCOUNTER → 2024-04-12 | Outpatient (CLI) | payer MEDICARE, OTHER, SELFPAY ==
--- NOTE | 2024-04-12 14:30 | MRI_ITS ---
STUDY: MRI LUMBAR SPINE WITHOUT CONTRAST REASON FOR EXAM: Male, 69 years old. SPINAL STENOSIS TECHNIQUE: Standardized fat and water weighted pulse sequences were obtained in the sagittal and axial planes. COMPARISON: None FINDINGS: * A moderate to large sized oblique late subacute fracture is present through the anterior superior aspect of the L2 vertebral body with moderate displacement of the anterior superior smaller fracture fragment, partial tearing through the anterior longitudinal ligament across the disc space and attached to the small fracture fragment, and disruption/fracturing through the intervertebral disc which is expanded and full of hemorrhage and serous material. A small amount of extruded disc material and hemorrhage is present along the posterior cortex of the L2 vertebral body into the anterior epidural space resulting in severe central canal stenosis at this level which combine with facet joint and ligamenta flava hypertrophy. * There are pre-existing chronic compression deformities of the L5, L4, T12, and L1 vertebral bodies with varying degrees of loss of height. Normal lumbar lordosis. There is a dextroscoliosis of the lumbar spine. Normal conus medullaris that terminates at the L1 level. L1-2: Diffuse disc osteophyte complex. Mild central canal stenosis. Moderate facet joint hypertrophy with moderate bilateral foraminal stenosis with nerve root compression. L2-3: Diffuse disc desiccation with minimal disc space narrowing and annular bulging. Normal bilateral facet joints. Moderate to severe central canal stenosis due to anterior epidural hemorrhage in the extruded disc material. Mild to moderate facet joint hypertrophy. Severe bilateral foraminal stenosis with nerve root compression. L3-4: Diffuse disc desiccation with mild posterior disc space narrowing with a diffuse disc spur complex combined with severe facet joint and ligament of flavum hypertrophy causing severe central canal stenosis and bilateral lateral recess stenosis with near complete spinal block. Moderate to severe bilateral foraminal stenosis with nerve root compression is also present. L4-5: Normal endplates. Diffuse disc desiccation with mild disc space narrowing. Mild facet joint hypertrophy and mild bilateral foraminal stenosis. Normal central canal and bilateral lateral recesses. L5-S1: Disc desiccation with mild posterior disc space narrowing and slight annular bulge/spur complex. Anterolisthesis of L5 on S1 of 2 to 3 mm. Moderate facet joint hypertrophy contributing to mild central canal stenosis and bilateral lateral recess stenosis with nerve root compression. Moderate bilateral foraminal stenosis, left greater than right with nerve root compression. Normal visualized sacral ala. A small moderate size simple cyst is partially visualized in the midpole of the right kidney. There is moderate paraspinal muscular atrophy. MRI/Spine Lumbar (Routine) IMPRESSION: 1. A moderate to large sized oblique late subacute fracture is present through the anterior superior aspect of the L2 vertebral body with moderate displacement of the anterior superior smaller fracture fragment, partial tearing through the anterior longitudinal ligament across the disc space and attached to the small fracture fragment, and disruption/fracturing through the intervertebral disc which is expanded and full of hemorrhage and serous material. A small amount of extruded disc material and hemorrhage is present along the posterior cortex of the L2 vertebral body into the anterior epidural space resulting in severe central canal stenosis at this level which combine with facet joint and ligamenta flava hypertrophy. 2. Multilevel degenerative changes, as described above. Electronically Signed: Luis Angel House MD at 15:40 EST ,
== END | disposition home or self-care (01) ==
LOC: MRI 13:54
PROVIDERS: PCP Internal Medicine; Referring Provider Family Medicine Geriatric Medicine; Visit Provider Family Medicine Geriatric Medicine
DX: M48.07 Spinal stenosis, lumbosacral region (principal)
CPT/HCPCS: 72148

== ENCOUNTER 2024-04-18 16:35 | Inpatient (IN) | payer MEDICARE, OTHER, SELFPAY ==
[2024-04-18 17:01] VITALS: BP 118/74; PULSE 106; RESP 16; TEMP 37.3; O2SAT 98
[2024-04-18] MEDS: Cephalexin 500 MG Capsule PO (18:19)
[2024-04-18] MEDS: Acetaminophen 500 MG Tablet PO (18:19)
[2024-04-18] MEDS: Gabapentin 600 MG Tablet PO ×2 (18:19→21:01)
[2024-04-18] MEDS: oxyCODONE 5 MG Tablet PO ×2 (18:22→23:05)
--- NOTE | 2024-04-18 20:40 | HP.PCM_ITS ---
HPI - General General Date of Admission: 04/18/24 Date of Service: 04/18/24 Chief Complaint: Here for rehabilitation. HPI Narrative TAVO SALAZAR, is a 69 M who presents with followin04/12/2024 [facility] ED TCU resident for left hip fracture, c/o back pain. 04/12/2024 MRI LS spine. IMPRESSION: 1. A moderate to large sized oblique late subacute fracture is present through the anterior superior aspect of the L2 vertebral body with moderate displacement of the anterior superior smaller fracture fragment, partial tearing through the anterior longitudinal ligament across the disc space and attached to the small fracture fragment, and disruption/fracturing through the intervertebral disc which is expanded and full of hemorrhage and serous material. A small amount of extruded disc material and hemorrhage is present along the posterior cortex of the L2 vertebral body into the anterior epidural space resulting in severe central canal stenosis at this level which combine with facet joint and ligamenta flava hypertrophy. 2. Multilevel degenerative changes, as described above. Kcentra given to reverse Xarelto. Transfer to [facility]. 04/13/2024 Admit [facility]. 04/13/2024 Ortho spine performed T11-L4 posterior spinal fusion with an L2 laminectomy decompression. 04/17/2024 Drain pulled. TLSO brace when HOB 30 degrees or greater. Keflex x 7 days for Impetigo. Hemoglobin 8.1. Sodium 126. 04/18/2024 Admit to TCU with debility, here for rehabilitation, strengthening, prior to discharge home with Zaynab. FORMERLY [facility], [facility] Medical History (Updated 04/18/24 @ 20:[address] Fernando Mejia MD) ARDHA (obstructive sleep apnea) Former tobacco use BPH (benign prostatic hyperplasia) Obesity GERD (gastroesophageal reflux disease) Lumbar back pain with radiculopathy affecting lower extremity History of pelvic fracture Hernia Arthritis Spinal stenosis of lumbar region Home Medications ?Medication ?Instructions ?Recorded ?Last Taken ?Type famotidine 40 mg tablet 40 mg PO DAILY stomach 04/05/24 Unknown History finasteride 5 mg tablet 5 mg PO DAILY prostate 04/05/24 Unknown History gabapentin 600 mg tablet 600 mg PO .5x day Pain 04/05/24 Unknown History tamsulosin 0.4 mg capsule 0.4 mg PO DAILY Bph 04/05/24 Unknown History albuterol sulfate 2.5 mg/3 mL 2.5 mg (3 mL) inhalation Q2H PRN 04/08/24 Unknown Rx (0.083 %) solution for nebulization PRN Dyspnea, wheezing #0 mL aluminum-mag hydroxide-simethicone 30 ml PO Q6H PRN PRN Gastric 04/08/24 Unknown Rx 400 mg-400 mg-40 mg/5 mL oral susp Burning #0 mL (Mag-Al Plus Extra Strength) calcium carbonate 500 mg (2.5 x 200 mg calcium (500 04/08/24 Unknown Rx mg)) PO TIDCM GERD #0 tabs food supplemt, lactose-reduced 120 ml PO TIDCM Supplement #0 mL 04/08/24 Unknown Rx 0.08 gram-1.5 kcal/mL oral liquid (Ensure Plus High Protein) melatonin 3 mg tablet 3 mg PO QHS PRN PRN Insomnia #0 04/08/24 Unknown Rx tabs methocarbamol 500 mg tablet 500 mg PO TID PRN spasms #10 tabs 04/08/24 Unknown Rx oxycodone 5 mg tablet 5 - 10 mg (1 - 2 x 5 mg) PO Q4H 04/08/24 Unknown Rx PRN PRN Pain Score 4-10 #0 tabs rivaroxaban 10 mg tablet 10 mg PO DAILY DVT Prophylaxis #30 04/08/24 Unknown Rx tabs acetaminophen 500 mg tablet 500 mg PO Q6H Pain 04/18/24 Unknown History cephalexin 500 mg capsule 500 mg PO Q6H infection 04/18/24 Unknown History cyclobenzaprine 5 mg tablet 5 mg PO TID PRN muscle relax 04/18/24 Unknown History multivitamin (Daily Multi-Vitamin 1 tab PO DAILY supp 04/18/24 Unknown History tablet) mupirocin 2 % topical ointment 1 applic topical TID chin 04/18/24 Unknown History polyethylene glycol 3350 17 17 g PO DAILY bowels 04/18/24 Unknown History gram/dose oral powder (Natura-LAX) sennosides 8.6 mg-docusate sodium 1 tab PO BID Constipation 04/18/24 Unknown History 50 mg tablet (Stimulant Laxative Plus) tramadol 50 mg tablet 50 mg PO 4X/DAY pain 04/18/24 Unknown History Allergy/AdvReac Type Severity Reaction Status Date / Time Sulfa (Sulfonamide Allergy Hives Verified 04/12/24 17:36 Antibiotics) Family History Mother Kidney disease Father Heart disease CAD (coronary artery disease) Hypertension Surgical History (Updated 04/18/24 @ 20:[address] Fernando Mejia MD) History of lumbar spinal fusion History of bilateral inguinal hernia repair History of ankle surgery S/P foot surgery, right Social History household members: spouse Smoking Status: Former smoker Tobacco: How many years used: 3 how long ago did patient quit smoking: Smoked in the 1980s x 3 years < 1/4 ppd. alcohol intake: never substance use type: does not use ROS Constitutional Constitutional: Reports weakness; Denies chills, fever(s) or weight gain ENT HEENT: Denies headache(s), nasal congestion or nasal discharge Cardiovascular Cardiovascular: Denies chest pain or palpitations Respiratory/Chest Respiratory/Chest: Denies cough, excessive phlegm production or shortness of breath with exertion Gastrointestinal Gastrointestinal: Denies abdominal pain, nausea or vomiting Genitourinary Genitourinary: Denies dysuria Musculoskeletal Musculoskeletal: Denies joint pain or joint swelling Integumentary Integumentary: Denies rash or wounds Neurologic Neurologic: Denies focal weakness, numbness or tingling Psychiatric Psychiatric: Denies anxiety, auditory hallucinations, depression, homicidal ideation or suicidal ideation Vital Signs Vital Signs Vital Signs: 04/18/24 17:01 Temperature 99.2 F H Temperature Source Temporal Pulse Rate 106 H Respiratory Rate 16 Blood Pressure 118/74 Blood Pressure Mean 88 Blood Pressure Source Monitor Blood Pressure Position Semi-Fowlers Blood Pressure Location Right Arm Pulse Ox 98 Oxygen Delivery Method Room Air Physical Exam Const alert General Appearance: cooperative HEENT normocephalic HEENT Narrative: Chin abrasion. Eyes PERRL and EOMs intact bilaterally Neck supple, no JVD and no carotid bruits Resp normal respiratory effort, normal air movement and clear to auscultation bilaterally Cardio regular rate and regular rhythm GI normal to inspection, nondistended, normoactive bowel sounds, non-tender and non-distended Back/Spine Back/Spine Narrative: TLSO brace. Extremity normal capillary refill General Extremity: Negative for edema Skin no rashes or lesions noted General Skin Exam: no breakdown Psych affect normal Appearance: appropriate Assessment & Plan Assessment/Plan (1) Debility: (2) Closed L2 vertebral fracture: (3) Herniated lumbar intervertebral disc: (4) Closed left hip fracture: QUALIFIERS: Encounter type: initial encounter Qualified Code(s): S72.002A - Fracture of unspecified part of neck of left femur, initial encounter for closed fracture (5) GERD (gastroesophageal reflux disease): (6) BPH (benign prostatic hyperplasia): (7) Insomnia: (8) Muscle spasm: PLAN: Plan 69 year old male with below past medical history hospitalized for L2 fracture, herniate lumbar disc, underwent T11 - L4 posterior spinal fusion, L2 laminectomy decompression 04/13/2024, complicated by postoperative anemia, hyponatremia, recent left hip fracture, underwent left hip ORIF cephalomedullary gamma nailing 04/06/2024, admitted to TCU with debility, here for rehabilitation, strengthening, prior to discharge home with . * Debility - PT/OT. * Pain - Tylenol 1000mg q8, Tramadol 50mg 4x/day, Oxycodone 5-10mg q4 prn. * Bowel - Miralax 17gm daily, senna/colace 2 tablets bid, Magnesium citrate 300mL daily prn. * Adult immunization - Administer pneumonia vaccine, covid vaccine, flu vaccine as appropriate. * DVT prophylaxis - Lovenox 40mg sc daily. * Impetigo - Keflex 500mg q8 thru 04/22/2024. * Muscle spasm - Flexeril 5mg tid prn. * GERD - Finasteride 5mg daily, Tamsulosin 0.4mg daily. * Lumbar radiculopathy - Gabapentin 600mg 5x/day. * Skin irritation - Calmoseptine topical bid. * Nutrition - MVI 1 tablet daily. * Chin abrasion - Mupirocin topical tid thru 04/21/2024. * Hyponatremia - cmp in am, last sodium 126. * Postoperative anemia - cbcd in am, last hemoglobin 8.1.
[2024-04-18] MEDS: Senna/Docusate Sodium 1 Tablet PO (21:01)
[2024-04-18] MEDS: traMADol 50 MG Tablet PO (21:01)
[2024-04-18] MEDS: Menthol/Lanolin/Calamine/Znox 113 GM Tube 1 APPLIC TOPICAL (21:02)
[2024-04-18] MEDS: Mupirocin Ointment 22gm Tube 1 APPLIC TOPICAL (21:02)
[2024-04-18] MEDS: cycloBENZAPRine HCl 5 MG TABLET PO (21:07)
[2024-04-18] MEDS: Acetaminophen 500 MG Tablet 1000 MG PO (23:05)
--- NOTE | 2024-04-18 23:13 | NURSING ---
2100. This RN and CHILD LIFE ASSISTANT into room to reposition pt and complete assessment. red rash noted to pts ABD, BUE and bilat thighs. pt states the rash was not there before. pt denies cp or sob or itching throat/ears. pt recently received a dose of keflex at 1800. blister like area also noted to R upper back where brace is rubbing. pictures sent to Roberto. roberto stated possible impetigo. This RN advocated heavily for the dc of keflex as pt was adamant that rash was not there previously. Pt is a new admit, no skin issues other than pts chin sore was noted to this RN in bedside report. Keflex dc'd and new orders for doxy 100mg BID for 7 days and hydrocortisone 2.5% cream to be applied to rash areas and\or itching.
[2024-04-18] MEDS: Hydrocortisone 2.5% Crm 1 APPLIC TOPICAL (23:20)
[2024-04-18] MEDS: Doxycycline 100 MG CAPSULE PO (23:20)
--- NOTE | 2024-04-18 23:52 | NURSING ---
Spoke with Dr. Mejia via telephone regarding observation of rash to back upon initial assessment, and a friction blister forming to Right Upper back d/t back brace rubbing against skin. Dr. Mejia notified of IV Keflex for impetigo treatment to chin. ELIAS Duncan, raised concern that the rash may had developed d/t IV Keflex use since patient reported the rash to be new since being here (TCU). New Order to swab back for MRSA gram stain and culture. Verified order. This nurse spoke with Dr. Mejia via telephone again after assessing patient. The blister to back did not have any drainage, MRSA swab could not be completed. Call was continued by ELIAS Duncan, to answer more specific questions regarding the patient and her observations.
[2024-04-19] MEDS: oxyCODONE 5 MG Tablet PO ×2 (03:07→10:14)
[2024-04-19 04:12] VITALS: BMI 32.9
[2024-04-19 06:09] LABS: Hematocrit 23.5 % (40-54); Hemoglobin 7.8 g/dL (13.0-16.5); Mean Corp Hgb Conc 33.2 g/dL (32-36); Mean Corpuscular Hgb 32.6 pg (27.0-32.0); Mean Corpuscular Volume 98.3 fL (80-94); Mean Platelet Vol. 10.5 fl (6.2-12.0); POSITIVE COUNT YES; POSITIVE MORPHOLOGY YES; Platelet Count 227 K/mm3 (150-450); RBC Distribution Width CV 14.2 % (11.6-14.6); RBC Distribution Width SD 50.6 fl (35.1-43.9); Red Blood Count 2.39 M/mm3 (4.6-6.2); White Blood Count 6.7 K/mm3 (4.4-11.0)
[2024-04-19] MEDS: Gabapentin 600 MG Tablet PO ×5 (06:17→21:31)
[2024-04-19] MEDS: Acetaminophen 500 MG Tablet 1000 MG PO ×3 (06:17→21:31)
[2024-04-19] MEDS: Mupirocin Ointment 22gm Tube 1 APPLIC TOPICAL ×3 (06:17→21:33)
[2024-04-19] MEDS: traMADol 50 MG Tablet PO ×4 (06:17→21:29)
[2024-04-19 06:27] LABS: Differential Indicated MANUAL DIFF
[2024-04-19 06:48] LABS: Anion Gap 6 (5-15); BUN 14 mg/dL (7-18); BUN/Creat Ratio 24.8 RATIO (10-20); Calcium,Total 8.1 mg/dL (8.5-10.1); Chloride 97 mmol/L (98-107); Creatinine, Serum 0.56 mg/dL (0.70-1.30); EST Glomerular Filtration Rate 152 mL/min (>60); Est Glom Filt Rate - Afr Amer 184 mL/min (>60); Estimated Creatinine Clearance 121.72 ml/min; Glucose 131 mg/dL (74-106); Sodium Level 132 mmol/L (136-145)
--- NOTE | 2024-04-19 07:50 | PN_ITS ---
Subjective Subjective Afebrile Blood pressure is 118/74 with a heart rate of 106. Maintaining appropriate oxygen saturation on room air. Admitted to TCU yesterday for debility due to hip fracture followed by lumbar surgery for acute fracture with disc protrusion and hemorrhage causing severe canal stenosis. The surgery was 6 hours and he was prone. Following surgery he developed a sore on his chin (possibly due to pressure injury and then impetigo) He was started on Keflex on 04/17/2024 and has now developed a rash over the extremities and back which is pruritic. He was transitioned to Doxycycline at admission to TCU. All lab from today was personally reviewed. White blood cell count is 6.7 and no differential was done. Hemoglobin is 7.8 and platelets are within normal limits. Hemoglobin was 10.6 on 04/12/2024. Sodium is low at 132 and the chloride is low at 97. Potassium is normal at 4.0. The BUN is 14 with a stable creatinine at 0.56. Calcium is low at 8.1. Alert and appropriate He has a macular papular rash which is patchy on the arms and legs and back. It is pruritic but, he tells me that the hydrocortisone cream helps with the itching. The chin has a darkened area and there are openings in the skin. There is DC that is somewhat thick and yellow. There is no odor. There is some erythema. Denies lightheadedness. Impressions: 1. Drug eruption-most likely secondary to Keflex 2. Hyponatremia/hypochloremia-check a urine sodium, urine osmolality and serum osmolality to determine the etiology of the hyponatremia, possibly SIADH versus dehydration 3. Culture the drainage from the chin and also do a MRSA PCR on the drainage 4. Continue hydrocortisone cream as needed and start Claritin 10 mg daily 5. Acute blood loss anemia with a hemoglobin of 7.8 Recheck an HH in 1-2 days Transfuse for HGB 7 or less and for symptomatic anemia 6. Hypocalcemia check an albumin to calculate the calcium corrected for hypoalbuminemia Objective Data Objective Data Vital Signs: Vital Signs Temp Pulse Resp BP Pulse Ox O2 Del Method 99.2 F H 106 H 16 118/74 98 Room Air 04/18/24 17:01 04/18/24 17:01 04/18/24 17:01 04/18/24 17:01 04/18/24 17:01 04/18/24 21:00 Oxygen Delivery Method Room Air Weight: 264 lb 12.8 oz Body Mass Index (BMI) 32.9 Intake & Output: Intake and Output for Last 24 Hours 04/17/24 04/18/24 04/19/24 23:59 23:59 23:59 Intake Total 120 / 120 Output Total 500 / 500 Balance -380 / -380 Lab / Micro Data 04/19/24 05:18 04/19/24 05:18 Labs: Laboratory Results - last 24 hr 04/19/24 05:18: WBC 6.7, RBC 2.39 L, Hgb 7.8 L, Hct 23.5 L, MCV 98.3 H, MCH 32.6 H, MCHC 33.2, RDW Std Deviation 50.6 H, RDW Coeff of Roseann 14.2, Plt Count 227, MPV 10.5, Neut % (Auto) Not Reportable, Sodium 132 L, Potassium 4.0, Chloride 97 L, Carbon Dioxide 29.0, Anion Gap 6, BUN 14, Creatinine 0.56 L, Estim Creat Clear Calc 121.72, Est GFR (MDRD) Af Amer 184, Est GFR (MDRD) Non-Af 152, B UN/Creatinine Ratio 24.8 H, Glucose 131 H, Calcium 8.1 L Assessment & Plan Assessment/Plan (1) Hypocalcemia: (2) Hyponatremia: (3) Acute blood loss anemia: (4) Drug rash: (5) Cellulitis: PLAN: Plan 1. Check a serum albumin to calculate the true Calcium 2. Urine sodium, Urine osmolality and serum osmolality for hyponatremia. 3. It is likely the Kelfex that caused the rash - He has only had 1 dose of Doxy Will continue Doxy. 4. Culture the drainage from the chin and do a MRSA PCR on the DC also. Charges/Coding Visit Charges Inpatient E&M: 00719 SNF Subs L1
[2024-04-19 08:36] LABS: Eosinophil 3 % (0-5); Lymphocyte 8 % (19-41); Metamyelocyte 3 % (0-1); Monocyte 3 % (0-10); Myelocyte 2 % (0-0); Neutrophil-Band 1 % (0-5); Neutrophil-Segmented 80 % (47-70); Total Cells Counted 100 (MANUAL DIFF)
[2024-04-19 08:38] LABS: Absolute Neutrophil Count 5.4 X10^3/uL (2.0-7.7)
[2024-04-19 08:39] LABS: Absolute Lymphocyte Count 0.54 X10^3/uL (0.83-4.51)
[2024-04-19 08:40] LABS: Anisocytosis 1+; Platelet Estimate ADEQUATE (ADEQ); Polychromasia 1+
[2024-04-19 09:25] LABS: Albumin, Serum 1.8 g/dL (3.2-5.0)
[2024-04-19] MEDS: Senna/Docusate Sodium 1 Tablet 2 TABLET PO ×2 (10:10→21:32)
[2024-04-19] MEDS: Tamsulosin HCl 0.4 MG Capsule PO (10:11)
[2024-04-19] MEDS: Famotidine 20 MG Tablet 40 MG PO (10:11)
[2024-04-19] MEDS: Loratadine 10 MG Tablet PO (10:11)
[2024-04-19] MEDS: Finasteride 5 MG Tablet PO (10:11)
[2024-04-19] MEDS: Polyethylene Glycol 3350 17 GM PACKET PO (10:11)
[2024-04-19] MEDS: Multivitamins,Therapeutic Tablet 1 TABLET PO (10:11)
[2024-04-19] MEDS: Doxycycline 100 MG CAPSULE PO ×2 (10:11→21:33)
[2024-04-19] MEDS: Tuberculin,Purif.prot.deriv. 50 TU/ML Vial 0.1 ML ID (10:12)
[2024-04-19] MEDS: Menthol/Lanolin/Calamine/Znox 113 GM Tube 1 APPLIC TOPICAL ×2 (10:25→21:37)
--- NOTE | 2024-04-19 11:51 | NURSING ---
Left VM with Kobi Hernandez requesting a return call about renting a mattress for resident.
[2024-04-19 13:06] LABS: Osmolality, Serum 281 mOsm/KG (280-301)
[2024-04-19 13:37] LABS: Urine Sodium 21 mmol/L (Not Establ.)
[2024-04-19 14:31] LABS: Pathologist Review Reviewed
[2024-04-19] MEDS: Magnesium Citrate 300 ML PO (14:59)
[2024-04-19 15:24] LABS: Osmolality, Urine 325 mOsm/KG
--- NOTE | 2024-04-19 15:59 | NURSING ---
Noemy for Dr Lucas's office asking if hip donna could be removed. Waiting for return call.
[2024-04-19 16:00] VITALS: BP 135/69; PULSE 99; RESP 16; TEMP 37.1; O2SAT 98
--- NOTE | 2024-04-19 16:36 | NURSING ---
Dr. Lucas's office return call. N.O. received to remove donna and would like repeat x-rays of Left hip. Dr. Lucas will be in next week to f/u with pt. Orders read back.
--- NOTE | 2024-04-19 16:48 | CASEMGMT ---
Social Work SW met with patient and at bedside. No changes to assessment. Educated to admitting on day of Medicare benefit. Confirmed pt wishes to complete advanced directives. SW to complete prior to DC. Will continue to follow for DC planning. Mackenzie Potter, [employer]
[2024-04-19 17:59] LABS: M R Staph aureus DNA By PCR Negative (Negative); Probe Check PASS; Specimen Processing Control PASS; Staph aureus DNA By PCR NEGATIVE (Negative)
--- NOTE | 2024-04-19 18:49 | PHA.CONS_ITS ---
Documented by User: Cally Villalobos 04/19/24 19:26 TCU RX Drug Regimen Review Subjective/Objective Subjective/Objective Subjective: TCU Admission. 69 YOM TCU resident sent to ER due to back pain. Hospitalized for L2 fracture, herniate lumbar disc, underwent T11 - L4 posterior spinal fusion, L2 laminectomy decompression 04/13/2024, complicated by postoperative anemia, hyponatremia, recent left hip fracture, underwent left hip ORIF cephalomedullary gamma nailing 04/06/2024. Admitted to TCU with debility for strengthening and rehabilitation. Objective: Allergies cephalexin (From Keflex) Allergy (Intermediate, Verified 04/19/24 02:34) Rash Sulfa (Sulfonamide Antibiotics) Allergy (Verified 04/12/24 17:36) Hives Current Medications Generic Name Dose Route Start Last Admin Trade Name Freq PRN Reason Stop Dose Admin Acetaminophen 1,000 mg 04/18/24 22:00 04/19/24 14:05 Acetaminophen 500 Mg Tablet PO 1,000 mg Q8 SINA Administration Calamine/Phenol 1 applic 04/18/24 22:00 04/19/24 10:25 Menthol/Lanolin/Calamine/Znox 113 Gm Tube TOPICAL 1 applic BID SINA Administration Protocol Cyclobenzaprine HCl 5 mg 04/18/24 17:24 04/18/24 21:07 Cyclobenzaprine Hcl 5 Mg Tablet PO 5 mg TID PRN PRN Administration muscle relax Doxycycline Monohydrate 100 mg 04/18/24 22:55 04/19/24 10:11 Doxycycline 100 Mg Capsule PO 04/25/24 22:56 100 mg BID SINA Administration Famotidine 40 mg 04/19/24 10:00 04/19/24 10:11 Famotidine 20 Mg Tablet PO 40 mg DAILY SINA Administration Finasteride 5 mg 04/19/24 10:00 04/19/24 10:11 Finasteride 5 Mg Tablet PO 5 mg DAILY SINA Administration Gabapentin 600 mg 04/18/24 18:00 04/19/24 17:14 Gabapentin 600 Mg Tablet PO 600 mg 5X/DAY SINA Administration Hydrocortisone 1 applic 04/18/24 22:55 04/18/24 23:20 Hydrocortisone 2.5% Crm TOPICAL 1 applic BID PRN SINA Administration Protocol Loratadine 10 mg 04/19/24 10:00 04/19/24 10:11 Loratadine 10 Mg Tablet PO 10 mg DAILY SINA Administration Magnesium Citrate 300 ml 04/18/24 21:06 04/19/24 14:59 Magnesium Citrate 300 Ml PO 300 ml DAILY PRN Administration Constipation Multivitamins 1 tablet 04/19/24 08:00 04/19/24 10:11 Multivitamins,Therapeutic Tablet PO 1 tablet BREAKFAST SINA Administration Mupirocin 1 applic 04/18/24 22:00 04/19/24 14:06 Mupirocin Ointment 22gm Tube TOPICAL 04/21/24 06:01 1 applic TID SINA Administration Protocol Oxycodone HCl 5 - 10 mg 04/18/24 17:24 04/19/24 10:14 Oxycodone 5 Mg Tablet PO 10 mg Q4H PRN PRN Administration Pain Score 1-10 Polyethylene Glycol 17 gm 04/19/24 10:00 04/19/24 10:11 Polyethylene Glycol 3350 17 Gm Packet PO 17 gm DAILY SINA Administration Senna/Docusate Sodium 2 tablet 04/18/24 22:00 04/19/24 10:10 Senna/Docusate Sodium 1 Tablet PO 2 tablet BID SINA Administration Tamsulosin HCl 0.4 mg 04/19/24 10:00 04/19/24 10:11 Tamsulosin Hcl 0.4 Mg Capsule PO 0.4 mg DAILY SINA Administration Tramadol HCl 50 mg 04/18/24 22:00 04/19/24 16:16 Tramadol 50 Mg Tablet PO 50 mg 4X/DAY SINA Administration Tuberculin PPD 0.1 ml 04/26/24 10:00 Tuberculin,Purif.Prot.Deriv. 50 Tu/Ml Vial ID 04/26/24 10:01 X1 ONE Problem List Cellulitis (Acute) Drug rash (Acute) Acute blood loss anemia (Acute) Hyponatremia (Acute) Hypocalcemia (Acute) Muscle spasm (Acute) Insomnia (Acute) Herniated lumbar intervertebral disc (Acute) Closed L2 vertebral fracture (Acute) BPH (benign prostatic hyperplasia) (Acute) GERD (gastroesophageal reflux disease) (Acute) Debility (Acute) Vital Signs Temp Pulse Resp BP Pulse Ox O2 Del Method 98.8 F 99 16 135/69 H 98 Room Air 04/19/24 16:00 04/19/24 16:00 04/19/24 16:00 04/19/24 16:00 04/19/24 16:00 04/19/24 16:00 Oxygen Delivery Method Room Air Weight: 120.111 kg Body Mass Index (BMI) 32.9 Sodium 132 mmol/L (136-145) L 04/19/24 05:18 Potassium 4.0 mmol/L (3.5-5.1) 04/19/24 05:18 Chloride 97 mmol/L (98-107) L 04/19/24 05:18 Carbon Dioxide 29.0 mmol/L (21.0-32.0) 04/19/24 05:18 Anion Gap 6 (5-15) 04/19/24 05:18 BUN 14 mg/dL (7-18) 04/19/24 05:18 Creatinine 0.56 mg/dL (0.70-1.30) L 04/19/24 05:18 Est GFR (MDRD) Af Amer 184 mL/min (>60) 04/19/24 05:18 Est GFR (MDRD) Non-Af 152 mL/min (>60) 04/19/24 05:18 BUN/Creatinine Ratio 24.8 RATIO (10-20) H 04/19/24 05:18 Glucose 131 mg/dL (74-106) H 04/19/24 05:18 Assessment/Plan: 1. Pain: acetaminophen 1000mg PO Q8, tramadol 50mg PO 4x/day and oxycodone 5- 10mg PO Q4H PRN pain 1-10. Resident has had 4 doses of oxycodone for pain scores of 7-10 in the back. Please continue to monitor for increased pain, PRN usage, constipation, respiratory depression, renal function, confusion, falls/fractures (John). 2. Bowel: Miralax 17gm PO daily, senna/docusate 2T PO BID and magnesium citrate 300mL PO daily PRN constipation. Resident had a dose of magnesium citrate today. Please continue to monitor for constipation, diarrhea and PRN usage. Last documented bowel movement was 04/14. 3. Impetigo: doxycycline 100mg PO BID thru 04/25/24. Please continue to monitor for S/S of infection, diarrhea and upset stomach. 4. Chin abrasion: mupirocin topical TID thru 04/21/24. Please continue to mo nitor for S/S of infection. 5. Muscle spasm: cyclobenzaprine 5mg PO TID PRN muscle relax. Resident has had 1 dose so far. Please continue to monitor for PRN usage, dementia (BEERs), anticholinergic side effects (BEERs) and muscle spasms. 6. BPH: finasteride 5mg PO daily and tamsulosin 0.4mg PO daily. Please continue to monitor for S/S of BPH, BP (last 135/69). 7. Nutrition: multivitamin 1T PO daily. Please continue to monitor. 8. Skin irritation: calmoseptine topical BID. Please continue to monitor. 9. Rash: loratadine 10mg PO daily and hydrocortisone 2.5% cream topical BID. Please continue to monitor for improvement of itching and rash, renal function. Assessment/Plan for indications treated with psychotropic medications: 1. Lumbar radiculopathy: gabapentin 600mg PO 5x/day. GDR not appropriate as this medication is being used for pain. Please continue to monitor for S/S of confusion, renal function, falls/fractures (BEERs). Medical chart and medication regimen reviewed. The following medication irregularities or issues were identified: None Date Date of Note: 04/19/24 Documented by User: Dr. Fernando Mejia MD 04/24/24 07:22 TCU RX Drug Regimen Review Provider Comments Provider responsibility Provider Comments to Recommendations by Pharmacy Agree
[2024-04-19] MEDS: cycloBENZAPRine HCl 5 MG TABLET PO (21:34)
--- NOTE | 2024-04-19 23:10 | NURSING ---
[place] removed from left hip incisions x 3. Patient tolerated well. Proximal incision with a small amount of drainage. ABD applied.
[2024-04-20] MEDS: Gabapentin 600 MG Tablet PO ×5 (05:50→22:06)
[2024-04-20] MEDS: traMADol 50 MG Tablet PO ×4 (05:50→22:06)
[2024-04-20] MEDS: Acetaminophen 500 MG Tablet 1000 MG PO ×3 (05:51→22:07)
[2024-04-20] MEDS: cycloBENZAPRine HCl 5 MG TABLET PO (05:51)
[2024-04-20] MEDS: Mupirocin Ointment 22gm Tube 1 APPLIC TOPICAL ×3 (05:55→22:06)
--- NOTE | 2024-04-20 07:41 | NURSING ---
Patient trying to void, unsuccessful. Bladder scanned, result was >597cc. Straight cath'd, result was 650cc. Will continue to monitor.
[2024-04-20] MEDS: Famotidine 20 MG Tablet 40 MG PO (08:11)
[2024-04-20] MEDS: Finasteride 5 MG Tablet PO (08:11)
[2024-04-20] MEDS: Polyethylene Glycol 3350 17 GM PACKET PO (08:11)
[2024-04-20] MEDS: Senna/Docusate Sodium 1 Tablet 2 TABLET PO (08:11)
[2024-04-20] MEDS: Multivitamins,Therapeutic Tablet 1 TABLET PO (08:12)
[2024-04-20] MEDS: Doxycycline 100 MG CAPSULE PO ×2 (08:12→22:07)
[2024-04-20] MEDS: oxyCODONE 5 MG Tablet PO ×3 (08:13→20:42)
[2024-04-20] MEDS: Tamsulosin HCl 0.4 MG Capsule PO (08:13)
[2024-04-20] MEDS: Loratadine 10 MG Tablet PO (08:13)
[2024-04-20] MEDS: Menthol/Lanolin/Calamine/Znox 113 GM Tube 1 APPLIC TOPICAL (08:17)
[2024-04-20 16:00] VITALS: BP 123/78; PULSE 114; RESP 16; TEMP 36.8; O2SAT 96
--- NOTE | 2024-04-20 20:52 | NURSING ---
Head to toe assessment completed at this time, patient A&Ox4, declines to roll for visualization of back and bilat buttocks, states It hurts when I roll, I just don't want to do it now. feelings validated. Educated on importance of assessing skin daily to address compromised skin integrity, verbalizes understanding. Patient states will attempt to roll at a later time. PRN Oxy administered per request. No distress observed or reported. Call light in reach.
[2024-04-20 22:00] VITALS: PULSE 93; RESP 16; O2SAT 99
[2024-04-21] MEDS: oxyCODONE 5 MG Tablet PO ×4 (02:07→18:01)
[2024-04-21] MEDS: traMADol 50 MG Tablet PO ×4 (05:49→21:40)
[2024-04-21] MEDS: Acetaminophen 500 MG Tablet 1000 MG PO ×3 (05:50→21:41)
[2024-04-21] MEDS: Gabapentin 600 MG Tablet PO ×5 (05:50→21:40)
[2024-04-21] MEDS: Mupirocin Ointment 22gm Tube 1 APPLIC TOPICAL (05:50)
[2024-04-21] MEDS: Multivitamins,Therapeutic Tablet 1 TABLET PO (07:43)
[2024-04-21] MEDS: Menthol/Lanolin/Calamine/Znox 113 GM Tube 1 APPLIC TOPICAL ×2 (09:27→21:42)
[2024-04-21] MEDS: Loratadine 10 MG Tablet PO (09:27)
[2024-04-21] MEDS: Doxycycline 100 MG CAPSULE PO ×2 (09:27→21:41)
[2024-04-21] MEDS: Tamsulosin HCl 0.4 MG Capsule PO (09:27)
[2024-04-21] MEDS: Famotidine 20 MG Tablet 40 MG PO (09:28)
[2024-04-21] MEDS: Finasteride 5 MG Tablet PO (09:29)
[2024-04-21] MEDS: Senna/Docusate Sodium 1 Tablet 2 TABLET PO (09:29)
--- NOTE | 2024-04-21 11:52 | CASEMGMT ---
Social Work SW spoke with pt to follow up on completing advanced directives. When the question came to who pt would like to name as guardian between his two dtrs, pt could not decide and requested to pause completion of documents until she discusses with . SW agreed and requested pt notify this worker when ready for completion. Pt agreed. Mackenzie Potter, JAMAAL DOS SANTOSW
--- NOTE | 2024-04-21 12:02 | NURSING ---
message left with surgeon regarding TLSO brace, pt and therapy having difficulty getting brace on d/t use of reuben. staff able to get brace on once up in chair after use of reuben to transfer from bed to chair. awaiting return call to see if this is an issue.
[2024-04-21 15:35] VITALS: BP 121/66; PULSE 110; RESP 18; TEMP 37.1; O2SAT 94
[2024-04-21 20:00] VITALS: PULSE 104; RESP 18; O2SAT 95
[2024-04-21] MEDS: cycloBENZAPRine HCl 5 MG TABLET PO (22:05)
[2024-04-22] MEDS: oxyCODONE 5 MG Tablet PO ×4 (04:08→20:13)
[2024-04-22] MEDS: Acetaminophen 500 MG Tablet 1000 MG PO ×3 (05:35→21:14)
[2024-04-22] MEDS: Gabapentin 600 MG Tablet PO ×5 (05:36→21:12)
[2024-04-22] MEDS: traMADol 50 MG Tablet PO ×4 (05:36→21:12)
--- NOTE | 2024-04-22 07:20 | NURSING ---
Patient educated on order for no prolonged bedrest per surgeon, encouraged patient to comply with order to promote healing and outcome, patient verbalizes understanding, expresses continued back and hip pain with movement but it's getting better than before my surgery. Patient states will try to get up in my chair for meals. Denies requests. No distress observed or reported. Call light in reach.
[2024-04-22] MEDS: Multivitamins,Therapeutic Tablet 1 TABLET PO (09:50)
[2024-04-22] MEDS: Famotidine 20 MG Tablet 40 MG PO (09:50)
[2024-04-22] MEDS: Tamsulosin HCl 0.4 MG Capsule PO (09:50)
[2024-04-22] MEDS: Doxycycline 100 MG CAPSULE PO ×2 (09:50→21:13)
[2024-04-22] MEDS: Menthol/Lanolin/Calamine/Znox 113 GM Tube 1 APPLIC TOPICAL ×2 (09:51→21:14)
[2024-04-22] MEDS: Finasteride 5 MG Tablet PO (09:51)
[2024-04-22 11:19] VITALS: BP 101/50; PULSE 98; RESP 18; TEMP 36.4; O2SAT 95
[2024-04-22 13:24] LABS: Hematocrit 26.1 % (40-54); Hemoglobin 8.5 g/dL (13.0-16.5); Mean Corp Hgb Conc 32.6 g/dL (32-36); Mean Corpuscular Hgb 32.3 pg (27.0-32.0); Mean Corpuscular Volume 99.2 fL (80-94); Mean Platelet Vol. 10.1 fl (6.2-12.0); Platelet Count 259 K/mm3 (150-450); RBC Distribution Width CV 15.1 % (11.6-14.6); RBC Distribution Width SD 53.6 fl (35.1-43.9); Red Blood Count 2.63 M/mm3 (4.6-6.2)
[2024-04-22 13:48] LABS: Anion Gap 5 (5-15); BUN 18 mg/dL (7-18); BUN/Creat Ratio 31.9 RATIO (10-20); Calcium,Total 8.3 mg/dL (8.5-10.1); Chloride 98 mmol/L (98-107); Creatinine, Serum 0.56 mg/dL (0.70-1.30); EST Glomerular Filtration Rate 153 mL/min (>60); Est Glom Filt Rate - Afr Amer 185 mL/min (>60); Estimated Creatinine Clearance 121.72 ml/min; Glucose 157 mg/dL (74-106); Potassium 4.2 mmol/L (3.5-5.1); Sodium Level 133 mmol/L (136-145)
[2024-04-22] MEDS: cycloBENZAPRine HCl 5 MG TABLET PO (18:06)
[2024-04-22] MEDS: Senna/Docusate Sodium 1 Tablet 2 TABLET PO (21:13)
[2024-04-22 21:40] VITALS: PULSE 78; RESP 16; O2SAT 96
[2024-04-23] MEDS: Loratadine 10 MG Tablet PO (00:05)
[2024-04-23] MEDS: oxyCODONE 5 MG Tablet PO ×3 (02:54→16:22)
[2024-04-23] MEDS: cycloBENZAPRine HCl 5 MG TABLET PO ×2 (03:07→21:15)
[2024-04-23] MEDS: traMADol 50 MG Tablet PO ×4 (05:41→21:14)
[2024-04-23] MEDS: Gabapentin 600 MG Tablet PO ×5 (05:41→21:14)
[2024-04-23] MEDS: Acetaminophen 500 MG Tablet 1000 MG PO ×3 (05:41→21:14)
[2024-04-23] MEDS: Tamsulosin HCl 0.4 MG Capsule PO (09:12)
[2024-04-23] MEDS: Menthol/Lanolin/Calamine/Znox 113 GM Tube 1 APPLIC TOPICAL ×2 (09:12→21:15)
[2024-04-23] MEDS: Doxycycline 100 MG CAPSULE PO ×2 (09:13→21:15)
[2024-04-23] MEDS: Multivitamins,Therapeutic Tablet 1 TABLET PO (09:13)
[2024-04-23] MEDS: Famotidine 20 MG Tablet 40 MG PO (09:13)
[2024-04-23] MEDS: Finasteride 5 MG Tablet PO (09:14)
[2024-04-23] MEDS: Senna/Docusate Sodium 1 Tablet 2 TABLET PO ×2 (09:14→21:14)
[2024-04-23 09:23] VITALS: BP 113/59; PULSE 82; O2SAT 94
[2024-04-23 13:30] VITALS: PULSE 82; RESP 18; O2SAT 96
--- NOTE | 2024-04-23 13:44 | NURSING ---
UP DATED PT AND FAMILY THAT A STAFF MEMBER TESTED POSITIVE FOR COVID.
[2024-04-24] MEDS: oxyCODONE 5 MG Tablet PO (00:55)
[2024-04-24] MEDS: Acetaminophen 500 MG Tablet 1000 MG PO ×3 (05:28→21:50)
[2024-04-24] MEDS: Gabapentin 600 MG Tablet PO ×5 (05:29→21:49)
[2024-04-24] MEDS: traMADol 50 MG Tablet PO ×4 (05:29→21:49)
[2024-04-24 07:57] LABS: Hematocrit 24.9 % (40-54); Hemoglobin 7.9 g/dL (13.0-16.5); Mean Corp Hgb Conc 31.7 g/dL (32-36); Mean Corpuscular Hgb 31.3 pg (27.0-32.0); Mean Corpuscular Volume 98.8 fL (80-94); Mean Platelet Vol. 9.7 fl (6.2-12.0); POSITIVE COUNT YES; POSITIVE MORPHOLOGY YES; Platelet Count 235 K/mm3 (150-450); RBC Distribution Width CV 15.3 % (11.6-14.6); RBC Distribution Width SD 54.5 fl (35.1-43.9); Red Blood Count 2.52 M/mm3 (4.6-6.2); White Blood Count 6.7 K/mm3 (4.4-11.0)
[2024-04-24 08:03] LABS: Differential Indicated MANUAL DIFF
[2024-04-24 09:27] LABS: Lymphocyte 5 % (19-41); Metamyelocyte 9 % (0-1); Monocyte 3 % (0-10); Myelocyte 1 % (0-0); Neutrophil-Band 3 % (0-5); Neutrophil-Segmented 79 % (47-70); Total Cells Counted 100 (MANUAL DIFF)
[2024-04-24 09:28] LABS: Absolute Neutrophil Count 5.5 X10^3/uL (2.0-7.7); Platelet Estimate ADEQUATE (ADEQ); Red Cell Morphology NORM C+C NORMAL (NORM C&C)
[2024-04-24 09:29] LABS: Absolute Lymphocyte Count 0.33 X10^3/uL (0.83-4.51); Lymphocyte # 0.33 X10^3/ul (0.83-4.51)
[2024-04-24] MEDS: Senna/Docusate Sodium 1 Tablet 2 TABLET PO (10:09)
[2024-04-24] MEDS: Multivitamins,Therapeutic Tablet 1 TABLET PO (10:09)
[2024-04-24] MEDS: Tamsulosin HCl 0.4 MG Capsule PO (10:09)
[2024-04-24] MEDS: Finasteride 5 MG Tablet PO (10:09)
[2024-04-24] MEDS: Doxycycline 100 MG CAPSULE PO ×2 (10:09→21:51)
[2024-04-24] MEDS: Menthol/Lanolin/Calamine/Znox 113 GM Tube 1 APPLIC TOPICAL ×2 (10:09→21:52)
[2024-04-24] MEDS: Famotidine 20 MG Tablet 40 MG PO (10:09)
[2024-04-24] MEDS: Polyethylene Glycol 3350 17 GM PACKET PO (10:09)
--- NOTE | 2024-04-24 10:45 | RAD_ITS ---
STUDY: X-RAY - PELVIS AND LEFT HIP REASON FOR EXAM: Male, 69 years old. Diffuse pelvic pain TECHNIQUE: 3 views of the pelvis and hip. COMPARISON: 04/09/2024 FINDINGS: There is a non-specific bowel gas pattern. Normal visualized soft tissue structures. There is diffuse demineralization of the osseous structures. There is narrowing with cortical sclerosis and osteophyte formation of the sacroiliac joint consistent with degenerative osteoarthritic changes. Normal bilateral superior and inferior pubic rami. Normal pubic symphysis. Normal bilateral ischial tuberosities. Surgical hardware in the left femur free of complication. A previously noted fracture in the proximal left femur has undergone some healing since the previous study but complete osseous union has yet to occur as there is still evidence of fracture lucency and cortical irregularity. Continued follow-up recommended to assure osseous union. Alignment at the fracture site remains anatomic. Age consistent bilateral hip arthrosis. No demonstrated right hip fracture or suspicious osseous lesion. RAD/HIP, UNI W/ Pelvis 2-3 Views IMPRESSION: Progressive but not yet complete healing of a previously noted, surgically reduced left femoral fracture. 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
[2024-04-24] MEDS: cycloBENZAPRine HCl 5 MG TABLET PO ×2 (13:07→21:50)
--- NOTE | 2024-04-24 13:54 | NURSING ---
Call back from Kobi Hernandez, pressure relieving mattress ordered for resident, confirmation number [id number]. Tech will call with delivery time.
[2024-04-24 13:57] LABS: Pathologist Review Reviewed
[2024-04-24 14:57] VITALS: BP 119/73; PULSE 114; RESP 24; TEMP 35.5; O2SAT 95
--- NOTE | 2024-04-24 15:17 | PN.ORTHO_ITS ---
Subjective Subjective Patient is approximately 2 to 3 weeks status post left hip gamma nailing for intertrochanteric fracture. In the interim, patient underwent multilevel thoracolumbar fusion for upper lumbar extension fracture at [facility]. He has had a tough time with mobilization due to multiple injuries and surgeries. He says that his left hip donna were removed in [place]. He denies any discharge from the wounds. Objective Data Objective Data Vital Signs: Vital Signs Temp Pulse Resp BP Pulse Ox O2 Del Method 96 F L 114 H 24 H 119/73 95 Room Air 04/24/24 14:57 04/24/24 14:57 04/24/24 14:57 04/24/24 14:57 04/24/24 14:57 04/24/24 14:57 Oxygen Delivery Method Room Air Weight: 264 lb 12.791 oz Body Mass Index (BMI) 32.9 Intake & Output: Intake and Output for Last 24 Hours 04/22/24 04/23/24 04/24/24 23:59 23:59 23:59 Intake Total 1200 / 1200 1220 / 1220 780 / 780 Output Total 300 / 300 350 / 350 420 / 420 Balance 900 / 900 870 / 870 360 / 360 Lab / Micro Data 04/24/24 07:46 04/22/24 13:09 Labs: Laboratory Results - last 24 hr 04/24/24 07:46: WBC 6.7, RBC 2.52 L, Hgb 7.9 L, Hct 24.9 L, MCV 98.8 H, MCH 31.3, MCHC 31.7 L, RDW Std Deviation 54.5 H, RDW Coeff of Roseann 15.3 H, Plt Count 235, MPV 9.7, Neut % (Auto) Not Reportable, Absolute Neuts (auto) 5.5, Absolute Lymphs (auto) 0.33 L, Total Counted 100, Neutrophils % (Manual) 79 H, Band Neutrophils % 3, Lymphocytes % (Manual) 5 L, Monocytes % (Manual) 3, M etamyelocytes % 9 H, Myelocytes % 1 H, Diff Path Review Reviewed, Platelet Estimate ADEQUATE, RBC Morphology NORM C+C Micro: Microbiology 04/24/24 05:30 Nasal Secretion SARS-CoV-2 Antigen (Rapid) - Final 04/19/24 11:55 Wound - Face Gram Stain - Final 04/19/24 11:55 Wound - Face Wound Culture - Final Presumptive C albicans Physical Exam Narrative Patient seated on the recliner. Lower incisions well-healed. Upper incisions could not be assessed because of patient's inability to move. Distal neurovascular exam is intact. Patient has severe limitation of active movement around the knee and hip on the left side, likely stiffness and long-term deconditioning versus neurologic injury from the extension fracture. Assessment & Plan Assessment/Plan (1) Fracture, intertrochanteric, left femur: QUALIFIERS: Encounter type: initial encounter Fracture type: c losed Fracture alignment: displaced Qualified Code(s): S72.142A - Displaced intertrochanteric fracture of left femur, initial encounter for closed fracture PLAN: Plan Follow-up x-rays were obtained today of the left hip which shows hardware in good position with good maintenance of reduction and alignment. Explained to him that his follow-up x-rays look good. He should continue with mobility exercises with physical therapy. Encouraged static quadriceps and hamstring reputations while laying in bed. He should continue with physical therapy as appropriate. He will now see me back in clinic for 3-month follow-up in June for his left hip gamma nailing. He should maintain follow-up with the spine surgeon Ron for his recent surgery. Patient was in agreement.
[2024-04-24] MEDS: COVID VAC 24-25 (12UP)(MODERNA)/PF 50 MCG/0.5 ML SYRINGE IM (17:06)
[2024-04-24 23:00] VITALS: RESP 16; O2SAT 95
[2024-04-25] MEDS: oxyCODONE 5 MG Tablet PO ×2 (02:49→10:44)
[2024-04-25] MEDS: traMADol 50 MG Tablet PO ×4 (05:45→21:06)
[2024-04-25] MEDS: cycloBENZAPRine HCl 5 MG TABLET PO ×2 (05:45→21:07)
[2024-04-25] MEDS: Gabapentin 600 MG Tablet PO ×5 (05:45→21:06)
[2024-04-25] MEDS: Acetaminophen 500 MG Tablet 1000 MG PO ×3 (05:46→21:08)
[2024-04-25] MEDS: Senna/Docusate Sodium 1 Tablet 2 TABLET PO ×2 (09:01→21:07)
[2024-04-25] MEDS: Tamsulosin HCl 0.4 MG Capsule PO (09:02)
[2024-04-25] MEDS: Doxycycline 100 MG CAPSULE PO ×2 (09:02→21:19)
[2024-04-25] MEDS: Famotidine 20 MG Tablet 40 MG PO (09:02)
[2024-04-25] MEDS: Menthol/Lanolin/Calamine/Znox 113 GM Tube 1 APPLIC TOPICAL ×2 (09:03→21:19)
[2024-04-25] MEDS: Polyethylene Glycol 3350 17 GM PACKET PO (09:03)
[2024-04-25] MEDS: Finasteride 5 MG Tablet PO (09:03)
[2024-04-25] MEDS: Multivitamins,Therapeutic Tablet 1 TABLET PO (09:03)
--- NOTE | 2024-04-25 11:58 | NURSING ---
Addendum entered by Amaris Ireland 04/25/24 12:03: Updated resident and . Original Note: Dr. Merritt's office asking about xrays, said they can have done before visit if resident arrives earlier. Called physician's transport, they can transport at 0700. Updated Dr. Merritt's office that resident will arrive early for xrays.
[2024-04-25 16:00] VITALS: BP 129/55; PULSE 81; RESP 16; TEMP 36.5; O2SAT 98
--- NOTE | 2024-04-25 17:03 | CASEMGMT ---
Social Work SW presented to room to complete MDS assessment. present and pt/ both asked questions pertaining to HCPOA and guardianship. SW answered questions at length to pt/'s understanding. Pt was drowsy and this worker suggested pt be more alert and finalize his wishes with his prior to SW completing advanced directives. pt and agreed. Pt agreed to remaining for MDS questions. BIMS () and PHQ-9 (03/19). Initially, pt answered 'several days' to feeling down or depressed, however, became tearful with that answer. SW offered safe space for pt to share his feelings, but pt denied discussion, I don't want to talk about it right now. SW respected wish and proceed with additional questions. After assessment was completed, interjected with encouragement to pt to share his feelings with this worker, stating [pt] has been feeling like this for some time and asked pt if it was ready to start an antidepressant. Pt became emotional and began to express feelings of loss of independence, fear with the unknown, being out of control, all in relation to current level of care. Pt confirmed these feelings just began with reason for initial admission and heightened since surgery and lack of progress. SW provided supportive listening. Validated feelings. Without formality, SW reasked PHQ-9. Pt scored / and did agree to antidepressant. SW explained this worker is available for supportive visits throughout stay and will notify the Dr who will decide on medication appropriateness. Pt appreciative. Mackenzie Potter [employer]CTION [employer]
[2024-04-25 18:55] VITALS: BMI 32.3
[2024-04-25] MEDS: Mirtazapine 15 MG Tablet 7.5 MG PO (21:18)
[2024-04-26] MEDS: oxyCODONE 5 MG Tablet PO ×2 (01:19→13:07)
[2024-04-26] MEDS: Gabapentin 600 MG Tablet PO ×4 (05:55→22:20)
[2024-04-26] MEDS: Acetaminophen 500 MG Tablet 1000 MG PO ×3 (05:58→22:22)
[2024-04-26] MEDS: traMADol 50 MG Tablet PO ×4 (05:58→22:20)
--- NOTE | 2024-04-26 06:30 | NURSING ---
Old dressing removed from incision to mid/low back. Midline incision well-approximated w/ sutures intact. Scattered skin tears to periwound skin. No redness, warmth, or swelling noted. Two small skin tears w/ a scant amount of active, bloody drainage. Two ABDs applied and secured w/ paper tape. Resident tolerated well.
[2024-04-26 07:32] LABS: Hemoglobin 7.6 g/dL (13.0-16.5); Mean Corp Hgb Conc 30.4 g/dL (32-36); Mean Corpuscular Hgb 30.9 pg (27.0-32.0); Mean Corpuscular Volume 101.6 fL (80-94); Mean Platelet Vol. 10.1 fl (6.2-12.0); POSITIVE COUNT YES; POSITIVE MORPHOLOGY YES; Platelet Count 219 K/mm3 (150-450); RBC Distribution Width CV 15.5 % (11.6-14.6); RBC Distribution Width SD 57.1 fl (35.1-43.9); Red Blood Count 2.46 M/mm3 (4.6-6.2); White Blood Count 5.5 K/mm3 (4.4-11.0)
[2024-04-26 07:37] LABS: Differential Indicated MANUAL DIFF
[2024-04-26] MEDS: Tamsulosin HCl 0.4 MG Capsule PO (07:54)
[2024-04-26] MEDS: Finasteride 5 MG Tablet PO (07:54)
[2024-04-26] MEDS: Multivitamins,Therapeutic Tablet 1 TABLET PO (07:54)
[2024-04-26] MEDS: Famotidine 20 MG Tablet 40 MG PO (07:54)
[2024-04-26] MEDS: Menthol/Lanolin/Calamine/Znox 113 GM Tube 1 APPLIC TOPICAL ×2 (07:55→22:24)
[2024-04-26 08:34] LABS: Anion Gap 7 (5-15); BUN 15 mg/dL (7-18); BUN/Creat Ratio 32.9 RATIO (10-20); Calcium,Total 8.2 mg/dL (8.5-10.1); Chloride 103 mmol/L (98-107); Creatinine, Serum 0.46 mg/dL (0.70-1.30); EST Glomerular Filtration Rate 195 mL/min (>60); Est Glom Filt Rate - Afr Amer 236 mL/min (>60); Estimated Creatinine Clearance 121.72 ml/min; Glucose 101 mg/dL (74-106); Potassium 4.1 mmol/L (3.5-5.1); Sodium Level 137 mmol/L (136-145)
[2024-04-26 10:41] LABS: Eosinophil 5 % (0-5); Lymphocyte 17 % (19-41); Metamyelocyte 1 % (0-1); Monocyte 9 % (0-10); Myelocyte 3 % (0-0); Neutrophil-Band 3 % (0-5); Neutrophil-Segmented 62 % (47-70); Total Cells Counted 100 (MANUAL DIFF)
[2024-04-26 10:43] LABS: Platelet Estimate ADEQUATE (ADEQ)
[2024-04-26 10:44] LABS: Absolute Neutrophil Count 3.4 X10^3/uL (2.0-7.7); Polychromasia 1+
[2024-04-26 10:45] LABS: Absolute Lymphocyte Count 0.94 X10^3/uL (0.83-4.51)
[2024-04-26] MEDS: Tuberculin,Purif.prot.deriv. 50 TU/ML Vial 0.1 ML ID (12:18)
[2024-04-26] MEDS: cycloBENZAPRine HCl 5 MG TABLET PO ×2 (17:21→22:22)
--- NOTE | 2024-04-26 19:23 | NURSING ---
Dr. Merritt's office called regarding pt's f/u appt LVM with nursing line awaiting return call.
[2024-04-26 22:00] VITALS: PULSE 90
[2024-04-26] MEDS: Mirtazapine 15 MG Tablet 7.5 MG PO (22:20)
[2024-04-26] MEDS: Senna/Docusate Sodium 1 Tablet 2 TABLET PO (22:21)
[2024-04-27] MEDS: oxyCODONE 5 MG Tablet PO ×3 (03:47→19:50)
[2024-04-27] MEDS: traMADol 50 MG Tablet PO ×4 (07:01→21:36)
[2024-04-27] MEDS: Gabapentin 600 MG Tablet PO ×5 (07:01→21:36)
[2024-04-27] MEDS: Acetaminophen 500 MG Tablet 1000 MG PO ×3 (07:02→21:37)
--- NOTE | 2024-04-27 08:33 | NURSING ---
Order for blood transfusion. Infusion center scheduled for 04/28/24 @0815. Updated resident and (on speakerphone) in room.
[2024-04-27 08:46] VITALS: BP 110/62; PULSE 100; TEMP 36.3; O2SAT 94
[2024-04-27] MEDS: Polyethylene Glycol 3350 17 GM PACKET PO (08:53)
[2024-04-27] MEDS: Tamsulosin HCl 0.4 MG Capsule PO (08:53)
[2024-04-27] MEDS: Multivitamins,Therapeutic Tablet 1 TABLET PO (08:53)
[2024-04-27] MEDS: Menthol/Lanolin/Calamine/Znox 113 GM Tube 1 APPLIC TOPICAL ×2 (08:53→21:39)
[2024-04-27] MEDS: Finasteride 5 MG Tablet PO (08:54)
[2024-04-27] MEDS: Senna/Docusate Sodium 1 Tablet 2 TABLET PO ×2 (08:54→21:39)
[2024-04-27] MEDS: Famotidine 20 MG Tablet 40 MG PO (08:54)
[2024-04-27 09:00] VITALS: BP 119/73; PULSE 66; RESP 19; TEMP 36.5
[2024-04-27] MEDS: cycloBENZAPRine HCl 5 MG TABLET PO ×2 (11:46→21:36)
--- NOTE | 2024-04-27 12:03 | CASEMGMT ---
Social Work IDT met with patient, and dtr Brandy, for care plan meeting. Discussed patient's progress in PT/OT/SN. Educated to Medicare benefit, admitted day . Explained in detail Medicare criteria for skilled care. , OT and this worker encouraged pt to sit up in chair more often, build activity tolerance, 'movement is medicine', change in positioning, socialization, improve mood and isolation. Pt in agreement and understands the benefits. Dr did start pt on Remeron to assist with depressive symptoms. Explained at pt's current LOF with a reuben lift/x2-3 assist, pt would need to transfer to a SNF vs home. agreed and pt expressed understanding and in verbal agreement to make further improvements. Answered family's questions. SW will continue to follow for DC planning assistance. JAMAAL GalindoW
[2024-04-27 13:07] VITALS: BP 108/72; PULSE 107; O2SAT 95
[2024-04-27 14:39] LABS: Pathologist Review Reviewed
--- NOTE | 2024-04-27 16:07 | CASEMGMT ---
Social Work SW completed advanced directives with patient. was present. Original and copies provided to pt. Copies placed on chart. Mackenzie Potter MSW [employer]ESSING [employer]OURER
--- NOTE | 2024-04-27 18:35 | NURSING ---
notified dr bustamante that pt is scheduled to get 2 units of blood Wednesday at 815am
[2024-04-27] MEDS: Mirtazapine 15 MG Tablet 7.5 MG PO (21:38)
[2024-04-28] VITALS (10 sets, daily range): BP systolic 97–119; BP diastolic 59–70; PULSE 78–95; RESP 16; TEMP 35.7–36.8; O2SAT 95–97; BMI 32.5
[2024-04-28] MEDS: oxyCODONE 5 MG Tablet PO ×3 (01:23→20:32)
[2024-04-28] MEDS: Acetaminophen 500 MG Tablet 1000 MG PO ×3 (06:01→21:22)
[2024-04-28] MEDS: traMADol 50 MG Tablet PO ×4 (06:01→21:20)
--- NOTE | 2024-04-28 11:18 | NURSING ---
Resident left unit at 0810 this morning for blood transfusion and is scheduled for endoscopy at 1515
[2024-04-28] MEDS: Furosemide 20 MG/2 ML VIAL IV (11:24)
--- NOTE | 2024-04-28 12:29 | HP.PCM_ITS ---
[facility] - General General Date of Admission: 04/18/24 Date of Service: 04/28/24 Chief Complaint: Anemia HPI Narrative TAVO SALAZAR, is a 69 M who is approximately 2 to 3 weeks status post left hip gamma nailing for intertrochanteric fracture. In the interim, patient underwent multilevel thoracolumbar fusion for upper lumbar extension fracture at [facility]. He has had a tough time with mobilization due to multiple injuries and surgeries. He says that his left hip donna were removed in [place]. He denies any discharge from the wounds. He is currently in rehab for recovery. While in his recovery he was discovered to have a decrease in hemoglobin again the setting of iron deficiency anemia. His stools were checked and they were positive for blood. I was consulted for management of patient's anemia. [facility] Medical History (Updated 04/20/24 @ 00:01 by Justyn Douglas) RADHA (obstructive sleep apnea) Former tobacco use BPH (benign prostatic hyperplasia) Obesity GERD (gastroesophageal reflux disease) Lumbar back pain with radiculopathy affecting lower extremity History of pelvic fracture Hernia Arthritis Spinal stenosis of lumbar region Home Medications ?Medication ?Instructions ?Recorded ?Last Taken ?Type famotidine 40 mg tablet 40 mg PO DAILY stomach 04/05/24 Unknown History finasteride 5 mg tablet 5 mg PO DAILY prostate 04/05/24 Unknown History gabapentin 600 mg tablet 600 mg PO .5x day Pain 04/05/24 Unknown History tamsulosin 0.4 mg capsule 0.4 mg PO DAILY Bph 04/05/24 Unknown History albuterol sulfate 2.5 mg/3 mL 2.5 mg (3 mL) inhalation Q2H PRN 04/08/24 Unknown Rx (0.083 %) solution for nebulization PRN Dyspnea, wheezing #0 mL aluminum-mag hydroxide-simethicone 30 ml PO Q6H PRN PRN Gastric 04/08/24 Unknown Rx 400 mg-400 mg-40 mg/5 mL oral susp Burning #0 mL (Mag-Al Plus Extra Strength) calcium carbonate 500 mg (2.5 x 200 mg calcium (500 04/08/24 Unknown Rx mg)) PO TIDCM GERD #0 tabs food supplemt, lactose-reduced 120 ml PO TIDCM Supplement #0 mL 04/08/24 Unknown Rx 0.08 gram-1.5 kcal/mL oral liquid (Ensure Plus High Protein) melatonin 3 mg tablet 3 mg PO QHS PRN PRN Insomnia #0 04/08/24 Unknown Rx tabs methocarbamol 500 mg tablet 500 mg PO TID PRN spasms #10 tabs 04/08/24 Unknown Rx oxycodone 5 mg tablet 5 - 10 mg (1 - 2 x 5 mg) PO Q4H 04/08/24 Unknown Rx PRN PRN Pain Score 4-10 #0 tabs rivaroxaban 10 mg tablet 10 mg PO DAILY DVT Prophylaxis #30 04/08/24 Unknown Rx tabs acetaminophen 500 mg tablet 500 mg PO Q6H Pain 04/18/24 Unknown History cephalexin 500 mg capsule 500 mg PO Q6H infection 04/18/24 Unknown History cyclobenzaprine 5 mg tablet 5 mg PO TID PRN muscle relax 04/18/24 Unknown History multivitamin (Daily Multi-Vitamin 1 tab PO DAILY supp 04/18/24 Unknown History tablet) mupirocin 2 % topical ointment 1 applic topical TID chin 04/18/24 Unknown History polyethylene glycol 3350 17 17 g PO DAILY bowels 04/18/24 Unknown History gram/dose oral powder (Natura-LAX) sennosides 8.6 mg-docusate sodium 1 tab PO BID Constipation 04/18/24 Unknown History 50 mg tablet (Stimulant Laxative Plus) tramadol 50 mg tablet 50 mg PO 4X/DAY pain 04/18/24 Unknown History Allergy/AdvReac Type Severity Reaction Status Date / Time cephalexin (From Keflex) Allergy Intermediate Rash Verified 04/19/24 02:34 Sulfa (Sulfonamide Allergy Hives Verified 04/12/24 17:36 Antibiotics) Family History Mother Kidney disease Father Heart disease CAD (coronary artery disease) Hypertension Surgical History (Updated 04/18/24 @ 20:[address] Fernando Mejia MD) History of lumbar spinal fusion History of bilateral inguinal hernia repair History of ankle surgery S/P foot surgery, right Social History household members: spouse Smoking Status: Former smoker Tobacco: How many years used: 3 how long ago did patient quit smoking: Smoked in the 1980s x 3 years < 1/4 ppd. alcohol intake: never substance use type: does not use ROS Constitutional Constitutional: Reports weakness; Denies chills, fever(s) or weight gain ENT HEENT: Denies headache(s), nasal congestion or nasal discharge Cardiovascular Cardiovascular: Denies chest pain or palpitations Respiratory/Chest Respiratory/Chest: Denies cough, excessive phlegm production or shortness of breath with exertion Gastrointestinal Gastrointestinal: Denies abdominal pain, nausea or vomiting Genitourinary Genitourinary: Denies dysuria Musculoskeletal Musculoskeletal: Denies joint pain or joint swelling Integumentary Integumentary: Denies rash or wounds Neurologic Neurologic: Denies focal weakness, numbness or tingling Psychiatric Psychiatric: Denies anxiety, auditory hallucinations, depression, homicidal ideation or suicidal ideation Vital Signs Vital Signs Vital Signs: 04/27/24 13:07 04/27/24 16:00 04/27/24 19:00 Temperature Temperature Source Pulse Rate 107 H Pulse Rhythm Irregular Pulse Strength Normal (2+) Normal (2+) Respiratory Rate Respiratory Effort Normal Non-Labored Respiratory Depth Normal Respiratory Pattern Normal Blood Pressure 108/72 Blood Pressure Mean 84 Blood Pressure Source Monitor Blood Pressure Position Blood Pressure Location Pulse Ox 95 Oxygen Delivery Method Room Air Room Air 04/27/24 22:00 04/28/24 08:49 04/28/24 09:20 Temperature 97.3 F L 97.1 F L Temperature Source Temporal Temporal Pulse Rate 95 82 Pulse Rhythm Pulse Strength Normal (2+) Respiratory Rate 16 16 Respiratory Effort Respiratory Depth Respiratory Pattern Blood Pressure 110/62 108/60 Blood Pressure Mean 78 76 Blood Pressure Source Monitor Monitor Blood Pressure Position Supine Sitting Blood Pressure Location Left Arm Left Arm Pulse Ox 96 95 Oxygen Delivery Method Room Air Room Air 04/28/24 10:25 04/28/24 11:17 04/28/24 11:57 Temperature 96.2 F L 96.5 F L 96.8 F L Temperature Source Temporal Temporal Temporal Pulse Rate 82 81 78 Pulse Rhythm Pulse Strength Respiratory Rate 16 16 16 Respiratory Effort Respiratory Depth Respiratory Pattern Blood Pressure 97/65 107/61 110/65 Blood Pressure Mean 75 76 80 Blood Pressure Source Monitor Monitor Monitor Blood Pressure Position Semi-Fowlers Sitting Blood Pressure Location Left Arm Left Arm Left Arm Pulse Ox 95 96 96 Oxygen Delivery Method Room Air Room Air Room Air Weight Weight: 260 lb 1.6 oz Body Mass Index (BMI) 32.5 Physical Exam Const alert General Appearance: cooperative HEENT normocephalic HEENT Narrative: Chin abrasion. Eyes PERRL and EOMs intact bilaterally Neck supple, no JVD and no carotid bruits Resp normal respiratory effort, normal air movement and clear to auscultation bilaterally Cardio regular rate and regular rhythm GI normal to inspection, nondistended, normoactive bowel sounds, non-tender and non-distended Back/Spine Back/Spine Narrative: TLSO brace. Extremity normal capillary refill General Extremity: Negative for edema Skin no rashes or lesions noted General Skin Exam: no breakdown Psych affect normal Appearance: appropriate Results Lab / Micro Data 04/26/24 05:09 04/26/24 05:09 Labs: Laboratory Results - last 24 hr 04/26/24 05:09: Diff Path Review Reviewed 04/26/24 20:47: Blood Type O POSITIVE, Antibody Screen NEGATIVE, Crossmatch See Detail Assessment & Plan Assessment/Plan (1) Debility: (2) Closed L2 vertebral fracture: (3) Herniated lumbar intervertebral disc: (4) Closed left hip fracture: QUALIFIERS: Encounter type: initial encounter Qualified Code(s): S72.002A - Fracture of unspecified part of neck of left femur, initial encounter for closed fracture (5) GERD (gastroesophageal reflux disease): (6) BPH (benign prostatic hyperplasia): (7) Insomnia: (8) Muscle spasm: (9) Acute blood loss anemia: PLAN: Plan 69 year old male with below past medical history hospitalized for L2 fracture, herniate lumbar disc, underwent T11 - L4 posterior spinal fusion, L2 laminectomy decompression 04/13/2024, complicated by postoperative anemia, hyponatremia, recent left hip fracture, underwent left hip ORIF cephalomedullary gamma nailing 04/06/2024, admitted to TCU with debility, here for rehabilitation, strengthening, prior to discharge home with . Patient also has been having progressive acute on chronic anemia. Differential diagnosis does include peptic ulcer disease, malignancy, angiodysplasia. He should undergo upper endoscopy to evaluate of his upper GI tract as he has been on Xarelto for DVT prophylaxis. He was explained alternatives, risk and benefits include not withstanding bleeding, infection, sepsis, perforation, need for return to . He will have an ASA of 3. .
[2024-04-28] MEDS: Gabapentin 600 MG Tablet PO ×3 (14:12→21:20)
--- NOTE | 2024-04-28 18:49 | NURSING ---
pt back from endo via bed, new orders from Dr Tomasz Roth & protonix.
--- NOTE | 2024-04-28 19:00 | NURSING ---
Resident returned to unit after blood transfusion around 2pm and then left for endoscopy at 310pm. Resident returned to unit from endoscopy at 630p,
[2024-04-28] MEDS: cycloBENZAPRine HCl 5 MG TABLET PO (21:20)
[2024-04-28] MEDS: Fluconazole 100 MG Tablet 200 MG PO (21:20)
[2024-04-28] MEDS: Sucralfate 1 GM Tablet PO (21:21)
[2024-04-28] MEDS: Mirtazapine 15 MG Tablet 7.5 MG PO (21:21)
[2024-04-28] MEDS: Pantoprazole Sodium 40 MG Tablet PO (21:21)
[2024-04-28] MEDS: Senna/Docusate Sodium 1 Tablet 2 TABLET PO (21:22)
[2024-04-28] MEDS: Menthol/Lanolin/Calamine/Znox 113 GM Tube 1 APPLIC TOPICAL (21:34)
[2024-04-29] MEDS: oxyCODONE 5 MG Tablet PO (04:08)
[2024-04-29] MEDS: traMADol 50 MG Tablet PO ×4 (06:01→22:36)
[2024-04-29] MEDS: Sucralfate 1 GM Tablet PO ×4 (06:02→22:38)
[2024-04-29] MEDS: Acetaminophen 500 MG Tablet 1000 MG PO ×3 (06:03→22:37)
[2024-04-29] MEDS: Gabapentin 600 MG Tablet PO ×5 (06:06→22:36)
[2024-04-29] MEDS: Menthol/Lanolin/Calamine/Znox 113 GM Tube 1 APPLIC TOPICAL ×2 (10:15→22:41)
[2024-04-29] MEDS: Finasteride 5 MG Tablet PO (10:15)
[2024-04-29] MEDS: Senna/Docusate Sodium 1 Tablet 2 TABLET PO ×2 (10:15→22:37)
[2024-04-29] MEDS: Fluconazole 100 MG Tablet 200 MG PO (10:15)
[2024-04-29] MEDS: Tamsulosin HCl 0.4 MG Capsule PO (10:15)
[2024-04-29] MEDS: Multivitamins,Therapeutic Tablet 1 TABLET PO (10:15)
[2024-04-29] MEDS: Pantoprazole Sodium 40 MG Tablet PO ×2 (10:15→22:39)
[2024-04-29] MEDS: Nystatin Powder 15gm Bottle 1 APPLIC TOPICAL ×2 (10:21→22:41)
[2024-04-29 10:23] VITALS: BP 97/56; PULSE 84; RESP 18; TEMP 36.7; O2SAT 96
[2024-04-29 16:12] LABS: Hematocrit 32.6 % (40-54); Hemoglobin 10.3 g/dL (13.0-16.5)
[2024-04-29] MEDS: cycloBENZAPRine HCl 5 MG TABLET PO (22:38)
[2024-04-29] MEDS: Mirtazapine 15 MG Tablet 7.5 MG PO (22:39)
[2024-04-30] MEDS: oxyCODONE 5 MG Tablet PO (03:41)
[2024-04-30] MEDS: traMADol 50 MG Tablet PO ×4 (06:11→21:16)
[2024-04-30] MEDS: Sucralfate 1 GM Tablet PO ×4 (06:11→21:16)
[2024-04-30] MEDS: Gabapentin 600 MG Tablet PO ×5 (06:11→21:16)
[2024-04-30] MEDS: Acetaminophen 500 MG Tablet 1000 MG PO ×3 (06:11→21:17)
[2024-04-30] MEDS: Fluconazole 100 MG Tablet 200 MG PO (09:29)
[2024-04-30] MEDS: Pantoprazole Sodium 40 MG Tablet PO ×2 (09:29→21:16)
[2024-04-30] MEDS: Finasteride 5 MG Tablet PO (09:29)
[2024-04-30] MEDS: Tamsulosin HCl 0.4 MG Capsule PO (09:30)
[2024-04-30] MEDS: Multivitamins,Therapeutic Tablet 1 TABLET PO (09:30)
[2024-04-30] MEDS: Nystatin Powder 15gm Bottle 1 APPLIC TOPICAL ×2 (09:34→21:19)
[2024-04-30] MEDS: Menthol/Lanolin/Calamine/Znox 113 GM Tube 1 APPLIC TOPICAL ×2 (09:34→21:18)
[2024-04-30 16:00] VITALS: BP 116/67; PULSE 115; RESP 18; TEMP 37; O2SAT 96
[2024-04-30] MEDS: 0.9% Saline Lock 10 ML Syringe IV ×2 (16:49→21:20)
[2024-04-30] MEDS: Mirtazapine 15 MG Tablet 7.5 MG PO (21:16)
[2024-04-30] MEDS: cycloBENZAPRine HCl 5 MG TABLET PO (21:16)
[2024-04-30] MEDS: Senna/Docusate Sodium 1 Tablet 2 TABLET PO (21:17)
[2024-04-30 21:20] VITALS: RESP 16
[2024-05-01] MEDS: oxyCODONE 5 MG Tablet PO ×2 (01:19→15:36)
--- NOTE | 2024-05-01 02:17 | NURSING ---
Patient called out for this nurse using call pollack. Patient stated, I feel like I have to pee, but I can't go. I got a little bit out, but I still need to go. This nurse bladder scanned patient. PVR 725ml. Patient agreed to insertion of straight catheter to empty bladder. 725ml emptied via straight catheter. Patient tolerated well. Patient states I feel so much better, thank you. This nurse educated patient that three straight caths would result in casper placement. Patient verbalized understanding and told this nurse he has had one before. Continue voiding trials. Patient denies further assistance, call light in reach.
[2024-05-01] MEDS: traMADol 50 MG Tablet PO ×4 (06:05→22:01)
[2024-05-01] MEDS: Acetaminophen 500 MG Tablet 1000 MG PO ×3 (06:06→22:01)
[2024-05-01] MEDS: Sucralfate 1 GM Tablet PO ×4 (06:06→22:01)
[2024-05-01] MEDS: Gabapentin 600 MG Tablet PO ×5 (06:06→22:01)
[2024-05-01 06:50] VITALS: RESP 16
[2024-05-01 09:29] VITALS: BP 88/58; PULSE 80; RESP 16; TEMP 36.6; O2SAT 94
[2024-05-01 09:32] VITALS: BP 95/64
[2024-05-01] MEDS: Finasteride 5 MG Tablet PO (09:35)
[2024-05-01] MEDS: Pantoprazole Sodium 40 MG Tablet PO ×2 (09:35→22:03)
[2024-05-01] MEDS: Multivitamins,Therapeutic Tablet 1 TABLET PO (09:35)
[2024-05-01] MEDS: Fluconazole 100 MG Tablet 200 MG PO (09:35)
[2024-05-01] MEDS: Tamsulosin HCl 0.4 MG Capsule PO (09:35)
[2024-05-01] MEDS: Menthol/Lanolin/Calamine/Znox 113 GM Tube 1 APPLIC TOPICAL ×2 (09:40→22:02)
[2024-05-01] MEDS: Nystatin Powder 15gm Bottle 1 APPLIC TOPICAL ×2 (09:41→22:02)
--- NOTE | 2024-05-01 13:46 | MDS.RN ---
Information for the MDS was obtained from review of the clinical record, interview of resident, staff, and direct observation of resident?s care.
[2024-05-01] MEDS: Mirtazapine 15 MG Tablet 7.5 MG PO (22:02)
[2024-05-01] MEDS: Senna/Docusate Sodium 1 Tablet 2 TABLET PO (22:02)
--- NOTE | 2024-05-02 | NURSING ---
Offered bladder scan, patient declines, states I have been going fine, I will let you know if I need scanned. Patient denies dysuria or sensation of urine retention. A&Ox3, able to voice needs. educated on bladder scans and encouraged to call for nurse if unable to void, verbalizes understanding, no distress observed or reproted. call light in reach.
[2024-05-02] MEDS: oxyCODONE 5 MG Tablet PO (00:23)
[2024-05-02] MEDS: Gabapentin 600 MG Tablet PO ×5 (06:27→22:15)
[2024-05-02] MEDS: traMADol 50 MG Tablet PO ×4 (06:27→22:15)
[2024-05-02] MEDS: Sucralfate 1 GM Tablet PO ×4 (06:27→22:18)
[2024-05-02] MEDS: Acetaminophen 500 MG Tablet 1000 MG PO ×3 (06:27→22:15)
[2024-05-02 09:26] VITALS: BP 102/62; PULSE 82; RESP 16; TEMP 36.6; O2SAT 94
[2024-05-02] MEDS: Multivitamins,Therapeutic Tablet 1 TABLET PO (09:34)
[2024-05-02] MEDS: Senna/Docusate Sodium 1 Tablet 2 TABLET PO ×2 (09:34→22:16)
[2024-05-02] MEDS: Tamsulosin HCl 0.4 MG Capsule PO (09:34)
[2024-05-02] MEDS: Finasteride 5 MG Tablet PO (09:34)
[2024-05-02] MEDS: Pantoprazole Sodium 40 MG Tablet PO ×2 (09:34→22:17)
[2024-05-02] MEDS: Fluconazole 100 MG Tablet 200 MG PO (09:34)
[2024-05-02] MEDS: Menthol/Lanolin/Calamine/Znox 113 GM Tube 1 APPLIC TOPICAL ×2 (09:35→22:20)
[2024-05-02] MEDS: Nystatin Powder 15gm Bottle 1 APPLIC TOPICAL ×2 (09:35→22:19)
[2024-05-02 11:39] VITALS: BMI 31.5
--- NOTE | 2024-05-02 11:59 | NURSING ---
message left with [facility] surgical office regarding suture removal and if pt has follow up appt scheduled, awaiting return call.
--- NOTE | 2024-05-02 12:11 | NURSING ---
spoke with , pt has appt scheduled this Wed @ 0845& May 30 @ 10am. will set up cot transport.
--- NOTE | 2024-05-02 15:22 | NURSING ---
f/u sx appt changed to 05/09 0915 pt & updated, physicians transport notified.
--- NOTE | 2024-05-02 15:25 | NURSING ---
pt nauseated, lightheaded, c/o FLETCHER after therapy. applied cool washcloth to forhead. turned out lights. will monitor. pt on new amount of medications, diflucan, sched ultram, protonix and carafate.
[2024-05-02 15:28] VITALS: BP 107/70; PULSE 101; RESP 20; TEMP 37.1; O2SAT 95
--- NOTE | 2024-05-02 17:01 | NURSING ---
pt denies nausea, FLETCHER. took evening meds, resting in bed, call light in reach.
[2024-05-02 17:02] VITALS: TEMP 36.8
[2024-05-02] MEDS: Mirtazapine 15 MG Tablet 7.5 MG PO (22:16)
[2024-05-02] MEDS: cycloBENZAPRine HCl 5 MG TABLET PO (22:18)
[2024-05-02 23:07] VITALS: PULSE 83; RESP 16; O2SAT 92
[2024-05-03] MEDS: oxyCODONE 5 MG Tablet PO ×2 (02:31→11:17)
[2024-05-03] MEDS: Acetaminophen 500 MG Tablet 1000 MG PO ×3 (05:12→21:18)
[2024-05-03] MEDS: Sucralfate 1 GM Tablet PO ×4 (05:13→21:18)
[2024-05-03] MEDS: Gabapentin 600 MG Tablet PO ×5 (05:13→21:17)
[2024-05-03] MEDS: traMADol 50 MG Tablet PO ×4 (05:13→21:17)
[2024-05-03 05:57] LABS: Hematocrit 32.3 % (40-54); Hemoglobin 10.1 g/dL (13.0-16.5); Mean Corp Hgb Conc 31.3 g/dL (32-36); Mean Corpuscular Hgb 30.3 pg (27.0-32.0); Mean Platelet Vol. 10.1 fl (6.2-12.0); POSITIVE COUNT YES; POSITIVE MORPHOLOGY YES; Platelet Count 153 K/mm3 (150-450); RBC Distribution Width CV 15.9 % (11.6-14.6); RBC Distribution Width SD 56.2 fl (35.1-43.9); Red Blood Count 3.33 M/mm3 (4.6-6.2); White Blood Count 4.7 K/mm3 (4.4-11.0)
[2024-05-03 06:10] LABS: Differential Indicated MANUAL DIFF
[2024-05-03 06:49] LABS: Anion Gap 4 (5-15); BUN 16 mg/dL (7-18); BUN/Creat Ratio 28.7 RATIO (10-20); Calcium,Total 8.6 mg/dL (8.5-10.1); Chloride 101 mmol/L (98-107); Creatinine, Serum 0.56 mg/dL (0.70-1.30); EST Glomerular Filtration Rate 155 mL/min (>60); Est Glom Filt Rate - Afr Amer 187 mL/min (>60); Estimated Creatinine Clearance 119.21 ml/min; Glucose 104 mg/dL (74-106); Potassium 3.9 mmol/L (3.5-5.1); Sodium Level 135 mmol/L (136-145)
[2024-05-03 07:20] LABS: Eosinophil 3 % (0-5); Lymphocyte 30 % (19-41); Metamyelocyte 1 % (0-1); Monocyte 5 % (0-10); Neutrophil-Band 4 % (0-5); Neutrophil-Segmented 57 % (47-70); Total Cells Counted 100 (MANUAL DIFF)
[2024-05-03 07:26] LABS: Anisocytosis 1+; Red Cell Morphology N CHROM NORMAL (NORM C&C)
[2024-05-03 07:27] LABS: Platelet Estimate ADEQUATE (ADEQ)
[2024-05-03 07:29] LABS: Absolute Lymphocyte Count 1.41 X10^3/uL (0.83-4.51); Absolute Neutrophil Count 2.9 X10^3/uL (2.0-7.7)
[2024-05-03] MEDS: Finasteride 5 MG Tablet PO (09:20)
[2024-05-03] MEDS: Multivitamins,Therapeutic Tablet 1 TABLET PO (09:20)
[2024-05-03] MEDS: Tamsulosin HCl 0.4 MG Capsule PO (09:20)
[2024-05-03] MEDS: Fluconazole 100 MG Tablet 200 MG PO (09:20)
[2024-05-03] MEDS: Pantoprazole Sodium 40 MG Tablet PO ×2 (09:20→21:18)
[2024-05-03] MEDS: Senna/Docusate Sodium 1 Tablet 2 TABLET PO ×2 (09:20→21:17)
[2024-05-03] MEDS: Nystatin Powder 15gm Bottle 1 APPLIC TOPICAL ×2 (09:21→21:19)
[2024-05-03] MEDS: Menthol/Lanolin/Calamine/Znox 113 GM Tube 1 APPLIC TOPICAL ×2 (09:21→21:19)
[2024-05-03 13:58] LABS: Pathologist Review Reviewed
[2024-05-03 16:00] VITALS: BP 110/72; PULSE 70; RESP 20; TEMP 36.5; O2SAT 96
[2024-05-03] MEDS: cycloBENZAPRine HCl 5 MG TABLET PO (21:17)
[2024-05-03] MEDS: Mirtazapine 15 MG Tablet 7.5 MG PO (21:18)
[2024-05-04] MEDS: oxyCODONE 5 MG Tablet PO (02:08)
[2024-05-04] MEDS: traMADol 50 MG Tablet PO ×4 (05:55→21:52)
[2024-05-04] MEDS: Gabapentin 600 MG Tablet PO ×5 (05:55→21:52)
[2024-05-04] MEDS: Acetaminophen 500 MG Tablet 1000 MG PO ×3 (05:55→21:53)
[2024-05-04] MEDS: Sucralfate 1 GM Tablet PO ×4 (05:55→21:53)
[2024-05-04 09:02] VITALS: BP 114/54; PULSE 89; RESP 16; TEMP 36.2; O2SAT 95
[2024-05-04] MEDS: Multivitamins,Therapeutic Tablet 1 TABLET PO (09:03)
[2024-05-04] MEDS: Finasteride 5 MG Tablet PO (09:04)
[2024-05-04] MEDS: Senna/Docusate Sodium 1 Tablet 2 TABLET PO ×2 (09:04→21:53)
[2024-05-04] MEDS: Tamsulosin HCl 0.4 MG Capsule PO (09:04)
[2024-05-04] MEDS: Pantoprazole Sodium 40 MG Tablet PO ×2 (09:04→21:53)
[2024-05-04] MEDS: Fluconazole 100 MG Tablet 200 MG PO (09:04)
[2024-05-04] MEDS: Nystatin Powder 15gm Bottle 1 APPLIC TOPICAL ×2 (09:05→21:54)
[2024-05-04] MEDS: Menthol/Lanolin/Calamine/Znox 113 GM Tube 1 APPLIC TOPICAL ×2 (09:05→21:54)
[2024-05-04 21:50] VITALS: RESP 16
[2024-05-04] MEDS: Mirtazapine 15 MG Tablet 7.5 MG PO (21:53)
[2024-05-04] MEDS: cycloBENZAPRine HCl 5 MG TABLET PO (21:54)
[2024-05-05] MEDS: oxyCODONE 5 MG Tablet PO (03:07)
[2024-05-05] MEDS: cycloBENZAPRine HCl 5 MG TABLET PO ×2 (03:08→21:33)
[2024-05-05] MEDS: Acetaminophen 500 MG Tablet 1000 MG PO ×3 (05:22→21:21)
[2024-05-05] MEDS: Sucralfate 1 GM Tablet PO ×4 (05:23→21:19)
[2024-05-05] MEDS: Gabapentin 600 MG Tablet PO ×5 (05:28→21:19)
[2024-05-05] MEDS: traMADol 50 MG Tablet PO ×4 (05:28→21:19)
[2024-05-05] MEDS: Pantoprazole Sodium 40 MG Tablet PO ×2 (09:35→21:19)
[2024-05-05] MEDS: Tamsulosin HCl 0.4 MG Capsule PO (09:35)
[2024-05-05] MEDS: Multivitamins,Therapeutic Tablet 1 TABLET PO (09:35)
[2024-05-05] MEDS: Finasteride 5 MG Tablet PO (09:35)
[2024-05-05] MEDS: Fluconazole 100 MG Tablet 200 MG PO (09:35)
[2024-05-05] MEDS: Menthol/Lanolin/Calamine/Znox 113 GM Tube 1 APPLIC TOPICAL ×2 (09:36→21:22)
[2024-05-05] MEDS: Nystatin Powder 15gm Bottle 1 APPLIC TOPICAL ×2 (09:36→21:21)
[2024-05-05] MEDS: Senna/Docusate Sodium 1 Tablet 2 TABLET PO ×2 (09:39→21:20)
[2024-05-05 14:01] VITALS: BP 104/62; PULSE 102; RESP 16; TEMP 36.2; O2SAT 97
[2024-05-05] MEDS: Mirtazapine 15 MG Tablet 7.5 MG PO (21:20)
[2024-05-06] MEDS: traMADol 50 MG Tablet PO ×4 (05:56→21:57)
[2024-05-06] MEDS: Gabapentin 600 MG Tablet PO ×5 (05:56→21:56)
[2024-05-06] MEDS: Acetaminophen 500 MG Tablet 1000 MG PO ×3 (05:58→21:57)
[2024-05-06] MEDS: Sucralfate 1 GM Tablet PO ×4 (06:00→21:56)
[2024-05-06 08:00] VITALS: BP 122/61; PULSE 88; RESP 18; TEMP 36.6; O2SAT 94
[2024-05-06] MEDS: Tamsulosin HCl 0.4 MG Capsule PO (09:01)
[2024-05-06] MEDS: Multivitamins,Therapeutic Tablet 1 TABLET PO (09:01)
[2024-05-06] MEDS: Fluconazole 100 MG Tablet 200 MG PO (09:01)
[2024-05-06] MEDS: Polyethylene Glycol 3350 17 GM PACKET PO (09:02)
[2024-05-06] MEDS: Pantoprazole Sodium 40 MG Tablet PO ×2 (09:02→21:56)
[2024-05-06] MEDS: Finasteride 5 MG Tablet PO (09:02)
[2024-05-06] MEDS: Menthol/Lanolin/Calamine/Znox 113 GM Tube 1 APPLIC TOPICAL ×2 (09:02→21:56)
[2024-05-06] MEDS: Nystatin Powder 15gm Bottle 1 APPLIC TOPICAL ×2 (09:02→21:56)
[2024-05-06] MEDS: Senna/Docusate Sodium 1 Tablet 2 TABLET PO ×2 (09:02→21:57)
[2024-05-06] MEDS: cycloBENZAPRine HCl 5 MG TABLET PO ×2 (15:00→21:57)
[2024-05-06 18:00] VITALS: PULSE 88; RESP 18; O2SAT 94
[2024-05-06] MEDS: Mirtazapine 15 MG Tablet 7.5 MG PO (21:56)
[2024-05-07] MEDS: Sucralfate 1 GM Tablet PO ×4 (05:24→21:47)
[2024-05-07] MEDS: Gabapentin 600 MG Tablet PO ×5 (05:25→21:46)
[2024-05-07] MEDS: Acetaminophen 500 MG Tablet 1000 MG PO ×3 (05:25→21:48)
[2024-05-07] MEDS: traMADol 50 MG Tablet PO ×4 (05:25→21:46)
[2024-05-07 09:18] VITALS: BP 111/57; PULSE 76; RESP 18; TEMP 36.4; O2SAT 96
[2024-05-07] MEDS: Tamsulosin HCl 0.4 MG Capsule PO (09:19)
[2024-05-07] MEDS: Senna/Docusate Sodium 1 Tablet 2 TABLET PO ×2 (09:19→21:48)
[2024-05-07] MEDS: Multivitamins,Therapeutic Tablet 1 TABLET PO (09:19)
[2024-05-07] MEDS: Menthol/Lanolin/Calamine/Znox 113 GM Tube 1 APPLIC TOPICAL ×2 (09:20→21:52)
[2024-05-07] MEDS: Pantoprazole Sodium 40 MG Tablet PO ×2 (09:20→21:48)
[2024-05-07] MEDS: Fluconazole 100 MG Tablet 200 MG PO (09:20)
[2024-05-07] MEDS: Nystatin Powder 15gm Bottle 1 APPLIC TOPICAL ×2 (09:20→21:53)
[2024-05-07] MEDS: Finasteride 5 MG Tablet PO (09:20)
[2024-05-07 10:00] VITALS: PULSE 76; RESP 18; O2SAT 96
[2024-05-07] MEDS: cycloBENZAPRine HCl 5 MG TABLET PO ×2 (16:24→21:47)
[2024-05-07] MEDS: Mirtazapine 15 MG Tablet 7.5 MG PO (21:49)
[2024-05-08] MEDS: Gabapentin 600 MG Tablet PO ×5 (05:49→22:21)
[2024-05-08] MEDS: Acetaminophen 500 MG Tablet 1000 MG PO ×3 (05:49→22:22)
[2024-05-08] MEDS: cycloBENZAPRine HCl 5 MG TABLET PO (05:50)
[2024-05-08] MEDS: Sucralfate 1 GM Tablet PO ×4 (05:50→22:20)
[2024-05-08] MEDS: traMADol 50 MG Tablet PO ×4 (05:50→22:21)
[2024-05-08 09:18] VITALS: BP 110/58; PULSE 71; RESP 18; TEMP 36.9; O2SAT 94
[2024-05-08] MEDS: Multivitamins,Therapeutic Tablet 1 TABLET PO (09:23)
[2024-05-08] MEDS: Tamsulosin HCl 0.4 MG Capsule PO (09:23)
[2024-05-08] MEDS: Finasteride 5 MG Tablet PO (09:23)
[2024-05-08] MEDS: Fluconazole 100 MG Tablet 200 MG PO (09:23)
[2024-05-08] MEDS: Pantoprazole Sodium 40 MG Tablet PO ×2 (09:24→22:21)
[2024-05-08] MEDS: Nystatin Powder 15gm Bottle 1 APPLIC TOPICAL ×2 (09:24→22:26)
[2024-05-08] MEDS: Senna/Docusate Sodium 1 Tablet 2 TABLET PO (09:24)
[2024-05-08] MEDS: Menthol/Lanolin/Calamine/Znox 113 GM Tube 1 APPLIC TOPICAL ×2 (09:25→22:27)
[2024-05-08 11:14] VITALS: RESP 16; O2SAT 96
--- NOTE | 2024-05-08 11:21 | NURSING ---
pt incont of stool, incont care provided, pt does not call staff to change, waits until staff come in to get him up via reuben to chair x3 assist. Pt needs much encouragement to assist staff with rolling or even picking things up off his table or moving call light that is in reach. pt up in chair, TLSO brace placed on pt per order when OOB. call light in pt lap for easy reach per his request. all personal items in reach.
[2024-05-08] MEDS: Mirtazapine 15 MG Tablet 7.5 MG PO (22:21)
[2024-05-09] MEDS: cycloBENZAPRine HCl 5 MG TABLET PO ×3 (03:41→22:21)
--- NOTE | 2024-05-09 03:50 | NURSING ---
Resident has a f/u appt w/ ortho at [facility] this am. He is requesting to take medications scheduled for 0800 and 1000 after he returns from the appt. Will report to oncoming nurse.
[2024-05-09] MEDS: traMADol 50 MG Tablet PO ×4 (06:46→22:21)
[2024-05-09] MEDS: Gabapentin 600 MG Tablet PO ×5 (06:46→22:21)
[2024-05-09] MEDS: Acetaminophen 500 MG Tablet 1000 MG PO ×3 (06:46→22:22)
[2024-05-09] MEDS: Sucralfate 1 GM Tablet PO ×4 (06:47→22:22)
--- NOTE | 2024-05-09 09:24 | NURSING ---
Resident off unit around 0835 for appt.
--- NOTE | 2024-05-09 10:40 | NURSING ---
pt returned from Dr martinez.
[2024-05-09 11:00] VITALS: BP 128/64; PULSE 95; RESP 17; TEMP 35.7; O2SAT 99
[2024-05-09] MEDS: Senna/Docusate Sodium 1 Tablet 2 TABLET PO ×2 (11:17→22:22)
[2024-05-09] MEDS: Tamsulosin HCl 0.4 MG Capsule PO (11:17)
[2024-05-09] MEDS: Fluconazole 100 MG Tablet 200 MG PO (11:17)
[2024-05-09] MEDS: Finasteride 5 MG Tablet PO (11:17)
[2024-05-09] MEDS: Pantoprazole Sodium 40 MG Tablet PO ×2 (11:17→22:23)
[2024-05-09] MEDS: Multivitamins,Therapeutic Tablet 1 TABLET PO (11:18)
[2024-05-09] MEDS: Menthol/Lanolin/Calamine/Znox 113 GM Tube 1 APPLIC TOPICAL ×2 (11:18→22:23)
[2024-05-09] MEDS: Nystatin Powder 15gm Bottle 1 APPLIC TOPICAL ×2 (11:18→22:23)
[2024-05-09 11:34] VITALS: BMI 30.7
[2024-05-09] MEDS: Mirtazapine 15 MG Tablet 7.5 MG PO (22:22)
[2024-05-09 22:35] VITALS: PULSE 86; RESP 16
[2024-05-10 06:22] LABS: Absolute Lymphocyte Count 1.59 X10^3/uL (0.83-4.51); Absolute Neutrophil Count 2.3 X10^3/uL (2.0-7.7); Basophil# 0.03 X10^3/uL; Basophil% 0.6 % (0-1); Eosinophils% 2.1 % (0-5); Hematocrit 33.6 % (40-54); Hemoglobin 10.6 g/dL (13.0-16.5); Lymphocyte # 1.59 X10^3/ul (0.83-4.51); Lymphocyte % 34.1 % (19-41); Mean Corp Hgb Conc 31.5 g/dL (32-36); Mean Corpuscular Hgb 30.9 pg (27.0-32.0); Monocyte# 0.44 X10^3/uL; Monocyte% 9.4 % (0-10); NRBC Flagged by Analyzer 0 % (0-5); Neutrophil # 2.27 X10^3/uL (2.7-7.7); Neutrophil % 48.9 % (47-70); Platelet Count 183 K/mm3 (150-450); RBC Distribution Width CV 15.8 % (11.6-14.6); RBC Distribution Width SD 55.7 fl (35.1-43.9); Red Blood Count 3.43 M/mm3 (4.6-6.2); White Blood Count 4.7 K/mm3 (4.4-11.0)
[2024-05-10] MEDS: traMADol 50 MG Tablet PO ×4 (06:46→21:58)
[2024-05-10] MEDS: Sucralfate 1 GM Tablet PO ×4 (06:46→21:58)
[2024-05-10] MEDS: Acetaminophen 500 MG Tablet 1000 MG PO ×3 (06:46→21:58)
[2024-05-10] MEDS: Gabapentin 600 MG Tablet PO ×5 (06:46→21:58)
[2024-05-10 06:49] LABS: Anion Gap 3 (5-15); BUN 19 mg/dL (7-18); BUN/Creat Ratio 30.6 RATIO (10-20); Calcium,Total 9.1 mg/dL (8.5-10.1); Chloride 102 mmol/L (98-107); Creatinine, Serum 0.62 mg/dL (0.70-1.30); EST Glomerular Filtration Rate 137 mL/min (>60); Est Glom Filt Rate - Afr Amer 165 mL/min (>60); Estimated Creatinine Clearance 117.47 ml/min; Glucose 115 mg/dL (74-106); Potassium 3.9 mmol/L (3.5-5.1); Sodium Level 137 mmol/L (136-145)
[2024-05-10 10:30] VITALS: BP 104/63; PULSE 71; RESP 16; TEMP 36.2; O2SAT 96
[2024-05-10] MEDS: Tamsulosin HCl 0.4 MG Capsule PO (10:32)
[2024-05-10] MEDS: Fluconazole 100 MG Tablet 200 MG PO (10:32)
[2024-05-10] MEDS: Multivitamins,Therapeutic Tablet 1 TABLET PO (10:32)
[2024-05-10] MEDS: Senna/Docusate Sodium 1 Tablet 2 TABLET PO ×2 (10:33→21:58)
[2024-05-10] MEDS: Finasteride 5 MG Tablet PO (10:33)
[2024-05-10] MEDS: Pantoprazole Sodium 40 MG Tablet PO ×2 (10:33→21:59)
[2024-05-10] MEDS: Menthol/Lanolin/Calamine/Znox 113 GM Tube 1 APPLIC TOPICAL ×2 (10:34→21:59)
[2024-05-10] MEDS: Nystatin Powder 15gm Bottle 1 APPLIC TOPICAL ×2 (10:34→21:59)
[2024-05-10] MEDS: cycloBENZAPRine HCl 5 MG TABLET PO ×2 (14:27→21:58)
[2024-05-10] MEDS: Mirtazapine 15 MG Tablet 7.5 MG PO (21:59)
[2024-05-10 22:00] VITALS: RESP 16
[2024-05-11] MEDS: Acetaminophen 500 MG Tablet 1000 MG PO ×3 (06:02→23:19)
[2024-05-11] MEDS: traMADol 50 MG Tablet PO ×4 (06:02→23:16)
[2024-05-11] MEDS: Sucralfate 1 GM Tablet PO ×4 (06:02→23:18)
[2024-05-11] MEDS: Gabapentin 600 MG Tablet PO ×5 (06:02→23:16)
[2024-05-11 06:11] VITALS: RESP 15
[2024-05-11] MEDS: Finasteride 5 MG Tablet PO (09:49)
[2024-05-11] MEDS: Pantoprazole Sodium 40 MG Tablet PO ×2 (09:49→23:21)
[2024-05-11] MEDS: Multivitamins,Therapeutic Tablet 1 TABLET PO (09:49)
[2024-05-11] MEDS: Tamsulosin HCl 0.4 MG Capsule PO (09:49)
[2024-05-11] MEDS: Menthol/Lanolin/Calamine/Znox 113 GM Tube 1 APPLIC TOPICAL ×2 (09:49→23:26)
[2024-05-11] MEDS: Fluconazole 100 MG Tablet 200 MG PO (09:49)
[2024-05-11] MEDS: Nystatin Powder 15gm Bottle 1 APPLIC TOPICAL ×2 (09:50→23:27)
[2024-05-11 10:40] VITALS: BP 109/63; PULSE 70; RESP 16; TEMP 36.3; O2SAT 95
--- NOTE | 2024-05-11 14:13 | CASEMGMT ---
Social Work SW received phone call from Brandy weir, and Efrain LUO, requesting updates on pt's progress in therapy and with several questions. SW provided verbal updates from previous IDT Huddle and through observation from therapy session yesterday and today from this worker. MAYCO explained pt remains very painful and yelling out during therapy sessions. TerriPayton has been practicing with pt's standing and transfers during therapy. Though, thus far, no significant progress has been made since last reported to family. PUJA informed this worker that family feels it is pt's mental game and requesting therapy staff provide tough love and increased encouragement to make further progress. PUJA understands pt has the right to refuse, but family has encouraged pt separately and feels it would be better coming from staff. SW expressed understanding and agreed therapy has considered increased encouragement to motivate pt further, but is being compassionate toward pt's pain levels. PUJA appreciative, but he and dtr did give permission to increase encouragement. MAYOC agreed to notify therapy staff. PUJA also inquired about pt's duration of therapy sessions, as pt is being cotreated, PUJA inquired if pt could have two separate sessions and have an OT and an aide for one session and a PT and an aide for a second session to provide more therapy for pt. MAYCO educated that pt's level of assistance requires the skills of therapists and are trialing different techniques. Nursing staff would not be involved in therapy sessions. MAYCO explained that while in the therapy gym, this worker has observed, and therapy notes support, that a third therapist is included in standing tolerance exercises or transfers. Explained pt is also not exhibiting being able to tolerate increased therapy minutes at this time, but once pt is able to be a one person assist and/or increase activity tolerance, PT and OT will separate and pt will receive 30 or more minutes per session. Explained Medicare guidelines only require 15 minutes of one therapy per day, and pt is exceeding that daily. PUJA expressed understanding, replying No, I'm not saying anything negative; just in order to have him continue improving. SW agreed and therapy will monitor if/when pt is at that level. PUJA inquired about timeframe for DC. MAYCO explained if pt is not making significant progress over the next week, IDT will set DC date with the family and SW will assist with transfer to another SNF, per recommendations. PUJA expressed understanding and appreciative of time and assistance. SW provided hand off to treating [employer]AYDIN, and therapy electronic coils supervisor. Will continue to follow. Mackenzie Potter, [employer]BER J[employer]AN MAN
[2024-05-11] MEDS: Senna/Docusate Sodium 1 Tablet 2 TABLET PO (23:19)
[2024-05-11] MEDS: Mirtazapine 15 MG Tablet 7.5 MG PO (23:20)
[2024-05-11] MEDS: cycloBENZAPRine HCl 5 MG TABLET PO (23:22)
[2024-05-12] MEDS: Acetaminophen 500 MG Tablet 1000 MG PO ×3 (06:28→22:30)
[2024-05-12] MEDS: Gabapentin 600 MG Tablet PO ×5 (06:29→22:29)
[2024-05-12] MEDS: Sucralfate 1 GM Tablet PO ×4 (06:29→22:30)
[2024-05-12] MEDS: traMADol 50 MG Tablet PO ×4 (06:29→22:30)
[2024-05-12 09:03] VITALS: BP 110/61; PULSE 74; RESP 16; TEMP 36.7; O2SAT 93
[2024-05-12] MEDS: Fluconazole 100 MG Tablet 200 MG PO (09:06)
[2024-05-12] MEDS: Multivitamins,Therapeutic Tablet 1 TABLET PO (09:06)
[2024-05-12] MEDS: Menthol/Lanolin/Calamine/Znox 113 GM Tube 1 APPLIC TOPICAL ×2 (09:06→22:32)
[2024-05-12] MEDS: Nystatin Powder 15gm Bottle 1 APPLIC TOPICAL ×2 (09:07→22:30)
[2024-05-12] MEDS: Finasteride 5 MG Tablet PO (09:07)
[2024-05-12] MEDS: Tamsulosin HCl 0.4 MG Capsule PO (09:07)
[2024-05-12] MEDS: Pantoprazole Sodium 40 MG Tablet PO ×2 (09:07→22:30)
[2024-05-12] MEDS: cycloBENZAPRine HCl 5 MG TABLET PO (14:15)
[2024-05-12] MEDS: Mirtazapine 15 MG Tablet 7.5 MG PO (22:31)
[2024-05-12] MEDS: Senna/Docusate Sodium 1 Tablet 2 TABLET PO (22:31)
[2024-05-12 22:50] VITALS: RESP 17
[2024-05-13] MEDS: Acetaminophen 500 MG Tablet 1000 MG PO ×3 (05:49→22:44)
[2024-05-13] MEDS: Gabapentin 600 MG Tablet PO ×5 (05:49→22:44)
[2024-05-13] MEDS: Sucralfate 1 GM Tablet PO ×4 (05:49→22:44)
[2024-05-13] MEDS: traMADol 50 MG Tablet PO ×4 (05:49→22:44)
[2024-05-13] MEDS: Tamsulosin HCl 0.4 MG Capsule PO (09:14)
[2024-05-13] MEDS: Senna/Docusate Sodium 1 Tablet 2 TABLET PO ×2 (09:14→22:44)
[2024-05-13] MEDS: Finasteride 5 MG Tablet PO (09:14)
[2024-05-13] MEDS: Multivitamins,Therapeutic Tablet 1 TABLET PO (09:15)
[2024-05-13] MEDS: Pantoprazole Sodium 40 MG Tablet PO ×2 (09:15→22:44)
[2024-05-13] MEDS: Menthol/Lanolin/Calamine/Znox 113 GM Tube 1 APPLIC TOPICAL ×2 (09:18→22:49)
[2024-05-13] MEDS: Nystatin Powder 15gm Bottle 1 APPLIC TOPICAL ×2 (09:18→22:49)
[2024-05-13 09:25] VITALS: BP 115/56; PULSE 77; RESP 18; O2SAT 95
--- NOTE | 2024-05-13 14:20 | PCM.PN.DRR ---
Documented by User: Sean Martinez 05/13/24 14:48 TCU RX Drug Regimen Review Subjective/Objective Subjective/Objective Subjective: TCU April note. 69 YOM TCU resident sent to ER due to back pain. Hospitalized for L2 fracture, herniate lumbar disc, underwent T11 - L4 posterior spinal fusion, L2 laminectomy decompression 04/13/2024, complicated by postoperative anemia, hyponatremia, recent left hip fracture, underwent left hip ORIF cephalomedullary gamma nailing 04/06/2024. Admitted to TCU with debility for strengthening and rehabilitation. Objective: Allergies cephalexin (From Keflex) Allergy (Intermediate, Verified 04/28/24 16:20) Rash Sulfa (Sulfonamide Antibiotics) Allergy (Verified 04/28/24 16:20) Hives Current Medications Generic Name Dose Route Start Last Admin Trade Name Freq PRN Reason Stop Dose Admin Acetaminophen 1,000 mg 04/18/24 22:00 05/13/24 13:20 Acetaminophen 500 Mg Tablet PO 1,000 mg Q8 SINA Administration Calamine/Phenol 1 applic 04/18/24 22:00 05/13/24 09:18 Menthol/Lanolin/Calamine/Znox 113 Gm Tube TOPICAL 1 applic BID SINA Administration Protocol Cyclobenzaprine HCl 5 mg 04/18/24 17:24 05/12/24 14:15 Cyclobenzaprine Hcl 5 Mg Tablet PO 5 mg TID PRN PRN Administration muscle relax Finasteride 5 mg 04/19/24 10:00 05/13/24 09:14 Finasteride 5 Mg Tablet PO 5 mg DAILY SINA Administration Gabapentin 600 mg 04/18/24 18:00 05/13/24 13:20 Gabapentin 600 Mg Tablet PO 600 mg 5X/DAY SINA Administration Hydrocortisone 1 applic 04/18/24 22:55 04/18/24 23:20 Hydrocortisone 2.5% Crm TOPICAL 1 applic BID PRN SINA Administration Protocol Loratadine 10 mg 04/22/24 09:07 04/23/24 00:05 Loratadine 10 Mg Tablet PO 10 mg DAILY PRN Administration pruritus Magnesium Citrate 300 ml 04/18/24 21:06 04/19/24 14:59 Magnesium Citrate 300 Ml PO 300 ml DAILY PRN Administration Constipation Mirtazapine 7.5 mg 04/25/24 22:00 05/12/24 22:31 Mirtazapine 15 Mg Tablet PO 7.5 mg QHS SINA Administration Multivitamins 1 tablet 04/19/24 08:00 05/13/24 09:15 Multivitamins,Therapeutic Tablet PO 1 tablet BREAKFAST SINA Administration Nystatin 1 applic 04/28/24 22:00 05/13/24 09:18 Nystatin Powder 15gm Bottle TOPICAL 1 applic BID SINA Administration Protocol Oxycodone HCl 5 - 10 mg 04/18/24 17:24 05/05/24 03:07 Oxycodone 5 Mg Tablet PO 10 mg Q4H PRN PRN Administration Pain Score 1-10 Pantoprazole Sodium 40 mg 04/28/24 22:00 05/13/24 09:15 Pantoprazole Sodium 40 Mg Tablet PO 07/21/24 19:00 40 mg BID SINA Administration Polyethylene Glycol 17 gm 04/19/24 10:00 05/13/24 09:15 Polyethylene Glycol 3350 17 Gm Packet PO Not Given DAILY SINA Senna/Docusate Sodium 2 tablet 04/18/24 22:00 05/13/24 09:14 Senna/Docusate Sodium 1 Tablet PO 2 tablet BID SINA Administration Sodium Chloride 10 - 40 ml 04/30/24 03:47 04/30/24 21:20 0.9% Saline Lock 10 Ml Syringe IV 10 ml UD PRN Administration SALINE FLUSH Sucralfate 1 gm 04/28/24 22:00 05/13/24 11:20 Sucralfate 1 Gm Tablet PO 05/26/24 22:00 1 gm 1HR_ACHS SINA Administration Tamsulosin HCl 0.4 mg 04/19/24 10:00 05/13/24 09:14 Tamsulosin Hcl 0.4 Mg Capsule PO 0.4 mg DAILY SINA Administration Tramadol HCl 50 mg 04/18/24 22:00 05/13/24 11:20 Tramadol 50 Mg Tablet PO 50 mg 4X/DAY SINA Administration Problem List Cellulitis (Acute) Drug rash (Acute) Acute blood loss anemia (Acute) Hyponatremia (Acute) Hypocalcemia (Acute) Muscle spasm (Acute) Insomnia (Acute) BPH (benign prostatic hyperplasia) (Acute) GERD (gastroesophageal reflux disease) (Acute) Debility (Acute) Vital Signs Temp Pulse Resp BP Pulse Ox O2 Del Method 98.1 F 77 18 115/56 L 95 Room Air 05/12/24 09:03 05/13/24 09:25 05/13/24 09:25 05/13/24 09:25 05/13/24 09:25 05/13/24 11:00 Oxygen Delivery Method Room Air Weight: 111.493 kg Body Mass Index (BMI) 30.7 Sodium 137 mmol/L (136-145) 05/10/24 05:23 Potassium 3.9 mmol/L (3.5-5.1) 05/10/24 05:23 Chloride 102 mmol/L (98-107) 05/10/24 05:23 Carbon Dioxide 31.0 mmol/L (21.0-32.0) 05/10/24 05:23 Anion Gap 3 (5-15) L 05/10/24 05:23 BUN 19 mg/dL (7-18) H 05/10/24 05:23 Creatinine 0.62 mg/dL (0.70-1.30) L 05/10/24 05:23 Est GFR (MDRD) Af Amer 165 mL/min (>60) 05/10/24 05:23 Est GFR (MDRD) Non-Af 137 mL/min (>60) 05/10/24 05:23 BUN/Creatinine Ratio 30.6 RATIO (10-20) H 05/10/24 05:23 Glucose 115 mg/dL (74-106) H 05/10/24 05:23 Assessment/Plan: 1. Pain: acetaminophen 1000mg PO Q8, tramadol 50mg PO 4x/day and oxycodone 5-10mg PO Q4H PRN pain 1-10. Resident has had 38 doses of oxycodone for pain scores of 6-10 in the back, with his last dose on 05/05/24. Please continue to monitor for increased pain, PRN usage, constipation, respiratory depression, renal function, confusion, falls/fractures (BEERs). 2. Bowel: Miralax 17gm PO daily, senna/docusate 2T PO BID and magnesium citrate 300mL PO daily PRN constipation. Resident had a dose of magnesium citrate on 04/19/24 and none since. Please continue to monitor for constipation, diarrhea and PRN usage. Last documented bowel movement was 05/13/24. 5. Muscle spasm: cyclobenzaprine 5mg PO TID PRN muscle relax. Resident has had 35 doses so far. Please continue to monitor for PRN usage, dementia (BEERs), anticholinergic side effects (BEERs) and muscle spasms. 6. BPH: finasteride 5mg PO daily and tamsulosin 0.4mg PO daily. Please continue to monitor for S/S of BPH, BP (last 115/56 mmHg). 7. Nutrition: multivitamin 1T PO daily. Please continue to monitor. 8. Skin irritation/rash/tinea corporis: calmoseptine topical BID, nystatin powder 1 application topically BID. Please continue to monitor for skin irritation and for resolution of tinea corporis. 9. Rash: loratadine 10mg PO daily and hydrocortisone 2.5% cream topical BID. Please continue to monitor for improvement of itching and rash, renal function. 10. Lumbar radiculopathy: gabapentin 600mg PO 5x/day. GDR not appropriate as this medication is being used for pain. Please continue to monitor for S/S of confusion, renal function, falls/fractures (BEERs). 11. GIB: pantoprazole 40 mg PO BID, sucralfate 1 gram PO 1 hour before meals and at bedtime. Please continue to monitor for s/s of a GIB, hemoglobin levels (Hgb = 10.6 g/dL on 05/10/24), for diarrhea that could indicate clostridium difficile infection, and for s/s of bone resorption such as fractures. Assessment/Plan for indications treated with psychotropic medications: 1. Appetite/Depression: mirtazapine 7.5 mg PO QHS. The patient was placed on this medication this admission so GDR not appropriate at this time. Please continue to monitor appetite, for depression, SI, for s/s of serotonin syndrome, drowsiness, constipation and dry mouth. Medical chart and medication regimen reviewed. The following medication irregularities or issues were identified: NA Date Date of Note: 05/13/24 Documented by User: Dr. Fernando Mejia MD 05/14/24 13:06 TCU RX Drug Regimen Review Provider Comments Provider responsibility Provider Comments to Recommendations by Pharmacy Agree
[2024-05-13] MEDS: cycloBENZAPRine HCl 5 MG TABLET PO (15:10)
[2024-05-13] MEDS: Mirtazapine 15 MG Tablet 7.5 MG PO (22:44)
[2024-05-14] MEDS: cycloBENZAPRine HCl 5 MG TABLET PO (03:29)
[2024-05-14] MEDS: traMADol 50 MG Tablet PO ×4 (05:52→21:07)
[2024-05-14] MEDS: Gabapentin 600 MG Tablet PO ×5 (05:52→21:07)
[2024-05-14] MEDS: Sucralfate 1 GM Tablet PO ×4 (05:53→21:07)
[2024-05-14] MEDS: Acetaminophen 500 MG Tablet 1000 MG PO ×3 (05:53→21:08)
--- NOTE | 2024-05-14 07:20 | NURSING ---
heavy forger helper called out reporting pt back dressing falling off, old dressing removed scant amt of nichole hankins noted. distal incision unapproximated since donna were removed by surgeon last week. no signs of infection. wound nurse consulted.
[2024-05-14] MEDS: Senna/Docusate Sodium 1 Tablet 2 TABLET PO ×2 (09:32→21:08)
[2024-05-14] MEDS: Pantoprazole Sodium 40 MG Tablet PO ×2 (09:32→21:08)
[2024-05-14] MEDS: Finasteride 5 MG Tablet PO (09:33)
[2024-05-14] MEDS: Tamsulosin HCl 0.4 MG Capsule PO (09:34)
[2024-05-14] MEDS: Multivitamins,Therapeutic Tablet 1 TABLET PO (09:34)
[2024-05-14] MEDS: Menthol/Lanolin/Calamine/Znox 113 GM Tube 1 APPLIC TOPICAL ×2 (09:37→21:09)
[2024-05-14] MEDS: Nystatin Powder 15gm Bottle 1 APPLIC TOPICAL ×2 (09:38→21:09)
[2024-05-14 16:00] VITALS: BP 133/72; PULSE 71; RESP 16; TEMP 36.3; O2SAT 95
[2024-05-14] MEDS: Mirtazapine 15 MG Tablet 7.5 MG PO (21:08)
[2024-05-14 23:30] VITALS: PULSE 83; RESP 16; O2SAT 98
[2024-05-15] MEDS: Sucralfate 1 GM Tablet PO ×4 (06:19→21:53)
[2024-05-15] MEDS: Gabapentin 600 MG Tablet PO ×5 (06:19→21:50)
[2024-05-15] MEDS: traMADol 50 MG Tablet PO ×4 (06:19→21:50)
[2024-05-15] MEDS: Acetaminophen 500 MG Tablet 1000 MG PO ×3 (06:19→21:51)
[2024-05-15] MEDS: Multivitamins,Therapeutic Tablet 1 TABLET PO (09:30)
[2024-05-15] MEDS: Finasteride 5 MG Tablet PO (09:30)
[2024-05-15] MEDS: Pantoprazole Sodium 40 MG Tablet PO ×2 (09:30→21:52)
[2024-05-15] MEDS: Tamsulosin HCl 0.4 MG Capsule PO (09:30)
[2024-05-15] MEDS: Senna/Docusate Sodium 1 Tablet 2 TABLET PO ×2 (09:30→21:51)
[2024-05-15] MEDS: Menthol/Lanolin/Calamine/Znox 113 GM Tube 1 APPLIC TOPICAL ×2 (09:33→21:54)
[2024-05-15] MEDS: Nystatin Powder 15gm Bottle 1 APPLIC TOPICAL ×2 (09:35→21:55)
[2024-05-15 16:00] VITALS: BP 121/65; PULSE 91; RESP 16; TEMP 37.3; O2SAT 95
--- NOTE | 2024-05-15 19:25 | PN.TCU_ITS ---
Subjective Subjective Patient seen, examined for regulatory visit. He is sitting in chair, ready for dinner. He has a smile on his face, which is something new. 04/28/[address] Tolbert showed esophageal candidiasis, duodenal ulcers. Candidiasis treated with 14 days of Fluconazole. 05/12/2024 left knee was injected with Kenalog, resident notes he is better able to bend left knee now. I encouraged him to continue to work hard in therapy. Nursing staff have noted lack of ambition, and sadness, but this evening, he is in good spirits, and seems ready to finish therapy so he can go home. Objective Data Objective Data Vital Signs: Vital Signs Temp Pulse Resp BP Pulse Ox O2 Del Method 99.2 F H 91 16 121/65 H 95 Room Air 05/15/24 16:00 05/15/24 16:00 05/15/24 16:00 05/15/24 16:00 05/15/24 16:00 05/15/24 16:00 Oxygen Delivery Method Room Air Weight: 111.493 kg Body Mass Index (BMI) 30.7 Intake & Output: Intake and Output for Last 24 Hours 05/13/24 05/14/24 05/15/24 23:59 23:59 23:59 Intake Total 1200 / 1200 960 / 960 680 / 680 Balance 1200 / 1200 960 / 960 680 / 680 Lab / Micro Data 05/10/24 05:23 05/10/24 05:23 Micro: Microbiology 05/15/24 09:30 Nasal Secretion SARS-CoV-2 Antigen (Rapid) - Final 05/08/24 09:45 Nasal Secretion SARS-CoV-2 Antigen (Rapid) - Final 05/01/24 05:30 Nasal Secretion SARS-CoV-2 Antigen (Rapid) - Final 04/26/24 11:23 Stool Stool Occult Blood (JARED) - Final Occult Blood Positive 04/24/24 05:30 Nasal Secretion SARS-CoV-2 Antigen (Rapid) - Final 04/19/24 11:55 Wound - Face Gram Stain - Final 04/19/24 11:55 Wound - Face Wound Culture - Final Presumptive C albicans Physical Exam Const alert General Appearance: cooperative HEENT normocephalic HEENT Narrative: Chin abrasion. Eyes PERRL and EOMs intact bilaterally Neck supple, no JVD and no carotid bruits Resp normal respiratory effort, normal air movement and clear to auscultation bilaterally Cardio regular rate and regular rhythm GI normal to inspection, nondistended, normoactive bowel sounds, non-tender and non-distended Back/Spine Back/Spine Narrative: TLSO brace. Extremity normal capillary refill General Extremity: Negative for edema Skin no rashes or lesions noted General Skin Exam: no breakdown Psych affect normal Appearance: appropriate Assessment & Plan Assessment/Plan (1) Debility: (2) Closed L2 vertebral fracture: (3) Herniated lumbar intervertebral disc: (4) Closed left hip fracture: QUALIFIERS: Encounter type: initial encounter Qualified Code(s): S72.002A - Fracture of unspecified part of neck of left femur, initial encounter for closed fracture (5) GERD (gastroesophageal reflux disease): (6) BPH (benign prostatic hyperplasia): (7) Insomnia: (8) Muscle spasm: PLAN: Plan 69 year old male with below past medical history hospitalized for L2 fracture, herniate lumbar disc, underwent T11 - L4 posterior spinal fusion, L2 laminectomy decompression 04/13/2024, complicated by postoperative anemia, hyponatremia, recent left hip fracture, underwent left hip ORIF cephalomedullary gamma nailing 04/06/2024, admitted to TCU with debility, here for rehabilitation, strengthening, prior to discharge home with . * Debility - PT/OT. * Pain - Tylenol 1000mg q8, Tramadol 50mg 4x/day, Oxycodone 5-10mg q4 prn. * Bowel - Miralax 17gm daily, senna/colace 2 tablets bid, Magnesium citrate 300mL daily prn. * Adult immunization - Administer pneumonia vaccine, covid vaccine, flu vaccine as appropriate. * DVT prophylaxis - Held due to GI bleed. * Muscle spasm - Flexeril 5mg tid prn. * GERD - Finasteride 5mg daily, Tamsulosin 0.4mg daily. * Lumbar radiculopathy - Gabapentin 600mg 5x/day. * Skin irritation - Calmoseptine topical bid, Hytone 2.5% topical bid. * Nutrition - MVI 1 tablet daily. * Pruritus - Loratadine 10mg daily prn. * Depression/appetite loss/insomnia - Mirtazapine 7.5mg qhs. * Tinea Corporis - Nystatin powder topical bid. * Duodenal ulcer - Pantoprazole 40mg bid thru 07/21/2024, Sucralfate 1gm achs thru 05/26/2024.
[2024-05-15] MEDS: cycloBENZAPRine HCl 5 MG TABLET PO (21:50)
[2024-05-15] MEDS: Mirtazapine 15 MG Tablet 7.5 MG PO (21:52)
[2024-05-15 23:29] VITALS: PULSE 79; RESP 16; O2SAT 96
[2024-05-16] MEDS: Gabapentin 600 MG Tablet PO ×5 (06:05→21:43)
[2024-05-16] MEDS: traMADol 50 MG Tablet PO ×4 (06:05→21:44)
[2024-05-16] MEDS: Acetaminophen 500 MG Tablet 1000 MG PO ×3 (06:06→21:44)
[2024-05-16] MEDS: Sucralfate 1 GM Tablet PO ×4 (06:06→21:43)
[2024-05-16] MEDS: Nystatin Powder 15gm Bottle 1 APPLIC TOPICAL ×2 (09:24→21:44)
[2024-05-16] MEDS: Finasteride 5 MG Tablet PO (09:24)
[2024-05-16] MEDS: Senna/Docusate Sodium 1 Tablet 2 TABLET PO ×2 (09:24→21:44)
[2024-05-16] MEDS: Pantoprazole Sodium 40 MG Tablet PO ×2 (09:24→21:43)
[2024-05-16] MEDS: Menthol/Lanolin/Calamine/Znox 113 GM Tube 1 APPLIC TOPICAL ×2 (09:24→21:44)
[2024-05-16] MEDS: Multivitamins,Therapeutic Tablet 1 TABLET PO (09:24)
[2024-05-16] MEDS: Tamsulosin HCl 0.4 MG Capsule PO (09:24)
[2024-05-16 14:16] VITALS: BMI 30.8
--- NOTE | 2024-05-16 15:05 | WOUNDNOTE ---
Was consulted on patient to assess the back incision. ELIAS Langston had changed the dressing already. Ivis showed this nurse the back incision photo. appears to be normal healing. there are no signs of infection noted. small amount of yellow slough noted to the superior incision but there is no redness noted. will follow as needed.
[2024-05-16 16:00] VITALS: BP 128/64; PULSE 79; RESP 16; TEMP 36.5; O2SAT 95
[2024-05-16] MEDS: Mirtazapine 15 MG Tablet 7.5 MG PO (21:43)
[2024-05-16] MEDS: cycloBENZAPRine HCl 5 MG TABLET PO (21:46)
[2024-05-17 05:37] LABS: Absolute Lymphocyte Count 1.66 X10^3/uL (0.83-4.51); Basophil# 0.06 X10^3/uL; Eosinophil# 0.21 X10^3/uL; Eosinophils% 3.6 % (0-5); Hematocrit 34.2 % (40-54); Hemoglobin 10.6 g/dL (13.0-16.5); Lymphocyte # 1.66 X10^3/ul (0.83-4.51); Lymphocyte % 28.8 % (19-41); Mean Corpuscular Hgb 30.2 pg (27.0-32.0); Mean Corpuscular Volume 97.4 fL (80-94); Mean Platelet Vol. 9.9 fl (6.2-12.0); Monocyte# 0.54 X10^3/uL; Monocyte% 9.4 % (0-10); NRBC Flagged by Analyzer 0 % (0-5); Neutrophil # 3.03 X10^3/uL (2.7-7.7); Neutrophil % 52.5 % (47-70); Platelet Count 167 K/mm3 (150-450); RBC Distribution Width CV 15.7 % (11.6-14.6); Red Blood Count 3.51 M/mm3 (4.6-6.2); White Blood Count 5.8 K/mm3 (4.4-11.0)
[2024-05-17 06:10] LABS: Anion Gap 5 (5-15); BUN 23 mg/dL (7-18); Calcium,Total 9.2 mg/dL (8.5-10.1); Chloride 103 mmol/L (98-107); Creatinine, Serum 0.55 mg/dL (0.70-1.30); EST Glomerular Filtration Rate 158 mL/min (>60); Est Glom Filt Rate - Afr Amer 191 mL/min (>60); Glucose 118 mg/dL (74-106); Potassium 3.9 mmol/L (3.5-5.1); Sodium Level 138 mmol/L (136-145)
[2024-05-17] MEDS: Gabapentin 600 MG Tablet PO ×5 (06:13→22:20)
[2024-05-17] MEDS: Acetaminophen 500 MG Tablet 1000 MG PO ×3 (06:13→22:21)
[2024-05-17] MEDS: traMADol 50 MG Tablet PO ×4 (06:13→22:20)
[2024-05-17] MEDS: Sucralfate 1 GM Tablet PO ×4 (06:14→22:21)
[2024-05-17 09:10] VITALS: BP 95/66; PULSE 92; RESP 16; TEMP 36.6; O2SAT 92
[2024-05-17] MEDS: Finasteride 5 MG Tablet PO (09:21)
[2024-05-17] MEDS: Pantoprazole Sodium 40 MG Tablet PO ×2 (09:22→22:20)
[2024-05-17] MEDS: Senna/Docusate Sodium 1 Tablet 2 TABLET PO ×2 (09:22→22:22)
[2024-05-17] MEDS: Nystatin Powder 15gm Bottle 1 APPLIC TOPICAL ×2 (09:23→22:16)
[2024-05-17] MEDS: Multivitamins,Therapeutic Tablet 1 TABLET PO (09:23)
[2024-05-17] MEDS: Menthol/Lanolin/Calamine/Znox 113 GM Tube 1 APPLIC TOPICAL ×2 (09:23→22:16)
[2024-05-17] MEDS: Tamsulosin HCl 0.4 MG Capsule PO (09:23)
[2024-05-17 22:00] VITALS: RESP 16
[2024-05-17] MEDS: Mirtazapine 15 MG Tablet 7.5 MG PO (22:22)
[2024-05-18] MEDS: Sucralfate 1 GM Tablet PO ×4 (06:03→23:11)
[2024-05-18] MEDS: Gabapentin 600 MG Tablet PO ×5 (06:03→23:10)
[2024-05-18] MEDS: traMADol 50 MG Tablet PO ×4 (06:03→23:10)
[2024-05-18] MEDS: Acetaminophen 500 MG Tablet 1000 MG PO ×3 (06:03→23:13)
[2024-05-18] MEDS: Senna/Docusate Sodium 1 Tablet 2 TABLET PO ×2 (09:04→23:11)
[2024-05-18] MEDS: Multivitamins,Therapeutic Tablet 1 TABLET PO (09:04)
[2024-05-18] MEDS: Finasteride 5 MG Tablet PO (09:05)
[2024-05-18] MEDS: Tamsulosin HCl 0.4 MG Capsule PO (09:05)
[2024-05-18] MEDS: Nystatin Powder 15gm Bottle 1 APPLIC TOPICAL ×2 (09:05→23:13)
[2024-05-18] MEDS: Pantoprazole Sodium 40 MG Tablet PO ×2 (09:06→23:12)
[2024-05-18] MEDS: Menthol/Lanolin/Calamine/Znox 113 GM Tube 1 APPLIC TOPICAL ×2 (09:07→23:14)
[2024-05-18 17:11] VITALS: BP 102/57; PULSE 70; RESP 16; TEMP 36.8; O2SAT 94
[2024-05-18] MEDS: Mirtazapine 15 MG Tablet 7.5 MG PO (23:11)
[2024-05-18] MEDS: cycloBENZAPRine HCl 5 MG TABLET PO (23:15)
[2024-05-19] MEDS: traMADol 50 MG Tablet PO ×4 (05:59→21:06)
[2024-05-19] MEDS: Gabapentin 600 MG Tablet PO ×5 (06:00→21:06)
[2024-05-19] MEDS: Sucralfate 1 GM Tablet PO ×4 (06:00→20:59)
[2024-05-19] MEDS: Acetaminophen 500 MG Tablet 1000 MG PO ×3 (06:00→21:00)
[2024-05-19] MEDS: Pantoprazole Sodium 40 MG Tablet PO ×2 (09:32→21:02)
[2024-05-19] MEDS: Finasteride 5 MG Tablet PO (09:32)
[2024-05-19] MEDS: Tamsulosin HCl 0.4 MG Capsule PO (09:32)
[2024-05-19] MEDS: Multivitamins,Therapeutic Tablet 1 TABLET PO (09:33)
[2024-05-19] MEDS: Senna/Docusate Sodium 1 Tablet 2 TABLET PO ×2 (09:33→21:00)
[2024-05-19] MEDS: Nystatin Powder 15gm Bottle 1 APPLIC TOPICAL ×2 (09:34→20:58)
[2024-05-19] MEDS: Menthol/Lanolin/Calamine/Znox 113 GM Tube 1 APPLIC TOPICAL ×2 (09:34→20:58)
[2024-05-19 20:00] VITALS: PULSE 72; O2SAT 94
[2024-05-19] MEDS: Mirtazapine 15 MG Tablet 7.5 MG PO (21:01)
[2024-05-20] MEDS: cycloBENZAPRine HCl 5 MG TABLET PO ×2 (02:44→20:55)
[2024-05-20] MEDS: Gabapentin 600 MG Tablet PO ×5 (05:58→20:59)
[2024-05-20] MEDS: Acetaminophen 500 MG Tablet 1000 MG PO ×3 (05:59→20:54)
[2024-05-20] MEDS: traMADol 50 MG Tablet PO ×4 (05:59→20:59)
[2024-05-20] MEDS: Sucralfate 1 GM Tablet PO ×4 (06:00→20:53)
[2024-05-20] MEDS: Pantoprazole Sodium 40 MG Tablet PO ×2 (09:28→20:53)
[2024-05-20] MEDS: Nystatin Powder 15gm Bottle 1 APPLIC TOPICAL ×2 (09:28→20:52)
[2024-05-20] MEDS: Senna/Docusate Sodium 1 Tablet 2 TABLET PO ×2 (09:28→20:57)
[2024-05-20] MEDS: Tamsulosin HCl 0.4 MG Capsule PO (09:28)
[2024-05-20] MEDS: Multivitamins,Therapeutic Tablet 1 TABLET PO (09:28)
[2024-05-20] MEDS: Menthol/Lanolin/Calamine/Znox 113 GM Tube 1 APPLIC TOPICAL ×2 (09:28→20:52)
[2024-05-20] MEDS: Finasteride 5 MG Tablet PO (09:28)
[2024-05-20 14:51] VITALS: BP 121/62; PULSE 85; RESP 16; TEMP 36.3; O2SAT 94
[2024-05-20] MEDS: Mirtazapine 15 MG Tablet 7.5 MG PO (20:53)
[2024-05-20] MEDS: oxyCODONE 5 MG Tablet PO (23:34)
[2024-05-21] MEDS: Gabapentin 600 MG Tablet PO ×5 (05:03→20:46)
[2024-05-21] MEDS: Acetaminophen 500 MG Tablet 1000 MG PO ×3 (05:04→20:50)
[2024-05-21] MEDS: traMADol 50 MG Tablet PO ×4 (05:04→20:46)
[2024-05-21] MEDS: Sucralfate 1 GM Tablet PO ×4 (06:05→20:48)
[2024-05-21] MEDS: Multivitamins,Therapeutic Tablet 1 TABLET PO (09:40)
[2024-05-21] MEDS: Tamsulosin HCl 0.4 MG Capsule PO (09:40)
[2024-05-21] MEDS: Pantoprazole Sodium 40 MG Tablet PO ×2 (09:40→20:48)
[2024-05-21] MEDS: Menthol/Lanolin/Calamine/Znox 113 GM Tube 1 APPLIC TOPICAL ×2 (09:40→20:47)
[2024-05-21] MEDS: Finasteride 5 MG Tablet PO (09:40)
[2024-05-21] MEDS: Senna/Docusate Sodium 1 Tablet 2 TABLET PO ×2 (09:40→20:50)
[2024-05-21] MEDS: Nystatin Powder 15gm Bottle 1 APPLIC TOPICAL ×2 (09:41→20:47)
[2024-05-21 10:00] VITALS: BP 124/65; PULSE 73; RESP 18; TEMP 36.3; O2SAT 95
[2024-05-21] MEDS: Mirtazapine 15 MG Tablet 7.5 MG PO (20:49)
[2024-05-21] MEDS: cycloBENZAPRine HCl 5 MG TABLET PO (20:53)
[2024-05-22] MEDS: Acetaminophen 500 MG Tablet 1000 MG PO ×3 (05:21→21:08)
[2024-05-22] MEDS: Gabapentin 600 MG Tablet PO ×5 (05:21→21:06)
[2024-05-22] MEDS: traMADol 50 MG Tablet PO ×4 (05:22→21:06)
[2024-05-22] MEDS: Sucralfate 1 GM Tablet PO ×4 (06:09→21:06)
[2024-05-22 10:03] VITALS: BP 116/58; PULSE 81; RESP 16; TEMP 36.3; O2SAT 93
[2024-05-22] MEDS: Menthol/Lanolin/Calamine/Znox 113 GM Tube 1 APPLIC TOPICAL ×2 (10:06→21:07)
[2024-05-22] MEDS: Finasteride 5 MG Tablet PO (10:06)
[2024-05-22] MEDS: Tamsulosin HCl 0.4 MG Capsule PO (10:06)
[2024-05-22] MEDS: Senna/Docusate Sodium 1 Tablet 2 TABLET PO ×2 (10:06→21:08)
[2024-05-22] MEDS: Pantoprazole Sodium 40 MG Tablet PO ×2 (10:06→21:07)
[2024-05-22] MEDS: Multivitamins,Therapeutic Tablet 1 TABLET PO (10:06)
[2024-05-22] MEDS: Nystatin Powder 15gm Bottle 1 APPLIC TOPICAL ×2 (10:07→21:06)
--- NOTE | 2024-05-22 16:55 | CASEMGMT ---
Social Work SW spoke with pt, , dtr Minerva, at bedside and dtr Brandy, via conference call to discuss DC plans. SW explained after ongoing extensive discussions with IDT, pt no longer meets skilled criteria for ongoing stay under Medicare benefit. Explained pt is not making functional progress and no longer requires the skills of therapists and nurses at this level of care. Pt remains a reuben lift, as SeraLift is no longer appropriate to use, per therapy. This would require a two person assist with the use of the reuben lift for transfers and ADL care. Explained IDTs recommendations for DC are transferring to a SNF at intermediate level of care for ongoing recovery. SW answered questions for family with cost, benefits and therapy at a SNF. Educated to private pay room and board, with the potential for additional charges for medical care, and therapy will be covered under Medicare Part B about 3 times a week. SW explained the goal DC date is 05/28 or 05/29, pending availability of accepting SNF or other destination of pt's choosing. Pt inquired about the possibility of discharging to his dtr, Brandy's house in [place], with her . SW explained dtr's house would need to be able to accommodate the space for a reuebn lift, therapy would need to train dtr and PUJA on the use of the lift, which would require two people, and providing care for pt. SW explained insurance may cover the lift at 80%, and this worker can coordinate skilled HHC through insurance. Informed pt of hiring [employer] to assist with providing care in the home, if elected. and Minerva did not express the plan being in their favor, but Brandy would ultimately be the one making that decision. Pt acknowledged. Family continued asking questions pertaining to Medicare guidelines and the basis of issuing a DC date. Family having difficulty understanding the ambiguous language of Medicare guidelines pertaining to progress and skilled need. SW assisted in providing several different ways to explain the benefit and skilled care, though acknowledged the difficulty of understanding the information. Family and pt voiced the contradiction to therapists giving positive feedback during sessions, but this worker stating pt is not making progress and setting a DC date. SW validated feelings. Offered therapists and IDT are the pt's 'cheerleaders' and are going to give positive reinforcement during sessions to assist pt in making improvements, and not discounting the small progress throughout pt's stay. Though, pt's progress is not at a functional or skillable level moving forward. Family inquired about pt's efforts and motivation. SW directed to pt to answer and pt confirmed he is motivated and has given his best efforts during therapy. SW agreed and offered each pt is different and their level of ability to participate in therapy is variable. Family questioned the likelihood of pt making further progress to return home at another SNF if he is receiving less intensive and less often therapy sessions. SW acknowledged and explained pt's body may need more time to rest and recover before participating in skillable therapy again. Therapy may not always benefit a pt; it may hinder a pt. Explained the part B therapy is designed to maintain pt's current level of functioning and prevent further decline. If/when pt makes further progress, the SNF can assess for skillable services and Medicare part A can resume, as that is in the SNFs interest to skill patients as well. Family struggling to accept the information and need for DC along with transfer to a SNF. Dtr, Brandy, defensively questioning the lack of progress d/t [facility]'s missing pt's spinal fracture upon admission, which set pt back further in progress. SW voiced appreciation for dtr advocating for pt, but cannot speak to that allegation, and if dtr would like to discuss that concern, she can speak with the appropriate green party. This worker though, can assist within scope of discharge planning. SW informed dtr that IDT has been discussing pt's lack of functional progress openly over the past couple weeks, and have advocated for continued improvement, i.e. attempting SeraLift in therapy. SW assisted in explaining the 'function' of progressing, if pt tolerates SeraLift 30 more seconds than the day prior, but was not using appropriate or safe form, that is not functional progress. Family expressed understanding to examples given by this worker. However, dtr Brandy, ended her involvement via phone in this conversation. Family inquired further about the process for a SNF. SW educated to this worker provided family with a list of SNF providers, pt to select preferences, and this worker to place referrals to SNFs and communicate acceptance/denial. Family expressed appreciation of all explanation and time, and will process the information, discuss with each other and follow up with SW when ready to discuss the DC plan. Though Minerva did request a list of SNFs to review in the meantime. SW agreed and returned with list of SNF providers in [facility] including quality and resource data via [employer] Guide. SW will continue to follow. Time Spent: 60 minutes JAMAAL Galindo
[2024-05-22] MEDS: Mirtazapine 15 MG Tablet 7.5 MG PO (21:08)
[2024-05-22] MEDS: oxyCODONE 5 MG Tablet PO (23:02)
[2024-05-23] MEDS: oxyCODONE 5 MG Tablet PO ×2 (03:03→21:56)
[2024-05-23] MEDS: Gabapentin 600 MG Tablet PO ×5 (06:04→21:39)
[2024-05-23] MEDS: Sucralfate 1 GM Tablet PO ×4 (06:04→21:39)
[2024-05-23] MEDS: Acetaminophen 500 MG Tablet 1000 MG PO ×3 (06:04→21:41)
[2024-05-23] MEDS: traMADol 50 MG Tablet PO ×4 (06:05→21:39)
[2024-05-23] MEDS: Pantoprazole Sodium 40 MG Tablet PO ×2 (08:38→21:40)
[2024-05-23] MEDS: Multivitamins,Therapeutic Tablet 1 TABLET PO (08:38)
[2024-05-23] MEDS: Tamsulosin HCl 0.4 MG Capsule PO (08:39)
[2024-05-23] MEDS: Menthol/Lanolin/Calamine/Znox 113 GM Tube 1 APPLIC TOPICAL ×2 (08:39→21:39)
[2024-05-23] MEDS: Finasteride 5 MG Tablet PO (08:39)
[2024-05-23] MEDS: Senna/Docusate Sodium 1 Tablet 2 TABLET PO ×2 (08:39→21:40)
[2024-05-23] MEDS: Nystatin Powder 15gm Bottle 1 APPLIC TOPICAL ×2 (08:40→21:39)
[2024-05-23] MEDS: cycloBENZAPRine HCl 5 MG TABLET PO ×2 (08:41→19:52)
--- NOTE | 2024-05-23 10:33 | CASEMGMT ---
Social Work SW received phone call from dtrBrandy, with follow up questions. Dtr first shared context of her personal situation yesterday during phone conversation. Dtr shared she was on her way to the ER with a broken ankle, and did apologize for her bluntness yesterday. SW empathized with injury and appreciative of context and apology, though acknowledged dtr was advocating for her father. Dtr confirmed pt will not be able to DC to her house, though, regardless of her injury, her works and they would not be able to accommodate the level of care pt requires. Dtr explained she and family had observed pt's mental health improving over the last week, pt voicing want to go home, seeing more motivation from pt, and sitting up in his chair out of bed more often. Dtr inquired if this is taken into consideration for basis on continued stay. SW explained while those things are positive, unfortunately, it still is not a skillable need and constitute continued stay under Medicare.SW educated that average LOS on TCU is 19 days, and pt is on approximately day 43. Dtr thanked worker for that concrete information, and requested that be shared with pt and family, as it does show IDT has given ample time to see progress in pt. SW agreed to follow. Dtr expressed her understanding and agreement with all information shared from this worker. Dtr shared, I appreciate your professionalism, explanation and time. I know I'm not always easy to talk to. SW thanked dtr and expressed understanding. JAMAAL Galindo
[2024-05-23 10:45] VITALS: BP 108/49; PULSE 77; RESP 17; TEMP 36.7; O2SAT 93
--- NOTE | 2024-05-23 15:51 | CASEMGMT ---
Social Work Dtr, Minerva, presented to this worker's office requesting to meet with pt, and herself in pt's room. SW agreed. SW presented to pt's room. Family attended therapy session and expressed gaining more insight and clarification from therapists, though they do have additional questions. Minerva also noted the improvement in pt's mental health and voicing wanting to go home prior to conversation yesterday, and inquired about continued coverage for the positive impact being seen from the antidepressant and possible future improvements. SW acknowledged the context of pt's disappointment with conversation yesterday given the context of his improved mood and motivation, then given a DC date. Validated pt's feelings. Pt appreciative. SW noted conversation with Brandy, and as explained to her, though that is positive, it is not a skillable need. That can be managed in the community or in a SNF, but if progress is made with part B therapies, the facility can determine skilling under part A again. SW answered additional questions pertaining to SNF care and coverage, Medicaid eligibility, which family/pt stated they have multiple investments and would not be eligible. Family expressed concern with transport for appt. SW explained Medicare does not guarantee cover for a cot; it will likely be an OOP cost for the pt, as it has been for TCU as well. The accepting SNF will assist in arranging transport and will provide support for medical necessity, but pt would be billed for any amount Medicare does not cover which can be 100%. Pt/family expressed understanding. Dtr inquired about the timing for issuing a DC date, as Brandy was under the impression a DC date would be issued after IDT Huddle on either Wednesday or Wednesday during the week. [facility] confirmed IDT does hold Huddle's every Wednesday, though, a DC date can come at any time, and given the holidays, Wednesday (05/22) was the day this worker held the discussion for a DC date. Explained Medicare requires a 3-day notice, but this worker/IDT has given an 8 day notice for DC to allow time for proper planning. Family/pt would like to tour SNFs, but did provide initial choices: [facility], [facility], [facility]. SW educated that [facility] has semi-private rooms only, and provided estimated pricing for all SNFs. Pt not in favor of a semi-private room but did agree to the referral. SW remains available for further questions and needs. SW placed referrals to [facility], [facility], [facility] via [facility]. Will continue to follow. Mackenzie Potter, LAP MACHINE OPERATOR PUMP OPERATOR [employer]
[2024-05-23 18:00] VITALS: BMI 31.9
[2024-05-23] MEDS: Mirtazapine 15 MG Tablet 7.5 MG PO (21:40)
[2024-05-24] MEDS: traMADol 50 MG Tablet PO ×4 (05:04→21:34)
[2024-05-24] MEDS: Acetaminophen 500 MG Tablet 1000 MG PO ×3 (05:04→21:35)
[2024-05-24] MEDS: Gabapentin 600 MG Tablet PO ×5 (05:04→21:34)
[2024-05-24] MEDS: Sucralfate 1 GM Tablet PO ×4 (06:06→21:34)
[2024-05-24 06:22] LABS: Absolute Lymphocyte Count 1.47 X10^3/uL (0.83-4.51); Absolute Neutrophil Count 2.6 X10^3/uL (2.0-7.7); Basophil# 0.02 X10^3/uL; Basophil% 0.4 % (0-1); Eosinophils% 4.1 % (0-5); Hematocrit 33.5 % (40-54); Hemoglobin 10.3 g/dL (13.0-16.5); Lymphocyte # 1.47 X10^3/ul (0.83-4.51); Lymphocyte % 30.1 % (19-41); Mean Corp Hgb Conc 30.7 g/dL (32-36); Mean Corpuscular Hgb 29.9 pg (27.0-32.0); Mean Corpuscular Volume 97.1 fL (80-94); Mean Platelet Vol. 10.1 fl (6.2-12.0); Monocyte# 0.42 X10^3/uL; Monocyte% 8.6 % (0-10); NRBC Flagged by Analyzer 0 % (0-5); Neutrophil # 2.63 X10^3/uL (2.7-7.7); Neutrophil % 53.9 % (47-70); Platelet Count 152 K/mm3 (150-450); RBC Distribution Width CV 15.7 % (11.6-14.6); Red Blood Count 3.45 M/mm3 (4.6-6.2); White Blood Count 4.9 K/mm3 (4.4-11.0)
[2024-05-24 07:58] LABS: Anion Gap 5 (5-15); BUN 20 mg/dL (7-18); BUN/Creat Ratio 37.9 RATIO (10-20); Calcium,Total 8.8 mg/dL (8.5-10.1); Chloride 104 mmol/L (98-107); Creatinine, Serum 0.53 mg/dL (0.70-1.30); EST Glomerular Filtration Rate 165 mL/min (>60); Est Glom Filt Rate - Afr Amer 199 mL/min (>60); Estimated Creatinine Clearance 120.03 ml/min; Glucose 106 mg/dL (74-106); Potassium 3.8 mmol/L (3.5-5.1); Sodium Level 139 mmol/L (136-145)
[2024-05-24 09:32] VITALS: BP 121/61; PULSE 74; RESP 16; TEMP 36.1; O2SAT 94
[2024-05-24] MEDS: Finasteride 5 MG Tablet PO (09:35)
[2024-05-24] MEDS: Pantoprazole Sodium 40 MG Tablet PO ×2 (09:35→21:34)
[2024-05-24] MEDS: Menthol/Lanolin/Calamine/Znox 113 GM Tube 1 APPLIC TOPICAL ×2 (09:35→21:33)
[2024-05-24] MEDS: Multivitamins,Therapeutic Tablet 1 TABLET PO (09:35)
[2024-05-24] MEDS: Senna/Docusate Sodium 1 Tablet 2 TABLET PO ×2 (09:35→21:35)
[2024-05-24] MEDS: Nystatin Powder 15gm Bottle 1 APPLIC TOPICAL ×2 (09:35→21:36)
[2024-05-24] MEDS: Tamsulosin HCl 0.4 MG Capsule PO (09:35)
[2024-05-24] MEDS: Mirtazapine 15 MG Tablet 7.5 MG PO (21:36)
[2024-05-24] MEDS: oxyCODONE 5 MG Tablet PO (22:38)
[2024-05-25] MEDS: cycloBENZAPRine HCl 5 MG TABLET PO (03:11)
[2024-05-25] MEDS: Sucralfate 1 GM Tablet PO ×4 (05:53→20:23)
[2024-05-25] MEDS: Acetaminophen 500 MG Tablet 1000 MG PO ×3 (05:53→20:24)
[2024-05-25] MEDS: traMADol 50 MG Tablet PO ×4 (05:54→20:23)
[2024-05-25] MEDS: Gabapentin 600 MG Tablet PO ×5 (05:54→20:23)
[2024-05-25 09:14] VITALS: BP 122/52; PULSE 77; RESP 16; TEMP 36.1; O2SAT 95
[2024-05-25] MEDS: Senna/Docusate Sodium 1 Tablet 2 TABLET PO ×2 (09:16→20:25)
[2024-05-25] MEDS: Pantoprazole Sodium 40 MG Tablet PO ×2 (09:16→20:26)
[2024-05-25] MEDS: Finasteride 5 MG Tablet PO (09:16)
[2024-05-25] MEDS: Tamsulosin HCl 0.4 MG Capsule PO (09:16)
[2024-05-25] MEDS: Multivitamins,Therapeutic Tablet 1 TABLET PO (09:16)
[2024-05-25] MEDS: Menthol/Lanolin/Calamine/Znox 113 GM Tube 1 APPLIC TOPICAL ×2 (09:17→20:33)
[2024-05-25] MEDS: Nystatin Powder 15gm Bottle 1 APPLIC TOPICAL ×2 (09:17→20:33)
--- NOTE | 2024-05-25 13:05 | CASEMGMT ---
Social Work SW received call from dtrMinerva, inquiring about updates and requesting additional SNF referrals in [employer]. SW updated that [facility] can accept, but they only have a skilled private room available at $400/day. [facility] is reviewing and no response yet from [facility]. Dtr thanked this worker. Requested referral to [facility]. SW agreed. Offered to send list of other [employer] [facility] SNFs with data. Dtr appreciative. SW sent via [employer] Link. Placed referral to [facility] via [facility]. Will continue to follow. JAMAAL Galindo
--- NOTE | 2024-05-25 13:17 | CASEMGMT ---
Addendum entered by Mackenzie Potter 05/26/24 11:13: Received call from [facility] stating they can accept pt, but they are unable to accommodate a DC on 05/29 or over the weekend, thus the pt would need to DC this date. SW to speak with pt/family and IDT and update WC. SW phoned Minerva with information and inquired about FOC. Dtr is going to speak with the pt and on decision and notify this worker. SW will continue to follow. Addendum entered by Mackenzie Potter 05/26/24 10:18: SW left VM with dtr Minerva, to update on SNF outcomes. Requested to provide additional SNF choices or this worker can secure [facility]. Addendum entered by Mackenzie Potter 05/26/24 08:22: [facility] reviewing after tour with dtr. [facility] cannot accept. SW phoned [facility], and they are reviewing to determine if they can accommodate his cot transport for his appt. Will continue to follow. Original Note: Social Work [place] does not have beds available. [facility] phoned dtr to notify and not to tour. Dtr then requested [facility] be referred to. SW completed referral via [employer]Port. Will continue to follow. Mackenzie DOS SANTOSW
--- NOTE | 2024-05-25 13:27 | NURSING ---
career technology teacher reported positive for clot LLE thigh down leg. will updated dr cates
[2024-05-25 14:00] VITALS: PULSE 76; RESP 16
--- NOTE | 2024-05-25 14:20 | NURSING ---
Addendum entered by Sonal Strong 05/25/24 15:04: correction: xarelto 15mg bid x21 days. Original Note: dr cates notified of doppler results, new order xarelto 10mg BID x21 days, then 20mg daily x3 months
[2024-05-25] MEDS: Rivaroxaban 15 MG Tablet PO ×2 (16:00→22:06)
--- NOTE | 2024-05-25 16:08 | NURSING ---
teaching booklet given for DVT, reviewed symptoms of PE & to report to nursing any concerns/symptoms. pt speaking to & updating her on doppler results.
--- NOTE | 2024-05-25 16:55 | NURSING ---
dr cates would like pt to have another dose of xarelto tonight at bedtime.first dose given at 1600.
--- NOTE | 2024-05-25 17:20 | NURSING ---
dr cates in to speak with pt at this time
--- NOTE | 2024-05-25 20:13 | DS.PCM_ITS ---
Providers Date of Admission: 04/18/24 Primary Care Physician: Dr. Jalil Tubbs MD Consultations 04/26/24 17:26 Consult: Gastroenterology Routine Consulting Provider: [facility] Reason for Consult: Anemia, +hemoccult. EMERGENT Consult: No MD Notified: Yes Date Notified: 04/27/24 Time Notified: 09:41 Method of Notification: Text Reason For Visit: L2 FRACTURE Diagnosis Discharge Diagnosis (1) Debility: Status: Acute Code(s): R53.81 - Other malaise (2) Closed L2 vertebral fracture: Status: Inactive Code(s): S32.029A - Unspecified fracture of second lumbar vertebra, initial encounter for closed fracture (3) Herniated lumbar intervertebral disc: Status: Inactive Code(s): M51.26 - Other intervertebral disc displacement, lumbar region (4) Closed left hip fracture: Status: Resolved Code(s): S72.002A - Fracture of unspecified part of neck of left femur, initial encounter for closed fracture Qualifiers: Encounter type: initial encounter Qualified Code(s): S72.002A - Fracture of unspecified part of neck of left femur, initial encounter for closed fracture (5) GERD (gastroesophageal reflux disease): Status: Acute Code(s): K21.9 - Gastro-esophageal reflux disease without esophagitis (6) BPH (benign prostatic hyperplasia): Status: Acute Code(s): N40.0 - Benign prostatic hyperplasia without lower urinary tract symptoms (7) Insomnia: Status: Acute Code(s): G47.00 - Insomnia, unspecified (8) Muscle spasm: Status: Acute Code(s): M62.838 - Other muscle spasm Plan 69 year old male with below past medical history hospitalized for L2 fracture, herniate lumbar disc, underwent T11 - L4 posterior spinal fusion, L2 laminectomy decompression 04/13/2024, complicated by postoperative anemia, hyponatremia, recent left hip fracture, underwent left hip ORIF cephalomedullary gamma nailing 04/06/2024, admitted to TCU with debility, here for rehabilitation, strengthening, prior to discharge home with . * Debility - PT/OT. * Pain - Tylenol 1000mg q8, Tramadol 50mg 4x/day, Oxycodone 5-10mg q4 prn. * Bowel - Miralax 17gm daily, senna/colace 2 tablets bid, Magnesium citrate 300mL daily prn. * Adult immunization - Administer pneumonia vaccine, covid vaccine, flu vaccine as appropriate. * DVT prophylaxis - Held due to GI bleed. * Muscle spasm - Flexeril 5mg tid prn. * GERD - Finasteride 5mg daily, Tamsulosin 0.4mg daily. * Lumbar radiculopathy - Gabapentin 600mg 5x/day. * Skin irritation - Calmoseptine topical bid, Hytone 2.5% topical bid. * Nutrition - MVI 1 tablet daily. * Pruritus - Loratadine 10mg daily prn. * Depression/appetite loss/insomnia - Mirtazapine 7.5mg qhs. * Tinea Corporis - Nystatin powder topical bid. * Duodenal ulcer - Pantoprazole 40mg bid thru 07/21/2024, Sucralfate 1gm achs thru 05/26/2024. Medications at Discharge Home Medications finasteride 5 mg tablet 5 mg PO DAILY prostate 04/05/24 tamsulosin 0.4 mg capsule 0.4 mg PO DAILY Bph 04/05/24 cyclobenzaprine 5 mg tablet 5 mg PO TID PRN muscle relax 04/18/24 multivitamin (Daily Multi-Vitamin tablet) 1 tab PO DAILY supp 04/18/24 polyethylene glycol 3350 17 gram/dose oral powder (Natura-LAX) 17 g PO DAILY bowels 04/18/24 acetaminophen 500 mg tablet 1,000 mg (2 x 500 mg) PO Q8 #0 tabs 05/25/24 gabapentin 600 mg tablet 600 mg PO 5X/DAY #0 tabs 05/25/24 loratadine 10 mg tablet (Allergy Relief (loratadine)) 10 mg PO DAILY PRN pruritus #0 tabs 05/25/24 magnesium citrate 300 ml PO DAILY PRN Constipation #0 mL 05/25/24 menthol 0.44 %-zinc oxide 20.6 % topical ointment (Calmoseptine) 1 applic topical BID #0 grams 05/25/24 mirtazapine 15 mg tablet 7.5 mg (1/2 x 15 mg) PO QHS #0 tabs 05/25/24 nystatin 100,000 unit/gram topical powder (Nyamyc) 1 applic topical BID #0 grams 05/25/24 oxycodone 5 mg tablet 5 - 10 mg (1 - 2 x 5 mg) PO Q4H PRN PRN Pain Score 1-10 3 days #36 tabs 05/25/24 pantoprazole 40 mg tablet,delayed release 40 mg PO BID #0 tabs 05/25/24 rivaroxaban 15 mg tablet (Xarelto) 15 mg PO BID 17 days #34 tabs 05/25/24 rivaroxaban 20 mg tablet 20 mg PO DINNER #30 tabs 05/25/24 sennosides 8.6 mg-docusate sodium 50 mg tablet (Stimulant Laxative Plus) 2 tab PO BID #0 tabs 05/25/24 tramadol 50 mg tablet 50 mg PO 4X/DAY 3 days #12 tabs 05/25/24 Hospital Course Operations - (See below.) Procedures EGD Summary of Care Provided Minutes Spent on Discharge: 35 Hospital Course: 69 year old male with below past medical history hospitalized for L2 fracture, herniate lumbar disc, underwent T11 - L4 posterior spinal fusion, L2 laminectomy decompression 04/13/2024, complicated by postoperative anemia, hyponatremia, recent left hip fracture, underwent left hip ORIF cephalomedullary gamma nailing 04/06/2024, admitted to TCU with debility, here for rehabilitation, strengthening, prior to discharge home with . 04/28/2024 Dr. Tolbert EGD: Impressions : - Esophageal plaques were found, consistent with candidiasis. - Normal stomach. - Non-bleeding duodenal ulcers with no stigmata of bleeding. Biopsied. Recommendations : - Return patient to referring hospital for ongoing care. - Resume previous diet. - Use Protonix (pantoprazole) 40 mg PO BID for 12 weeks. (07/27/2024) - Await pathology results. - Use sucralfate tablets 1 gram PO QID for 4 weeks. (05/29/2024) - Continue present medications. 05/25/2024 Doppler ultrasound left lower extremity positive DVT, treat with Xarelto 15mg po bid x 21 days, then 20mg daily thru 08/23/2024. Discharge to SNF 05/29/2024, intermediate, part B therapies. Physical Exam Const alert General Appearance: cooperative HEENT normocephalic Eyes PERRL and EOMs intact bilaterally Neck supple, no JVD and no carotid bruits Resp normal respiratory effort, normal air movement and clear to auscultation bilaterally Cardio regular rate and regular rhythm GI normal to inspection, nondistended, normoactive bowel sounds, non-tender and non-distended Back/Spine Back/Spine Narrative: TLSO brace. Extremity normal capillary refill General Extremity: Negative for edema Skin no rashes or lesions noted General Skin Exam: no breakdown Psych affect normal Appearance: appropriate Weight / BMI Weight Weight: 116.687 kg Body Mass Index (BMI) 31.9 ABG / Lab / Microbiology Data 05/24/24 05:55 05/24/24 05:55 Microbiology: Microbiology 05/15/24 09:30 Nasal Secretion SARS-CoV-2 Antigen (Rapid) - Final 05/08/24 09:45 Nasal Secretion SARS-CoV-2 Antigen (Rapid) - Final 05/01/24 05:30 Nasal Secretion SARS-CoV-2 Antigen (Rapid) - Final 04/26/24 11:23 Stool Stool Occult Blood (JARED) - Final Occult Blood Positive 04/24/24 05:30 Nasal Secretion SARS-CoV-2 Antigen (Rapid) - Final 04/19/24 11:55 Wound - Face Gram Stain - Final 04/19/24 11:55 Wound - Face Wound Culture - Final Presumptive C albicans D/C Instructions Discharge Diet: No restrictions Discharge Activity: Return to Normal Activity, May Shower and Use Walker Weight Bearing Status: Weight bearing as tolerated Call your doctor if you observe: Fever of 101 or Higher, Inability to urinate, Inability to have a bowel movement, Shortness of breath, Dizziness, Fainting spells, Swelling in the ankles, Chest pain and Uncontrolled pain DC O2, CPAP, BIPAP Needs Home O2 Discharge instructions: No Additional Instructions: Discharge to SNF 05/29/2024, intermediate, part B therapies. Please Follow Up With: james Vigil MD When: As scheduled. Meaningful Use Info Meaningful Use Meaningful Use Diagnoses (Choose all that apply): None applicable Ischemic Stroke Statin Dosing Therapy Reference: STATIN DOSE THERAPY REFERENCE: * Patients > 75 years receive moderate or high dose statin therapy. * Patients 75 years or YOUNGER should receive HIGH intensity statin dose unless contraindicated. You will be required to document reason for non-treatment if statin daily dose does not meet guidelines. HIGH DOSE STATIN THERAPY DAILY Atorvastatin > than or = to 40 mg Rosuvastatin > than or = to 20 mg Amlodipine + Atorvastatin > than or = to 2.5/40 mg Ezetimibe + Simvastatin 10/80 mg Simvastatin 80mg Discharge Plan Admission Admit Date/Time: 04/18/24 16:35 Primary Reason for Your Visit: Debility. Attending Provider: Fernando Mejia Chi Primary Care Provider: Jalil Tubbs Instructions Additional Instructions / Restrictions: Discharge to SNF 05/29/2024, intermediate, part B therapies. Discharge Orders/Prescriptions Prescriptions: New gabapentin 600 mg Tablet 600 mg PO 5X/DAY Qty: 0 0RF acetaminophen 500 mg Tablet 1,000 mg PO Q8 Qty: 0 0RF loratadine [Allergy Relief (loratadine)] 10 mg tablet 10 mg PO DAILY PRN (Reason: pruritus) Qty: 0 0RF pantoprazole 40 mg Tablet,Delayed Release (Dr/Ec) 40 mg PO BID Qty: 0 0RF magnesium citrate Solution 300 ml PO DAILY PRN (Reason: Constipation) Qty: 0 0RF mirtazapine 15 mg Tablet 7.5 mg PO QHS Qty: 0 0RF nystatin [Nyamyc] 100,000 unit/gram Powder 1 applic topical BID Qty: 0 0RF Protocol: *Topical Application Instructions APPLICATION INSTRUCTIONS: apply to groin oxycodone 5 mg Tablet 5 - 10 mg PO Q4H PRN PRN (Reason: Pain Score 1-10) 3 Days Qty: 36 0RF menthol-zinc oxide [Calmoseptine] 0.44-20.6 % Ointment 1 applic topical BID Qty: 0 0RF Protocol: *Topical Application Instructions APPLICATION INSTRUCTIONS: bilateral buttocks Xarelto 15 mg Tablet 15 mg PO BID 17 Days Qty: 34 0RF rivaroxaban 20 mg Tablet 20 mg PO DINNER Qty: 30 0RF Rx Instructions: Start 06/16/2024 after 21 days of Xarelto 15mg po bid. Stop date 08/23/2024. sennosides-docusate sodium [Stimulant Laxative Plus] 8.6-50 mg Tablet 2 tab PO BID Qty: 0 0RF tramadol 50 mg Tablet 50 mg PO 4X/DAY 3 Days Qty: 12 0RF Continued finasteride 5 mg tablet 5 mg PO DAILY tamsulosin 0.4 mg capsule 0.4 mg PO DAILY multivitamin [Daily Multi-Vitamin] Tablet 1 tab PO DAILY polyethylene glycol 3350 [Natura-LAX] 17 gram/dose powder 17 g PO DAILY cyclobenzaprine 5 mg tablet 5 mg PO TID PRN (Reason: muscle relax) Discontinued gabapentin 600 mg tablet 600 mg PO .5x day famotidine 40 mg tablet 40 mg PO DAILY albuterol sulfate 2.5 mg /3 mL (0.083 %) Solution For Nebulization 2.5 mg inhalation Q2H PRN PRN (Reason: Dyspnea, wheezing) Qty: 0 0RF melatonin 3 mg Tablet 3 mg PO QHS PRN PRN (Reason: Insomnia) Qty: 0 0RF calcium carbonate 200 mg calcium (500 mg) Tablet,Chewable 500 mg PO TIDCM Qty: 0 0RF alum-mag hydroxide-simeth [Mag-Al Plus Extra Strength] 400-400-40 mg/5 mL Suspension 30 ml PO Q6H PRN PRN (Reason: Gastric Burning) Qty: 0 0RF Ensure Plus High Protein 0.08 gram-1.5 kcal/mL Liquid 120 ml PO TIDCM Qty: 0 0RF oxycodone 5 mg Tablet 5 - 10 mg PO Q4H PRN PRN (Reason: Pain Score 4-10) Qty: 0 0RF rivaroxaban 10 mg tablet 10 mg PO DAILY Qty: 30 0RF methocarbamol 500 mg tablet 500 mg PO TID PRN (Reason: spasms) Qty: 10 0RF tramadol 50 mg tablet 50 mg PO 4X/DAY mupirocin 2 % ointment 1 applic topical TID sennosides-docusate sodium [Stimulant Laxative Plus] 8.6-50 mg Tablet 1 tab PO BID Rx Instructions: hold for loose stools acetaminophen 500 mg Tablet 500 mg PO Q6H Referrals / Follow Up: Jalil Tubbs MD [Primary Care Provider] - Disposition Disposition (needs filled in before D/C Order can be placed): NonSkilled NH/Intermed Care
[2024-05-25] MEDS: Mirtazapine 15 MG Tablet 7.5 MG PO (20:25)
--- NOTE | 2024-05-25 20:25 | TREXTCAR_ITS ---
Diet Diet Order/Speech Therapy: 04/28/24 18:39 Diet: Regular - General Food consistency:: Regular Liquid Consistency:: Regular/Thin Type of Dietary Supplement:: Ensure Plus High Protein Diet Comments: Please Finely Chop Food Per Pt. Request; 4 oz strawberry EPHP tid w/ meals Routine Orders/Code Status Code Status: Full Code DC O2, CPAP, BIPAP needs Home O2 Discharge instructions: No Wound(s) R upper back/ Lower back: Wound Type: blisters Dressing Change: Dry Sterile Dressing L hip: Wound Type: Surgical Incision lower back: Wound Type: Surgical Incision Dressing Change: Dry Sterile Dressing left tamayo: Wound Type: Abrasion proximal incision: Wound Type: Surgical Incision Dressing Change: Dry Sterile Dressing Therapies Weight Bearing: Weight bearing as tolerated Extremity Affected:: Bilateral Lower Physical Therapy: Eval and Treat Occupational Therapy: Eval and Treat Problem/Diagnosis (1) Debility: Status: Acute Code(s): R53.81 - Other malaise (2) Closed L2 vertebral fracture: Status: Inactive Code(s): S32.029A - Unspecified fracture of second lumbar vertebra, initial encounter for closed fracture (3) Herniated lumbar intervertebral disc: Status: Inactive Code(s): M51.26 - Other intervertebral disc displacement, lumbar region (4) Closed left hip fracture: Status: Resolved Code(s): S72.002A - Fracture of unspecified part of neck of left femur, initial encounter for closed fracture (5) GERD (gastroesophageal reflux disease): Status: Acute Code(s): K21.9 - Gastro-esophageal reflux disease without esophagitis (6) BPH (benign prostatic hyperplasia): Status: Acute Code(s): N40.0 - Benign prostatic hyperplasia without lower urinary tract symptoms (7) Insomnia: Status: Acute Code(s): G47.00 - Insomnia, unspecified (8) Muscle spasm: Status: Acute Code(s): M62.838 - Other muscle spasm Plan 69 year old male with below past medical history hospitalized for L2 fracture, herniate lumbar disc, underwent T11 - L4 posterior spinal fusion, L2 laminectomy decompression 04/13/2024, complicated by postoperative anemia, hyponatremia, recent left hip fracture, underwent left hip ORIF cephalomedullary gamma nailing 04/06/2024, admitted to TCU with debility, here for rehabilitation, strengthening, prior to discharge home with . * Debility - PT/OT. * Pain - Tylenol 1000mg q8, Tramadol 50mg 4x/day, Oxycodone 5-10mg q4 prn. * Bowel - Miralax 17gm daily, senna/colace 2 tablets bid, Magnesium citrate 300mL daily prn. * Adult immunization - Administer pneumonia vaccine, covid vaccine, flu vaccine as appropriate. * DVT prophylaxis - Held due to GI bleed. * Muscle spasm - Flexeril 5mg tid prn. * GERD - Finasteride 5mg daily, Tamsulosin 0.4mg daily. * Lumbar radiculopathy - Gabapentin 600mg 5x/day. * Skin irritation - Calmoseptine topical bid, Hytone 2.5% topical bid. * Nutrition - MVI 1 tablet daily. * Pruritus - Loratadine 10mg daily prn. * Depression/appetite loss/insomnia - Mirtazapine 7.5mg qhs. * Tinea Corporis - Nystatin powder topical bid. * Duodenal ulcer - Pantoprazole 40mg bid thru 07/21/2024, Sucralfate 1gm achs thru 05/26/2024. Allergies/Procedures Done in Hospital Allergies cephalexin (From Keflex) Allergy (Intermediate, Verified 04/28/24 16:20) Rash Sulfa (Sulfonamide Antibiotics) Allergy (Verified 04/28/24 16:20) Hives Procedures: None Type of Care/Length of Stay Estimated LOS: Convalescent Care Less Than 30 days Type of Care Needed: Intermediate Rehab Potential: Fair Prognosis: Fair Additional Orders/Day of Discharge Day of Discharge: 05/29/24 Dietary and Speech Recommendations Dietitian Recommendations/Changes: Continue liberal regular diet w/ finely chopped foods per res request. Continue 4 oz strawberry EPHP w/ meals for increased nutrition to help w/ surgical healing. Follow Up Care Please Follow Up With: james Vigil MD Please Follow Up With: james Vigil MD When: As scheduled. Discharge Plan Admission Admit Date/Time: 04/18/24 16:35 Primary Reason for Your Visit: Debility. Attending Provider: Fernando Mejia Chi Primary Care Provider: Jalil Tubbs Instructions Additional Instructions / Restrictions: Discharge to SNF 05/29/2024, intermediate, part B therapies. Discharge Orders/Prescriptions Prescriptions: New gabapentin 600 mg Tablet 600 mg PO 5X/DAY Qty: 0 0RF acetaminophen 500 mg Tablet 1,000 mg PO Q8 Qty: 0 0RF loratadine [Allergy Relief (loratadine)] 10 mg tablet 10 mg PO DAILY PRN (Reason: pruritus) Qty: 0 0RF pantoprazole 40 mg Tablet,Delayed Release (Dr/Ec) 40 mg PO BID Qty: 0 0RF magnesium citrate Solution 300 ml PO DAILY PRN (Reason: Constipation) Qty: 0 0RF mirtazapine 15 mg Tablet 7.5 mg PO QHS Qty: 0 0RF nystatin [Nyamyc] 100,000 unit/gram Powder 1 applic topical BID Qty: 0 0RF Protocol: *Topical Application Instructions APPLICATION INSTRUCTIONS: apply to groin oxycodone 5 mg Tablet 5 - 10 mg PO Q4H PRN PRN (Reason: Pain Score 1-10) 3 Days Qty: 36 0RF menthol-zinc oxide [Calmoseptine] 0.44-20.6 % Ointment 1 applic topical BID Qty: 0 0RF Protocol: *Topical Application Instructions APPLICATION INSTRUCTIONS: bilateral buttocks Xarelto 15 mg Tablet 15 mg PO BID 17 Days Qty: 34 0RF rivaroxaban 20 mg Tablet 20 mg PO DINNER Qty: 30 0RF Rx Instructions: Start 06/16/2024 after 21 days of Xarelto 15mg po bid. Stop date 08/23/2024. sennosides-docusate sodium [Stimulant Laxative Plus] 8.6-50 mg Tablet 2 tab PO BID Qty: 0 0RF tramadol 50 mg Tablet 50 mg PO 4X/DAY 3 Days Qty: 12 0RF Continued finasteride 5 mg tablet 5 mg PO DAILY tamsulosin 0.4 mg capsule 0.4 mg PO DAILY multivitamin [Daily Multi-Vitamin] Tablet 1 tab PO DAILY polyethylene glycol 3350 [Natura-LAX] 17 gram/dose powder 17 g PO DAILY cyclobenzaprine 5 mg tablet 5 mg PO TID PRN (Reason: muscle relax) Discontinued gabapentin 600 mg tablet 600 mg PO .5x day famotidine 40 mg tablet 40 mg PO DAILY albuterol sulfate 2.5 mg /3 mL (0.083 %) Solution For Nebulization 2.5 mg inhalation Q2H PRN PRN (Reason: Dyspnea, wheezing) Qty: 0 0RF melatonin 3 mg Tablet 3 mg PO QHS PRN PRN (Reason: Insomnia) Qty: 0 0RF calcium carbonate 200 mg calcium (500 mg) Tablet,Chewable 500 mg PO TIDCM Qty: 0 0RF alum-mag hydroxide-simeth [Mag-Al Plus Extra Strength] 400-400-40 mg/5 mL Suspension 30 ml PO Q6H PRN PRN (Reason: Gastric Burning) Qty: 0 0RF Ensure Plus High Protein 0.08 gram-1.5 kcal/mL Liquid 120 ml PO TIDCM Qty: 0 0RF oxycodone 5 mg Tablet 5 - 10 mg PO Q4H PRN PRN (Reason: Pain Score 4-10) Qty: 0 0RF rivaroxaban 10 mg tablet 10 mg PO DAILY Qty: 30 0RF methocarbamol 500 mg tablet 500 mg PO TID PRN (Reason: spasms) Qty: 10 0RF tramadol 50 mg tablet 50 mg PO 4X/DAY mupirocin 2 % ointment 1 applic topical TID sennosides-docusate sodium [Stimulant Laxative Plus] 8.6-50 mg Tablet 1 tab PO BID Rx Instructions: hold for loose stools acetaminophen 500 mg Tablet 500 mg PO Q6H Referrals / Follow Up: Jalil Tubbs MD [Primary Care Provider] - Disposition Disposition (needs filled in before D/C Order can be placed): NonSkilled NH/Intermed Care (4) Closed left hip fracture Qualifiers: Encounter type: initial encounter Qualified Code(s): S72.002A - Fracture of unspecified part of neck of left femur, initial encounter for closed fracture
[2024-05-25] MEDS: oxyCODONE 5 MG Tablet PO (22:14)
[2024-05-26] MEDS: cycloBENZAPRine HCl 5 MG TABLET PO ×3 (00:57→23:14)
[2024-05-26] MEDS: Sucralfate 1 GM Tablet PO ×4 (05:00→23:13)
[2024-05-26] MEDS: Acetaminophen 500 MG Tablet 1000 MG PO ×3 (05:00→23:10)
[2024-05-26] MEDS: traMADol 50 MG Tablet PO ×4 (05:00→23:07)
[2024-05-26] MEDS: Gabapentin 600 MG Tablet PO ×5 (05:00→23:08)
--- NOTE | 2024-05-26 05:04 | NURSING ---
pt requesting to get up at 7 as he did not sleep well, but would still like to be up before breakfast.
--- NOTE | 2024-05-26 05:04 | PCA ---
This [employer] overheard nurse asking patient if he was ready to get up this morning, and patient replied i would like to get up closer to 7:00 as i did not sleep very well
--- NOTE | 2024-05-26 08:00 | RAD_ITS ---
EXAM: XR LUMBOSACRAL SPINE, 2 OR 3 VIEWS CLINICAL INDICATION: status post lumbar fusion -- AP/LAT TECHNIQUE: Frontal and lateral views of the lumbar spine and sacrum. COMPARISON: Hip and pelvis radiographs, 12-24; MRI lumbar spine, 04/12/2024. FINDINGS: VERTEBRAE: Chronic compression deformity of L5 and mild chronic compression deformity of L4. Chronic fracture deformity of L2. Status post T11-L4 posterior fusion. No spondylolisthesis. Preservation of the normal lumbar lordosis. Multilevel endplate osteophytosis and facet arthrosis. SACRUM/COCCYX: SI joint arthrosis bilaterally. DISC SPACES: Multilevel intervertebral disc height loss.. GASTROINTESTINAL TRACT: Normal as visualized. Included bowel gas pattern is non-obstructive. RAD/Lumbar Spine 2 or 3 Views IMPRESSION: Status post T11-L4 posterior fusion. Chronic fracture deformities of multiple lumbar vertebra correlating with prior MRI. No definite new osseous abnormality. Electronically Signed: Levi Winchester DO at 11:01 EST ,
[2024-05-26] MEDS: Multivitamins,Therapeutic Tablet 1 TABLET PO (08:25)
[2024-05-26] MEDS: Finasteride 5 MG Tablet PO (08:26)
[2024-05-26] MEDS: Senna/Docusate Sodium 1 Tablet 2 TABLET PO ×2 (08:26→23:09)
[2024-05-26] MEDS: Pantoprazole Sodium 40 MG Tablet PO ×2 (08:27→23:09)
[2024-05-26] MEDS: Menthol/Lanolin/Calamine/Znox 113 GM Tube 1 APPLIC TOPICAL ×2 (08:28→23:15)
[2024-05-26] MEDS: Tamsulosin HCl 0.4 MG Capsule PO (08:28)
[2024-05-26] MEDS: Nystatin Powder 15gm Bottle 1 APPLIC TOPICAL ×2 (08:30→23:15)
--- NOTE | 2024-05-26 10:28 | NURSING ---
Xrays done for appt with Dr. Merritt on 05/30/24. Disc received with images, will send with resident at [facility] to take to appt.
--- NOTE | 2024-05-26 11:46 | CASEMGMT ---
Addendum entered by Mackenzie Potter 05/26/24 14:44: MAYCO spoke with pt to confirm DC plans. Completed BIMS () and PHQ-9 (03/19) for MDS assessment. Mackenzie SILVEIRA Original Note: Social Work After discussion with family, pt has chosen [facility] for DC. CC is agreeable to admit 05/28. SW to secure and notified [facility]. SW scheduled cot transport through [facility] for 1100. PASRR completed. DC paperwork sent to [facility]. IDT updated. Plan: DC 05/28, CC, intermediate, private pay, part B therapies Mackenzie DOS SANTOSW
[2024-05-26] MEDS: Rivaroxaban 15 MG Tablet PO ×2 (12:03→23:13)
--- NOTE | 2024-05-26 13:34 | NURSING ---
CD from [facility] Gerard was placed in Discharge Folder for Dr martinez on May 30
[2024-05-26 15:03] VITALS: BP 106/66; PULSE 98; RESP 16; TEMP 37; O2SAT 94
[2024-05-26] MEDS: oxyCODONE 5 MG Tablet PO (20:30)
[2024-05-26] MEDS: Mirtazapine 15 MG Tablet 7.5 MG PO (23:11)
[2024-05-27] MEDS: Acetaminophen 500 MG Tablet 1000 MG PO ×3 (05:20→21:19)
[2024-05-27] MEDS: traMADol 50 MG Tablet PO ×4 (05:20→21:19)
[2024-05-27] MEDS: Gabapentin 600 MG Tablet PO ×5 (05:20→21:18)
[2024-05-27 09:24] VITALS: BP 121/65; PULSE 76; RESP 17; TEMP 36.3; O2SAT 92
[2024-05-27] MEDS: Menthol/Lanolin/Calamine/Znox 113 GM Tube 1 APPLIC TOPICAL (09:27)
[2024-05-27] MEDS: Multivitamins,Therapeutic Tablet 1 TABLET PO (09:27)
[2024-05-27] MEDS: Finasteride 5 MG Tablet PO (09:28)
[2024-05-27] MEDS: Senna/Docusate Sodium 1 Tablet 2 TABLET PO ×2 (09:28→21:20)
[2024-05-27] MEDS: Tamsulosin HCl 0.4 MG Capsule PO (09:28)
[2024-05-27] MEDS: Pantoprazole Sodium 40 MG Tablet PO ×2 (09:28→21:21)
[2024-05-27] MEDS: Nystatin Powder 15gm Bottle 1 APPLIC TOPICAL ×2 (09:28→21:18)
[2024-05-27] MEDS: Rivaroxaban 15 MG Tablet PO ×2 (09:29→21:21)
--- NOTE | 2024-05-27 17:38 | NURSING ---
Hard scripts for Xarelto given to patient's daughter to be filled by patient's pharmacy. Per daughter will give Xarelto to facility once filled.
[2024-05-27] MEDS: cycloBENZAPRine HCl 5 MG TABLET PO (20:39)
[2024-05-27 21:20] VITALS: BP 101/55; PULSE 78; O2SAT 94
[2024-05-27] MEDS: Mirtazapine 15 MG Tablet 7.5 MG PO (21:22)
[2024-05-27] MEDS: Oseltamivir Phosphate 75 MG Capsule PO (22:16)
[2024-05-28] MEDS: oxyCODONE 5 MG Tablet PO (00:52)
[2024-05-28] MEDS: traMADol 50 MG Tablet PO ×2 (05:19→11:00)
[2024-05-28] MEDS: Acetaminophen 500 MG Tablet 1000 MG PO (05:19)
[2024-05-28] MEDS: Gabapentin 600 MG Tablet PO ×2 (05:19→09:37)
[2024-05-28 09:28] VITALS: BP 112/57; PULSE 80; RESP 17; TEMP 36.9; O2SAT 94
[2024-05-28] MEDS: Multivitamins,Therapeutic Tablet 1 TABLET PO (09:33)
[2024-05-28] MEDS: Menthol/Lanolin/Calamine/Znox 113 GM Tube 1 APPLIC TOPICAL (09:33)
[2024-05-28] MEDS: Tamsulosin HCl 0.4 MG Capsule PO (09:33)
[2024-05-28] MEDS: Finasteride 5 MG Tablet PO (09:34)
[2024-05-28] MEDS: Nystatin Powder 15gm Bottle 1 APPLIC TOPICAL (09:34)
[2024-05-28] MEDS: Pantoprazole Sodium 40 MG Tablet PO (09:34)
[2024-05-28] MEDS: Senna/Docusate Sodium 1 Tablet 2 TABLET PO (09:34)
[2024-05-28] MEDS: Rivaroxaban 15 MG Tablet PO (09:35)
--- NOTE | 2024-05-28 09:53 | NURSING ---
Addendum entered by Rasheed Caldwell 05/28/24 11:16: Patient exited unit at this time. DC to [facility]. Original Note: Report called to [facility] and given to nurse Sotelo.
== END 2024-05-28 11:15 | disposition intermediate care facility (04) | DRG 560 ==
PROVIDERS: Internal Medicine; Admitting Provider Family Medicine Geriatric Medicine; PCP Internal Medicine; Referring Provider Family Medicine Geriatric Medicine; Visit Provider Family Medicine Geriatric Medicine
DX: S32.029D Unspecified fracture of second lumbar vertebra, subsequent encounter for fracture with routine healing (principal); B37.81 Candidal esophagitis; D62 Acute posthemorrhagic anemia; E87.1 Hypo-osmolality and hyponatremia; E83.51 Hypocalcemia; F32.A Depression, unspecified; K26.9 Duodenal ulcer, unspecified as acute or chronic, without hemorrhage or perforation; M47.26 Other spondylosis with radiculopathy, lumbar region; L01.00 Impetigo, unspecified; K21.9 Gastro-esophageal reflux disease without esophagitis; M51.16 Intervertebral disc disorders with radiculopathy, lumbar region; M48.061 Spinal stenosis, lumbar region without neurogenic claudication; M62.838 Other muscle spasm; G47.33 Obstructive sleep apnea (adult) (pediatric); M17.12 Unilateral primary osteoarthritis, left knee; S72.142D Displaced intertrochanteric fracture of left femur, subsequent encounter for closed fracture with routine healing; Z79.52 Long term (current) use of systemic steroids; N40.0 Benign prostatic hyperplasia without lower urinary tract symptoms; Z87.891 Personal history of nicotine dependence; G47.00 Insomnia, unspecified; Z79.899 Other long term (current) drug therapy; S00.81XD Abrasion of other part of head, subsequent encounter; X58.XXXD Exposure to other specified factors, subsequent encounter; B35.4 Tinea corporis; Z23 Encounter for immunization
CPT/HCPCS: 36415; 36430; 72100; 73502; 80048; 82040; 82274; 83930; 83935; 84300; 84443; 85014; 85018; 85025; 85027; 86850; 86900; 86901; 86920; 86922; 87070; 87205; 87640; 87811; 90480; 91322; 97110; 97162; 97166; 97530; 97535; 97542; 97802; P9016; A4216; J1940; J2405

== ENCOUNTER 2024-04-28 15:53 | Day surgery (SDC) | payer MEDICARE, OTHER, SELFPAY ==
[2024-04-28] VITALS (8 sets, daily range): BP systolic 88–111; BP diastolic 56–67; PULSE 87–96; RESP 16–18; TEMP 37–37.2; O2SAT 94–96; BMI 32.5
--- NOTE | 2024-04-28 16:21 | PCM.PRE.AN2 ---
ASA Classification* ASA Classification ASA Classification: 3 Assessment & Plan Anesthesia* Anesthesia Assessment Anesthesia Assessment: Discussed sedation and/or anesthesia options, risks, benefits, and alternatives with patient/parents/legal guardian/POA. Questions invited. The patient/parents/legal guardian/POA seems to understand and agrees to proceed with anesthesia plan. Reviewed the physical assessment, medical history, allergy history and patient home medications list prior to surgery/procedure/anesthetic and documented any changes. Performed airway and anesthesia risk assessments. Anesthesia Type Anesthesia Type: MAC History Source History Obtained from:: Patient and Chart Anesthesia Focused Assessment* Temperature: 99 F Pulse Rate: 96 Blood Pressure: 111/56 Respiratory Rate: 16 Pulse Ox: 94 Oxygen Delivery Method: Room Air Airway Assessment Mouth opens: >3 cm Mallampati Score: II Teeth Condition: Chipped/Broken (Patient has multiple chipped teeth. Nothing loose.) Neck Range of motion (ROM): Limited ROM (Somewhat decreased extension) Focused Labs Anesthesia Preop lab: CBC WBC 5.5 K/mm3 (4.4-11.0) 04/26/24 05:09 RBC 2.46 M/mm3 (4.6-6.2) L 04/26/24 05:09 Hgb 7.6 g/dL (13.0-16.5) L 04/26/24 05:09 Hct 25.0 % (40-54) L 04/26/24 05:09 Plt Count 219 K/mm3 (150-450) 04/26/24 05:09 CHEMISTRY Potassium 4.1 mmol/L (3.5-5.1) 04/26/24 05:09 Sodium 137 mmol/L (136-145) 04/26/24 05:09 Magnesium 1.9 mg/dL (1.6-2.6) 04/07/24 05:29 Phosphorus 3.0 mg/dL (2.5-4.9) 04/07/24 05:29 BUN 15 mg/dL (7-18) 04/26/24 05:09 Creatinine 0.46 mg/dL (0.70-1.30) L 04/26/24 05:09 Glucose 101 mg/dL (74-106) 04/26/24 05:09 TSH 1.060 uIU/mL (0.358-3.740) 04/22/24 13:09 COAG Pre-Assessment Diagnosis/Proposed Procedure Planned Operative Procedure(s): Esophagogastroduodenoscopy. Anesthesia History Anesthesia History - academic computing director: Anesthesia History - academic computing director Hx Hospitalization Any Problems With Anesthesia No 04/05/24 23:00 Cholinesterase deficiency No 04/05/24 23:00 You/Your Family Experience No 04/05/24 23:00 fever (hyperthermia) with Relationship Recent Exposure to Contagious No 04/28/24 16:03 Disease Does patient have nerve No 04/05/24 23:00 stimulator Patient instructed to have device shut off --Does patient have Pacemaker No 04/28/24 16:03 or ICD? When Was Last Pacemaker Check QUESTION #4 FULL TEXT: You/Your Family Experience fever (hyperthermia) with Anesthesia Last Oral Intake Last Oral intake: Last Oral Intake NPO since 00:00 04/28/24 16:03 Meds taken in AM with sips of Yes 04/28/24 16:03 water? Meds patient instructed to oxy, ultram, neurontin, 04/28/24 16:03 take am of surgery tylenol PONV PONV - academic computing director: PONV - academic computing director Female HX of Motion Sickness HX of N/V After Surgery Non-Smoker Duration of Surgery greater than 60 minutes Number of Risk Factors PONV Score Height & Weight Height & Weight: Anesthesia: Height & Weight Height 6 ft 3 in 04/28/24 16:03 Weight: 117.934 kg 04/28/24 16:03 Body Mass Index (BMI) 32.5 04/28/24 16:03 Respiratory Assessment Respiratory Assessment - academic computing director: Respiratory Tract Infection Hx - academic computing director Hx Respiratory Tract Infection No 04/05/24 23:00 STOP Sleep Apnea STOP Sleep Apnea - academic computing director: STOP Sleep Apnea - academic computing director Hx Hypertension No 04/19/24 16:07 Hx Sleep Apnea No 04/18/24 17:01 CPAP No 04/08/24 15:23 BIPAP No 04/08/24 15:23 Do you snore loudly (louder than talking or can be heard Do you often feel tired/ fatigued/ sleepy during daytime? Has anyone observed you stop breathing during sleep? STOP Results QUESTION #5 FULL TEXT : Do you snore loudly (louder than talking or can be heard through closed doors)? Tobacco Use History Tobacco Use History - academic computing director: Tobacco Use History - academic computing director Tobacco Use Smoking Status Former smoker 04/18/24 17:01 Hx Tobacco Use No 04/18/24 17:01 Years Smoking Packs Smoked per Day Smoking Cessation Date was within the last 15 years Hx Smoking Cessation Date Hx Smoking Cessation Counseling Hematologic Medial History Hematologic Hx - academic computing director: Hematologic Medical Hx - manager payment Hx of Blood Transfusion Hx of Transfusion in last 3 Months Date of Last Transfusion (if within last 3 months) Ever experience any problems with transfusion(s)? Specify any problems Hx of Preganancy in last 3 Months Nurse Filling Out Transfusion & Questions: Date: Time: Patient unable to answer at this time (ie. confused, unrespo /Reproduction History /Reproductive History - academic computing director: /Reproductive Hx- academic computing director Hx Now Gestational Age (in weeks): EDC: Hx Hx Para Hx Section SAB No 04/05/24 23:00 [facility] Medical History RADHA (obstructive sleep apnea) Former tobacco use BPH (benign prostatic hyperplasia) Obesity GERD (gastroesophageal reflux disease) Lumbar back pain with radiculopathy affecting lower extremity History of pelvic fracture Hernia Arthritis Spinal stenosis of lumbar region Home Medications ?Medication ?Instructions ?Recorded ?Last Taken ?Type famotidine 40 mg tablet 40 mg PO DAILY stomach 04/05/24 04/27/24 History finasteride 5 mg tablet 5 mg PO DAILY prostate 04/05/24 Unknown History gabapentin 600 mg tablet 600 mg PO .5x day Pain 04/05/24 04/28/24 History tamsulosin 0.4 mg capsule 0.4 mg PO DAILY Bph 04/05/24 Unknown History albuterol sulfate 2.5 mg/3 mL 2.5 mg (3 mL) inhalation Q2H PRN 04/08/24 Unknown Rx (0.083 %) solution for nebulization PRN Dyspnea, wheezing #0 mL aluminum-mag hydroxide-simethicone 30 ml PO Q6H PRN PRN Gastric 04/08/24 Unknown Rx 400 mg-400 mg-40 mg/5 mL oral susp Burning #0 mL (Mag-Al Plus Extra Strength) calcium carbonate 500 mg (2.5 x 200 mg calcium (500 04/08/24 Unknown Rx mg)) PO TIDCM GERD #0 tabs food supplemt, lactose-reduced 120 ml PO TIDCM Supplement #0 mL 04/08/24 Unknown Rx 0.08 gram-1.5 kcal/mL oral liquid (Ensure Plus High Protein) melatonin 3 mg tablet 3 mg PO QHS PRN PRN Insomnia #0 04/08/24 Unknown Rx tabs methocarbamol 500 mg tablet 500 mg PO TID PRN spasms #10 tabs 04/08/24 Unknown Rx oxycodone 5 mg tablet 5 - 10 mg (1 - 2 x 5 mg) PO Q4H 04/08/24 04/28/24 Rx PRN PRN Pain Score 4-10 #0 tabs rivaroxaban 10 mg tablet 10 mg PO DAILY DVT Prophylaxis #30 04/08/24 Unknown Rx tabs acetaminophen 500 mg tablet 500 mg PO Q6H Pain 04/18/24 04/28/24 History cyclobenzaprine 5 mg tablet 5 mg PO TID PRN muscle relax 04/18/24 Unknown History multivitamin (Daily Multi-Vitamin 1 tab PO DAILY supp 04/18/24 Unknown History tablet) mupirocin 2 % topical ointment 1 applic topical TID chin 04/18/24 Unknown History polyethylene glycol 3350 17 17 g PO DAILY bowels 04/18/24 Unknown History gram/dose oral powder (Natura-LAX) sennosides 8.6 mg-docusate sodium 1 tab PO BID Constipation 04/18/24 Unknown History 50 mg tablet (Stimulant Laxative Plus) tramadol 50 mg tablet 50 mg PO 4X/DAY pain 04/18/24 04/28/24 History Allergy/AdvReac Type Severity Reaction Status Date / Time cephalexin (From Keflex) Allergy Intermediate Rash Verified 04/28/24 16:20 Sulfa (Sulfonamide Allergy Hives Verified 04/28/24 16:20 Antibiotics) Family History Mother Kidney disease Father Heart disease CAD (coronary artery disease) Hypertension Surgical History History of lumbar spinal fusion History of bilateral inguinal hernia repair History of ankle surgery S/P foot surgery, right Social History household members: spouse Smoking Status: Former smoker Tobacco: How many years used: 3 how long ago did patient quit smoking: Smoked in the 1980s x 3 years < 1/4 ppd. alcohol intake: never substance use type: does not use Review of Systems (Anesthesia) ROS Narrative System reviewed and no additional complaints, except as documented.
--- NOTE | 2024-04-28 16:30 | EGD_PTH ---
PATIENT: TAVO SALAZAR LOC: EN U#:[id number] AGE/SX: 69/M ROOM: RE04/28/[address]: Dr. John Tolbert DO : 1955 BED: DIS: 04/28/2024 SPEC #: [id number] RECD: 04/28/24 18:46 STATUS: ELIZABETH WELCH #: [id number] JAY: 04/28/24 16:[address]: John Tolbert DEPT: SURGICAL PATHOLOGY RECD BY: Kanwal Gilmore ENTERED: 05/01/24 07:50 SP TYPE: EGD BIOPSY OT DR: Dr. Jalil Tubbs MD Tissues: Duodenum, NOS Procedures: Surgery Specimen Level IV HEADER OPERATION: EGD with biopsy PRE-OP DIAGNOSIS: Acute blood loss anemia TISSUE SUBMITTED: Duodenum biopsy MICROSCOPIC DIAGNOSIS Duodenum, biopsy: Focal gastric metaplasia and associated acute and chronic inflammation. See comment. 05/02/2024 COMMENT Villi are not prominent. Sprue like changes cannot be excluded. Clinical correlation is suggested. MICROSCOPIC DESCRIPTION Slides are reviewed. GROSS DESCRIPTION Received in fixative is one container labeled with the patient's name and designated Duodenum biopsy. The specimen consists of multiple irregular fragments of light min soft tissue that in aggregate measure 0.7 x 0.2 x 0.1 cm. The specimen is totally submitted in one cassette. 05/01/2024 TC:2 CPT:33663
--- NOTE | 2024-04-28 17:20 | OP.CCLET_ITS ---
04/28/2024 Jalil Tubbs [address] [place] [address] Re : Upper GI endoscopy procedure for Cabrera Naqvi Dear Dr. Tubbs This procedure was performed on Sunday, April 28, 2024. My impressions and recommendations are as follows: Impressions : - Esophageal plaques were found, consistent with candidiasis. - Normal stomach. - Non-bleeding duodenal ulcers with no stigmata of bleeding. Biopsied. Recommendations : - Return patient to referring hospital for ongoing care. - Resume previous diet. - Use Protonix (pantoprazole) 40 mg PO BID for 12 weeks. - Await pathology results. - Use sucralfate tablets 1 gram PO QID for 4 weeks. - Continue present medications. My findings are described in the full procedure note, which is enclosed. If I can be of further assistance, please feel free to contact me at . Sincerely, John Friend, 04/28/2024 5:19:47 PM This report has been signed electronically.
--- NOTE | 2024-04-28 17:20 | OP.EGD_ITS ---
Patient Name: Cabrera Naqvi Procedure Date: 04/28/2024 4:51 PM Date of : 1955 Age: 69 Procedure: Upper GI endoscopy Indications: Melena, Recent gastrointestinal bleeding Providers: John Tolbert DO Medicines: Monitored Anesthesia Care Patient Profile: This is a 69 year old male. Refer to note in patient chart for documentation of history and physical. Patient has symptoms. Complications: No immediate complications. Procedure: Pre-Anesthesia Assessment: - Prior to the procedure, a History and Physical was performed, and patient medications and allergies were reviewed. The patient is competent. The risks and benefits of the procedure and the sedation options and risks were discussed with the patient. All questions were answered and informed consent was obtained. Patient identification and proposed procedure were verified by the physician in the pre-procedure area. Mental Status Examination: alert and oriented. Airway Examination: normal oropharyngeal airway and neck mobility. Respiratory Examination: clear to auscultation. CV Examination: normal. Prophylactic Antibiotics: The patient does not require prophylactic antibiotics. Prior Anticoagulants: The patient has taken no anticoagulant or antiplatelet agents except for NSAID medication. ASA Grade Assessment: II - A patient with mild systemic disease. After reviewing the risks and benefits, the patient was deemed in satisfactory condition to undergo the procedure. The anesthesia plan was to use monitored anesthesia care (MAC). Immediately prior to administration of medications, the patient was re-assessed for adequacy to receive sedatives. The heart rate, respiratory rate, oxygen saturations, blood pressure, adequacy of pulmonary ventilation, and response to care were monitored throughout the procedure. The physical status of the patient was re-assessed after the procedure. After obtaining informed consent, the endoscope was passed under direct vision. Throughout the procedure, the patient's blood pressure, pulse, and oxygen saturations were monitored continuously. The gastroscope was introduced through the mouth, and advanced to the second part of duodenum. The upper GI endoscopy was accomplished without difficulty. The patient tolerated the procedure well. Scope In: 5:01:39 PM Scope Out: 5:07:50 PM Total Procedure Duration Time 0 hours 6 minutes 11 seconds Findings: Localized, white plaques were found in the upper third of the esophagus. The entire examined stomach was normal. Three non-bleeding cratered duodenal ulcers with no stigmata of bleeding were found in the duodenal bulb. The largest lesion was 6 mm in largest dimension. Biopsies were taken with a cold forceps for histology. Verification of patient identification for the specimen was done. Estimated blood loss was minimal. Impression: - Esophageal plaques were found, consistent with candidiasis. - Normal stomach. - Non-bleeding duodenal ulcers with no stigmata of bleeding. Biopsied. Recommendation: - Return patient to referring hospital for ongoing care. - Resume previous diet. - Use Protonix (pantoprazole) 40 mg PO BID for 12 weeks. - Await pathology results. - Use sucralfate tablets 1 gram PO QID for 4 weeks. - Continue present medications. Procedure Code(s): --- Professional --- 70434, Esophagogastroduodenoscopy, flexible, transoral; with biopsy, single or multiple CPT copyright 2021 [employer]. All rights reserved. The codes documented in this report are preliminary and upon insurance coder review may be revised to meet current compliance requirements. John Tolbert DO 04/28/2024 5:19:47 PM This report has been signed electronically. Number of Addenda: 0 Note Initiated On: 04/28/2024 4:51 PM
--- NOTE | 2024-04-28 17:20 | PCM.POST.ANE ---
Anesthesia: Postop Eval I Current Vital Signs Temperature: 98.6 F Pulse Rate: 87 Blood Pressure: 88/58 Respiratory Rate: 18 Pulse Ox: 95 Oxygen Delivery Method: Room Air Assessment Airway patent: Yes Spontaneous unlabored respirations: Yes Mental status: Asleep nausea: No Vomiting: No Anesthesia Complication: No Fluid Hydration Crystalloid volume administer (ml): 30 Total IV fluid infused: 30 Progress Note Anesthesia document: Postop Eval 1 completed: Yes
--- NOTE | 2024-04-28 17:59 | PCM.POSTANE2 ---
Anesthesia Postop Eval I Sum Postop Eval Completion status Anesthesia document: Postop Eval 1 completed: Yes Anesthesia Postop Eval I Summary Anesthesia Postop Eval I Summary: Anesthesia Postop Eval I: Assessment Summary Airway patent Yes 04/28/24 17:21 [email or web address] Spontaneous unlabored Yes 04/28/24 17:21 [email or web address] respirations Mental status Asleep 04/28/24 17:21 [email or web address] nausea No 04/28/24 17:21 [email or web address] Vomiting No 04/28/24 17:21 [email or web address] Anesthesia Postop Eval I: Fluid Summary Crystalloid volume administer 30 04/28/24 17:21 [email or web address] (ml) Colloids volume administered ( ml) Blood Product volume administered (ml) Total IV fluid infused 30 04/28/24 17:21 [email or web address] Anesthesia Postop Eval I: Summary Notes Anesthesia Complication No 04/28/24 17:21 [email or web address] Anesthesia Complication Comment: Post-operative progress note Anesthesia: Postop Eval II Evaluation Mental status: Awake Pain Level: 0 nausea: No Vomiting: No
== END 2024-04-28 18:30 | disposition home or self-care (01) ==
LOC: EN 15:55 → AC 15:55
PROVIDERS: PCP Internal Medicine; Referring Provider Internal Medicine; Visit Provider Internal Medicine Gastroenterology
PROC: 0DJ08ZZ Inspection of Upper Intestinal Tract, Via Natural or Artificial Opening Endoscopic (ICD-10-PCS; CPT 43235; principal; 2024-04-28 16:25)
DX: K26.9 Duodenal ulcer, unspecified as acute or chronic, without hemorrhage or perforation (principal); K22.89 Other specified disease of esophagus; K92.1 Melena; D50.9 Iron deficiency anemia, unspecified; G47.33 Obstructive sleep apnea (adult) (pediatric); N40.0 Benign prostatic hyperplasia without lower urinary tract symptoms; E66.9 Obesity, unspecified; K21.9 Gastro-esophageal reflux disease without esophagitis; M54.16 Radiculopathy, lumbar region; M48.061 Spinal stenosis, lumbar region without neurogenic claudication; Z88.2 Allergy status to sulfonamides; Z98.1 Arthrodesis status; Z68.32 Body mass index [BMI] 32.0-32.9, adult; Z79.01 Long term (current) use of anticoagulants; Z79.899 Other long term (current) drug therapy; Z87.891 Personal history of nicotine dependence
CPT/HCPCS: 43239; 88305; A4216

== ENCOUNTER → 2024-05-25 | Outpatient (CLI) | payer MEDICARE, OTHER, SELFPAY ==
--- NOTE | 2024-05-25 08:25 | VDLE_ITS ---
Reason For Study: LLE Swelling Procedure LEFT This is a venous duplex using B-mode, color GSV is normal. flow and spectral Doppler. Acute deep vein thrombosis is noted in the Exam performed portable in patient room. CFV. It is dilated and NONCOMPRESSIBLE. The exam was of fair technical quality due Acute deep vein thrombosis is noted in the to patient immobility / swelling. FV. It is dilated and NONCOMPRESSIBLE. A preliminary report was called and/or faxed Acute deep vein thrombosis is noted in the to Sonal - TCU RN. POP V. It is dilated and NONCOMPRESSIBLE. Acute deep vein thrombosis is noted in the T/P Trunk. It is dilated and NONCOMPRESSIBLE. Acute deep vein thrombosis is noted in the PTV. It is dilated and NONCOMPRESSIBLE. Acute deep vein thrombosis is noted in the Per V. It is dilated and NONCOMPRESSIBLE. Flow is noted in Deep FV with color doppler. VL/Venous Duplex US, Unilateral Interpretation Summary Acute deep vein thrombosis is noted in the left common femoral vein, femoral ve in, popliteal vein, tibioperoneal trunk vein, posterior tibial vein, peroneal vein Ordering Physician: Fernando Mejia Chi Referring Physician: Jalil Tubbs M.D. Performed By: Don Crespo RVT
== END | disposition home or self-care (01) ==
PROVIDERS: PCP Internal Medicine; Referring Provider Family Medicine Geriatric Medicine; Visit Provider Family Medicine Geriatric Medicine
DX: M79.89 Other specified soft tissue disorders (principal)
CPT/HCPCS: 93971

== ENCOUNTER → 2024-08-01 | Outpatient (CLI) | payer MEDICARE, OTHER, SELFPAY ==
--- NOTE | 2024-08-01 10:55 | RAD_ITS ---
EXAM: XR Left Hip With Pelvis When Performed, 2 or 3 Views CLINICAL INDICATION: ACUTE PAIN TECHNIQUE: Two or three views of the left hip with pelvis when performed. COMPARISON: No relevant prior studies available. FINDINGS: BONES/JOINTS: Status post intramedullary sindy fixation with fixation pin through the femoral head. Intact hardware. Anatomic position. Secondary posttraumatic degenerative changes. No acute fracture. No dislocation. SOFT TISSUES: Unremarkable. RAD/HIP, UNI W/ Pelvis 2-3 Views IMPRESSION: Postoperative changes as above. Reading Location: [facility]
--- NOTE | 2024-08-01 10:55 | RAD_ITS ---
PROCEDURE: LUMBAR SPINE 2 OR 3 VIEWS REASON FOR EXAM: PAIN PLEASE DO UPRIGHT AP AND LAT TECHNIQUE: 2 view(s) of the lumbar spine COMPARISON: May 2024 FINDINGS: Fusion changes again detected. Demineralization. Multilevel degenerative disc disease with compression deformities again detected. All of the compression deformities appear similar although difficult to assess for subtle change when compared to prior. Bilateral nephrolithiasis again seen. RAD/Lumbar Spine 2 or 3 Views IMPRESSION: Postsurgical changes overall similar when compared to prior and background magalie neralization with compression deformities. No features of hardware complication. If concern persists for nerve root impin gement, MRI is advised Reading Location: [facility]
== END | disposition home or self-care (01) ==
PROVIDERS: PCP Internal Medicine; Referring Provider Orthopaedic Surgery Orthopaedic Surgery of the Spine; Visit Provider Orthopaedic Surgery Orthopaedic Surgery of the Spine
DX: M54.50 Low back pain, unspecified (principal); M25.552 Pain in left hip; Z98.890 Other specified postprocedural states
CPT/HCPCS: 72100; 73502

== ENCOUNTER → 2024-08-22 | Outpatient (REF) | payer MEDICARE, OTHER, SELFPAY ==
[2024-08-22 09:20] LABS: Hematocrit 36.2 % (40-54); Hemoglobin 11.9 g/dL (13.0-16.5); Mean Corp Hgb Conc 32.9 g/dL (32-36); Mean Corpuscular Hgb 31.2 pg (27.0-32.0); Mean Platelet Vol. 10.5 fl (6.2-12.0); Platelet Count 161 K/mm3 (150-450); RBC Distribution Width CV 14.9 % (11.6-14.6); RBC Distribution Width SD 51.2 fl (35.1-43.9); Red Blood Count 3.81 M/mm3 (4.6-6.2); White Blood Count 4.2 K/mm3 (4.4-11.0)
== END ==
LOC: OLS.WCC 04:00
PROVIDERS: PCP Internal Medicine; Referring Provider Family Medicine; Visit Provider Family Medicine
DX: D64.9 Anemia, unspecified (principal)
CPT/HCPCS: 36415; 85027

== ENCOUNTER → 2024-09-21 | Outpatient (REF) | payer MEDICARE, OTHER, SELFPAY ==
[2024-09-22 04:07] LABS: Prealbumin 20 mg/dL (10-36)
== END ==
LOC: OLS.WCC 05:00
PROVIDERS: PCP Internal Medicine; Visit Provider Family Medicine
DX: K26.9 Duodenal ulcer, unspecified as acute or chronic, without hemorrhage or perforation (principal); D50.0 Iron deficiency anemia secondary to blood loss (chronic); E83.51 Hypocalcemia
CPT/HCPCS: 36415; 84134